=== PATIENT | male | born 1965 | race American Indian/Alaskan Native ===

== ENCOUNTER 2017-02-14 21:47 | Emergency (ER) | payer MEDICAID ==
[2017-02-14 22:22] VITALS: BMI 29.0
[2017-02-14 22:26] VITALS: TEMP 98.9
--- NOTE | 2017-02-14 23:02 | ED PDOC ---
Arrival/HPI - General Chief Complaint: Seizure Time Seen by Provider: 02/14/17 22:16 Historian: Patient - History of Present Illness Narrative History of Present Illness (Text): 02/14/17 22:58 A 51 year old male, whose past medical history includes seizures, brought in by ambulance after episode of seizure that occurred an hour ago complaining of pain to the right clavicle. Patient notes he hit his collar bone but does not remember seizure. Patient also notes seizures are worse in the summer heat. Reports last seizure was two months ago. Patient denies any neck pain, vomiting , diarrhea, cough, fever or any other complaints at this time. Time/Duration: 1 hour Symptom Onset: Sudden Activities at Onset: Rest Associated Symptoms (Text): none Past Medical History - Provider Review Nursing Documentation Reviewed: Yes - Cardiac Hx Cardiac Disorders: No - Pulmonary Hx Respiratory Disorders: No - Neurological Hx Seizures: Yes - HEENT Hx HEENT Disorder: No - Renal Hx Renal Disorder: No - Endocrine/Metabolic Hx Endocrine Disorders: No - Hematological/Oncological Hx Blood Disorders: No - Integumentary Hx Dermatological Disorder: No - Musculoskeletal/Rheumatological Hx Musculoskeletal Disorders: No - Gastrointestinal Hx Gastrointestinal Disorders: No - Genitourinary/Gynecological Hx Genitourinary Disorders: No - Psychiatric Hx Psychophysiologic Disorder: No Hx Substance Use: No - Anesthesia Hx Anesthesia: No Family/Social History - Physician Review Nursing Documentation Reviewed: Yes Family/Social History: No Known Family HX Smoking Status: Light Smoker < 10 Cigarettes Daily Hx Alcohol Use: Yes Frequency of alcohol use: Socially Hx Substance Use: No Allergies/Home Meds Allergies/Adverse Reactions: Allergies No Known Allergies Allergy (Verified 02/14/17 22:14) Home Medications: Home Meds Medication Instructions Recorded Confirmed Divalproex [Depakote ER] 500 mg PO TID 02/14/17 02/14/17 Lamotrigine [Lamictal] 150 mg PO TID 02/14/17 02/14/17 Review of Systems - Physician Review All systems were reviewed & negative as marked: Yes - Review of Systems Constitutional: absent: Fevers Respiratory: absent: Cough Gastrointestinal: absent: Diarrhea, Vomiting Musculoskeletal: Other (clavicle pain). absent: Neck Pain Neurological: Seizure Physical Exam Vital Signs Reviewed: Yes Vital Signs Temp Pulse Resp BP Pulse Ox 02/15/17 01:00 60 20 121/70 100 02/15/17 00:00 67 20 114/73 97 02/14/17 23:00 81 18 126/78 96 02/14/17 22:25 98.9 F 82 16 108/68 98 02/14/17 22:15 98.4 F 83 16 108/68 99 Temperature: Afebrile Blood Pressure: Normal Pulse: Regular Respiratory Rate: Normal Appearance: Positive for: Well-Appearing, Non-Toxic, Comfortable Pain Distress: None Mental Status: Positive for: Alert and Oriented X 3 - Systems Exam Head: Present: Atraumatic, Normocephalic Pupils: Present: PERRL Extroacular Muscles: Present: EOMI Conjunctiva: Present: Normal Mouth: Present: Moist Mucous Membranes Nose (Internal): No: Epistaxis Neck: Present: Normal Range of Motion Respiratory/Chest: Present: Clear to Auscultation, Good Air Exchange. No: Respiratory Distress, Accessory Muscle Use Cardiovascular: Present: Regular Rate and Rhythm, Normal S1, S2. No: Murmurs Abdomen: Present: Normal Bowel Sounds. No: Tenderness, Distention, Peritoneal Signs Back: Present: Normal Inspection Upper Extremity: Present: Tenderness (over mid clavicle). No: Cyanosis, Edema Lower Extremity: Present: Normal Inspection. No: Edema Neurological: Present: GCS=15, CN II-XII Intact, Speech Normal Skin: Present: Warm, Dry, Normal Color, Abrasion (superficial inferior lateral L eye). No: Rashes Psychiatric: Present: Alert, Oriented x 3, Normal Insight, Normal Concentration Medical Decision Making ED Course and Treatment: 02/15/17 00:57 Radiology right clavicle: No acute fracture, interpreted by me. - Lab Interpretations Lab Results: Lab Results 02/14/17 22:58: POC Glucose (mg/dL) 108 I have reviewed the lab results: Yes - RAD Interpretation Radiology Orders: 02/14/17 22:41 CLAVICLE RIGHT [RAD] Stat - EKG Interpretation Interpreted by ED Physician: Yes Type: 12 lead EKG - Medication Orders Current Medication Orders: Discontinued Medications Ibuprofen (Motrin Tab) 800 mg PO STAT STA Stop: 02/14/17 22:42 Last Admin: 02/14/17 23:07 Dose: 800 mg - Scribe Statement The provider has reviewed the documentation as recorded by the Shane Patterson Provider Scribe Attestation: All medical record entries made by the Fawnibe were at my direction and personally dictated by me. I have reviewed the chart and agree that the record accurately reflects my personal performance of the history, physical exam, medical decision making, and the department course for this patient. I have also personally directed, reviewed, and agree with the discharge instructions and disposition. Disposition/Present on Arrival - Present on Arrival History of DVT/PE: No History of Uncontrolled Diabetes: No Urinary Catheter: No History of Decub. Ulcer: No History Surgical Site Infection Following: None - Disposition Diagnosis: Clavicle pain Disposition: HOME/ ROUTINE Disposition Time: 01:04 Condition: STABLE Additional Instructions: Please follow up with your primary doctor. Return to the ER for any worsening symptoms or for any other concerns. Prescriptions: Naproxen [Naprosyn] 500 mg PO Q12H PRN #10 tablet PRN Reason: Pain, Moderate (4-7) Referrals: [facility] at [facility] [place] [Outside] - Follow up with primary
[2017-02-15 00:23] VITALS: RESP 20
[2017-02-15 01:16] VITALS: BP 121/70; PULSE 60; O2SAT 100
--- NOTE | 2017-02-15 08:51 | RAD ---
PROCEDURE: Radiographs of the right clavicle. HISTORY: fall pain COMPARISON: None available. FINDINGS: RIGHT CLAVICLE: No acute displaced fracture identified. Tiny well corticated ossific density adjacent to acromioclavicular joint space appears chronic. JOINTS: Glenohumeral joint space narrowing. Acromioclavicular arthropathy. SOFT TISSUES: Grossly unremarkable. OTHER FINDINGS: None. IMPRESSION: No acute displaced fracture identified. If symptoms persist or if there is continued clinical concern, x-ray follow-up in 7-10 days should be considered.
--- NOTE | 2017-02-15 15:52 | CARD ---
APPROVED REPORT EKG Measurement Heart [id number] <Conclusion> Normal sinus rhythm Normal ECG
== END 2017-02-15 01:23 | disposition home or self-care (01) ==
LOC: MERGE 21:47 → ED 21:47
DX: M25.511 Pain in right shoulder (principal)

== ENCOUNTER 2017-03-08 13:46 | Emergency (ER) | payer MEDICAID ==
[2017-03-08 13:57] VITALS: TEMP 98.3; BMI 27.7
--- NOTE | 2017-03-08 14:49 | ED PDOC ---
Arrival/HPI - General Chief Complaint: Chest Pain Time Seen by Provider: 03/08/17 13:50 Historian: Patient - History of Present Illness Narrative History of Present Illness (Text): 03/08/17 14:32 51 year old male whose past medical history includes seizures, on Lamictal and Depakote, presents to the emergency department complaining of chest pain and periumbilical pain that began 1 hour prior to arrival. Patient reports nausea and one episode of non-bloody vomiting before the pain began. He reports the chest pain has since resolved but is still complaining of periumbilical pain. Denies fever of chills. No diarrhea. No headache, urinary, stool changes, or other complaints. Time/Duration: 1 hour Symptom Onset: Sudden Modifying Factors (Text): None Context: Home Past Medical History - Provider Review Nursing Documentation Reviewed: Yes - Cardiac Hx Cardiac Disorders: No - Pulmonary Hx Respiratory Disorders: No - Neurological Hx Seizures: Yes - HEENT Hx HEENT Disorder: No - Renal Hx Renal Disorder: No - Endocrine/Metabolic Hx Endocrine Disorders: No - Hematological/Oncological Hx Blood Disorders: No - Integumentary Hx Dermatological Disorder: No - Musculoskeletal/Rheumatological Hx Musculoskeletal Disorders: No - Gastrointestinal Hx Gastrointestinal Disorders: No - Genitourinary/Gynecological Hx Genitourinary Disorders: No - Psychiatric Hx Psychophysiologic Disorder: No Hx Substance Use: No - Anesthesia Hx Anesthesia: No Family/Social History - Physician Review Nursing Documentation Reviewed: Yes Family/Social History: Unknown Family HX Smoking Status: Light Smoker < 10 Cigarettes Daily Hx Alcohol Use: Yes Hx Substance Use: No Allergies/Home Meds Allergies/Adverse Reactions: Allergies No Known Allergies Allergy (Verified 02/14/17 22:14) Home Medications: Home Meds Medication Instructions Recorded Confirmed Divalproex [Depakote ER] 500 mg PO TID 02/14/17 03/08/17 Lamotrigine [Lamictal] 150 mg PO TID 02/14/17 03/08/17 Review of Systems - Physician Review All systems were reviewed & negative as marked: Yes - Review of Systems Constitutional: Other (No chills). absent: Fevers Eyes: absent: Vision Changes ENT: absent: Hearing Changes Respiratory: absent: SOB Cardiovascular: Chest Pain (resolved) Gastrointestinal: Abdominal Pain (periumbilical), Nausea, Vomiting. absent: Stool Changes, Diarrhea Genitourinary Male: absent: Dysuria, Frequency, Hematuria Musculoskeletal: absent: Back Pain Skin: absent: Rash Neurological: absent: Headache, Dizziness Endocrine: absent: Diaphoresis Physical Exam Vital Signs Reviewed: Yes Vital Signs Temp Pulse Resp BP Pulse Ox 03/08/17 20:43 68 17 128/86 100 03/08/17 19:30 65 17 120/87 100 03/08/17 17:00 61 18 118/85 100 03/08/17 15:22 58 L 18 115/78 100 03/08/17 13:54 98.3 F 55 L 16 113/74 98 Temperature: Afebrile Blood Pressure: Normal Pulse: Bradycardic Respiratory Rate: Normal Appearance: Positive for: Well-Appearing, Non-Toxic Pain Distress: Mild Mental Status: Positive for: Alert and Oriented X 3 - Systems Exam Head: Present: Atraumatic, Normocephalic Pupils: Present: PERRL Conjunctiva: Present: Normal Mouth: Present: Moist Mucous Membranes Pharnyx: Present: Normal. No: ERYTHEMA, EXUDATE Neck: Present: Normal Range of Motion Respiratory/Chest: Present: Clear to Auscultation, Good Air Exchange. No: Respiratory Distress, Accessory Muscle Use Cardiovascular: Present: Regular Rate and Rhythm, Normal S1, S2. No: Murmurs Abdomen: Present: Tenderness (ttp in the epigastric and b/L LQ ), Normal Bowel Sounds. No: Distention, Peritoneal Signs Back: Present: Normal Inspection Upper Extremity: Present: Normal Inspection. No: Cyanosis, Edema Lower Extremity: Present: Normal Inspection. No: Edema Neurological: Present: GCS=15, CN II-XII Intact, Speech Normal Skin: Present: Warm, Dry, Normal Color. No: Rashes Psychiatric: Present: Alert, Oriented x 3, Normal Insight, Normal Concentration Medical Decision Making ED Course and Treatment: Impression: 51 year old male whose past medical history includes seizures, on Lamictal and Depakote, presents to the emergency department complaining of chest pain and periumbilical pain that began 1 hour prior to arrival. Differential Diagnosis include but are not limited to: Gastritis vs pancreatitis vs ACS vs appendicitis vs cholecystitis Plan: -- EKG, Chest X-ray -- Labs -- Reassess and disposition Prior Visits: Notes and results from previous visits were reviewed. Patient last seen in ED on 02/14/17 for seizure and discharged home. Progress Notes: - Lab Interpretations Lab Results: 03/08/17 14:35 03/08/17 14:35 Lab Results 03/08/17 14:35: Alcohol, Quantitative < 10 03/08/17 14:35: Valproic Acid 73 03/08/17 14:35: Urine Opiates Screen Negative, Urine Methadone Screen Negative, Ur Barbiturates Screen Negative, Ur Phencyclidine Scrn Negative, Ur Amphetamines Screen Negative, U Benzodiazepines Scrn Negative, U Oth Cocaine Metabols Negative, U Cannabinoids Screen Negative 03/08/17 14:35: Sodium 140, Potassium 4.0, Chloride 104, Carbon Dioxide 28, Anion Gap 12, BUN 17, Creatinine 0.9, Est GFR ( Amer) > 60, Est GFR (Non- Af Amer) > 60, Random Glucose 93, Calcium 9.1, Magnesium 1.7, Total Bilirubin 0.5, AST 27, ALT 15, Alkaline Phosphatase 25 L, Lactate Dehydrogenase 428, Total Creatine Kinase 167, Troponin I < 0.01, Total Protein 7.1, Albumin 3.7, Globulin 3.4, Albumin/Globulin Ratio 1.1, Lipase 40 03/08/17 14:35: Urine Color Yellow, Urine Appearance Clear, Urine pH 7.0, Ur Specific [place] 1.020, Urine Protein Trace H, Urine Glucose (UA) Negative, Urine Ketones Trace H, Urine Blood Negative, Urine Nitrate Negative, Urine Bilirubin Small H, Urine Urobilinogen 4.0 H, Ur Leukocyte Esterase Negative, Urine RBC 0 - 2, Urine WBC 0 - 2, Ur Epithelial Cells 0 - 2, Urine Bacteria Small 03/08/17 14:35: PT 12.3 H, INR 1.14 H, APTT 24.9 03/08/17 14:35: WBC 3.1 L, RBC 4.42, Hgb 13.9 L, Hct 40.8 L, MCV 92.3, MCH 31.4 , MCHC 34.1, RDW 13.6, Plt Count 158, MPV 10.1, Gran % 47.6 L, Lymph % (Auto) 39.0 H, [place] % (Auto) 11.1 H, Eos % (Auto) 1.6, Baso % (Auto) 0.7, Gran # 1.45, Lymph # 1.2, [place] # 0.3, Eos # 0.1, Baso # 0.02 - RAD Interpretation Narrative RAD Interpretations (Text): EXAM: CT Abdomen and Pelvis Without Intravenous Contrast FINDINGS: Lower thorax: Mild atelectatic changes are identified at the lung bases. ABDOMEN: Liver: Within the right lobe of the liver medially, there is a 1.0 x 0.7 cm hypodense lesion. This is incompletely characterized without intravenous contrast. Gallbladder and bile ducts: No calcified stones. No ductal dilation. Pancreas: Normal contour. No ductal dilation. Spleen: No splenomegaly. Adrenals: No mass. Kidneys and ureters: Contrast is identified within the renal collecting systems , ureters and bladder. This limits evaluation for renal calculi. No hydronephrosis. Stomach and bowel: There is gaseous and fecal distention of the rectum. Evaluation of bowel is limited by the absence of oral contrast. Appendix: A gas filled appendix identified measuring 7-8 mm in diameter. No surrounding acute inflammatory changes are visualized to suggest acute appendicitis. PELVIS: Bladder: See above. Reproductive: Unremarkable as visualized. ABDOMEN and PELVIS: Intraperitoneal space: No free air. Bones/joints: Hypertrophic degenerative changes are noted within the spine. Moderate narrowing of the thecal sac is visualized at L3-4, with mild narrowing of the thecal sac at L4-5. There is a posterior disc bulge/protrusion at L3-4. Soft tissues: No acute abnormality. Vasculature: Atherosclerotic changes are identified of the iliac arteries. No abdominal aortic aneurysm. Lymph nodes: No enlarged lymph nodes. IMPRESSION: 1. A gas filled appendix identified measuring 7-8 mm in diameter. No surrounding acute inflammatory changes are visualized to suggest acute appendicitis. Clinical correlation is recommended. 2. Within the right lobe of the liver medially, there is a 1.0 x 0.7 cm hypodense lesion. This is incompletely characterized without intravenous contrast. A nonemergent MRI of the abdomen with contrast is recommended. 3. There is gaseous and fecal distention of the rectum. 4. Additional CT findings described above. Thank you for allowing us to participate in the care of your patient. Dictated and Authenticated by: Jeronimo Yuan MD 03/08/2017 8:18 PM Eastern Time ([place] & [place]) Radiology Orders: 03/08/17 14:13 CHEST TWO VIEWS (PA/LAT) [RAD] Stat 03/08/17 16:26 ABD & PELVIS W/O PO OR IV CONT [CT] Stat - EKG Interpretation EKG Interpretation (Text): EKG shows sinus bradycardia at 57 BPM, normal intervals, normal axis, no ST changes. Interpreted by me. Interpreted by ED Physician: Yes Type: 12 lead EKG - Medication Orders Current Medication Orders: Discontinued Medications Famotidine (Pepcid) 20 mg IVP STAT STA Stop: 03/08/17 14:58 Last Admin: 03/08/17 15:18 Dose: 20 mg Sodium Chloride (Sodium Chloride 0.9%) 1,000 mls @ 999 mls/hr IV .Q1H1M STA Stop: 03/08/17 15:57 Last Admin: 03/08/17 15:19 Dose: 999 mls/hr Iohexol (Omnipaque 350 100 Ml) Confirm Administered Dose 350 mg .ROUTE .STK-MED ONE Stop: 03/08/17 17:33 Iohexol (Omnipaque 350 100 Ml) Confirm Administered Dose 350 mg .ROUTE .STK-MED ONE Stop: 03/08/17 18:14 Ondansetron HCl (Zofran Inj) 4 mg IVP STAT STA Stop: 03/08/17 14:58 Last Admin: 03/08/17 15:19 Dose: 4 mg ED OBSERVATION Discharge: Yes Date of observation admission: 03/08/17 Time of observation admission: 14:10 - Observation admission statement Patient is being placed in observation because:: abdominal pain - Goals of Observation Goals of observation are:: Workup and diagnosis and monitor patient's response to treatments in the ER - Progress Note Progress Note: 03/08/17 14:10 On initial exam, patient in mild pain as noted. 03/08/17 16:05 Patient resting and reports improvement in pain but persistence of it 03/08/17 16:[address] a/p to r/o appendicitis 03/08/17 20:21 CT scan showing no acute findings. Recommends follow up MRI. Given patient's chest pain, he will need further observation on tele, but he is refusing and insisting to be discharged, saying he will f/u pmd. He says he feels much better with full resolution of symptoms. Patient understanding his risk of ND and and choosing to sign ama. He signed the ama sheet. Patient also informed of CT scan result recommending outpatient MRI to be arranged by PCP, which he has. - Scribe Statement The provider has reviewed the documentation as recorded by the Shane Esqueda Provider Scribe Attestation: All medical record entries made by the Fawnibe were at my direction and personally dictated by me. I have reviewed the chart and agree that the record accurately reflects my personal performance of the history, physical exam, medical decision making, and the department course for this patient. I have also personally directed, reviewed, and agree with the discharge instructions and disposition. Disposition/Present on Arrival - Present on Arrival Any Indicators Present on Arrival: No History of DVT/PE: No History of Uncontrolled Diabetes: No Urinary Catheter: No History of Decub. Ulcer: No History Surgical Site Infection Following: None - Disposition Have Diagnosis and Disposition been Completed?: Yes Diagnosis: Chest pain, Abdominal pain Disposition: AGAINST MEDICAL ADVICE Disposition Time: 20:30 Patient Plan: Other (AMA) Condition: STABLE Discharge Instructions (ExitCare): Chest Pain (ED), Abdominal Pain (ED) Additional Instructions: Per CT scan results, you need a nonemergent MRI with contrast of the abdomen to assess a hypodense liver lesion, which your primary care doctor should arrange for. Otherwise, return to the emergency department if any new concerning symptoms. Referrals: PCP,NO [Primary Care Provider] - Follow up with primary
[2017-03-08] MEDS ORDERED: Sodium Chloride 0.9% 1,000 ML IV STA (14:57)
[2017-03-08 15:01] LABS: URINE BILIRUBIN SMALL (NEGATIVE); URINE BLOOD NEGATIVE (NEGATIVE); URINE GLUCOSE (UA) NEGATIVE (NEGATIVE); URINE LEUKOCYTE ESTERASE NEGATIVE Leu/uL (NEGATIVE); URINE NITRATE NEGATIVE (NEGATIVE); URINE PROTEIN TRACE mg/dL (<30 mg/dL)
[2017-03-08 15:03] LABS: BASO # 0.02 K/mm3 (0.0-2.0); BASO % 0.7 % (0.0-3.0); EOS # 0.1 (0.0-0.7); EOS % 1.6 % (1.5-5.0); GRAN # 1.45 (1.4-6.5); GRAN % 47.6 % (50.0-68.0); HEMOGLOBIN 13.9 gm/dL (14.0-18.0); LYMPH # 1.2 (1.2-3.4); MEAN CELL VOLUME 92.3 fL (80.0-105.0); MEAN CORPUSCULAR HEMOGLOBIN 31.4 pg (25.0-35.0); MEAN CORPUSCULAR HGB CONC 34.1 g/dl (31.0-37.0); MEAN PLATELET VOLUME 10.1 fl (7.0-11.0); MONO # 0.3 (0.1-0.6); MONO % 11.1 % (1.0-6.0); PLATELET COUNT 158 10^3/uL (120.0-450.0); RBC 4.42 10^6/uL (3.5-6.1); RED CELL DISTRIBUTION WIDTH 13.6 % (11.5-14.5); URINE APPEARANCE CLEAR (CLEAR); URINE COLOR YELLOW (YELLOW); WHITE BLOOD COUNT 3.1 10^3/ul (4.5-11.0)
[2017-03-08 15:12] LABS: INR 1.14 (0.93-1.08); PARTIAL THROMBOPLASTIN TIME 24.9 Seconds (23.7-30.8); PROTHROMBIN TIME 12.3 Seconds (9.9-11.8); URINE BACTERIA SMALL (NEG); URINE EPITHELIAL CELLS 0 - 2 /hpf (0-5); URINE RBC 0 - 2 /hpf (0-2); URINE WBC 0 - 2 /hpf (0-6)
[2017-03-08 15:13] LABS: ALB/GLOB RATIO 1.1 (1.1-1.8); ALBUMIN 3.7 g/dL (3.0-4.8); ALT/SGPT 15 U/L (7-56); AST/SGOT 27 U/L (15-59); BLOOD UREA NITROGEN 17 mg/dL (7-21); CALCIUM 9.1 mg/dL (8.4-10.5); GFR AFRICAN-AMERICAN > 60; GFR NON-AFRICAN AMERICAN > 60; LIPASE 40 U/L (23-300); MAGNESIUM 1.7 mg/dL (1.7-2.2)
[2017-03-08 15:23] VITALS: O2SAT 100
[2017-03-08 15:32] LABS: BARBITURATES, UR NEGATIVE (NEGATIVE); BENZODIAZEPINES, UR NEGATIVE (NEGATIVE); OPIATES, UR NEGATIVE (NEGATIVE); PHENCYCLIDINE, UR NEGATIVE (NEGATIVE); TROPONIN I < 0.01 ng/mL
--- NOTE | 2017-03-08 16:13 | RAD ---
HISTORY: cp, abd pain COMPARISON: No prior. TECHNIQUE: Chest PA and lateral FINDINGS: LUNGS: No active pulmonary disease. PLEURA: No significant pleural effusion identified. No pneumothorax apparent. CARDIOVASCULAR: Normal. OSSEOUS STRUCTURES: No significant abnormalities. VISUALIZED UPPER ABDOMEN: Normal. OTHER FINDINGS: None. IMPRESSION: No active disease.
[2017-03-08] MEDS ORDERED: Iohexol 350 MG/100 ML VIAL ONE ×2 (17:32→18:13)
--- NOTE | 2017-03-08 20:18 | CT ---
EXAM: CT Abdomen and Pelvis Without Intravenous Contrast CLINICAL HISTORY: The patient age is 51 years old and is male; Pain; Abdominal pain; Acute; Additional info: Rlq abd pain - R/O appendicitis Facility exam id and description: Ct abdpelscon abd pelvis w/o po or iv cont TECHNIQUE: Axial computed tomography images of the abdomen and pelvis without intravenous contrast. This CT exam was performed using one or more of the following dose reduction techniques: automated exposure control, adjustment of the mA and/or kV according to patient size, and/or use of iterative reconstruction technique. Coronal and sagittal reformatted images were created and reviewed. EXAM DATE/TIME: 03/08/2017 4:26 PM COMPARISON: No relevant prior studies available. FINDINGS: Lower thorax: Mild atelectatic changes are identified at the lung bases. ABDOMEN: Liver: Within the right lobe of the liver medially, there is a 1.0 x 0.7 cm hypodense lesion. This is incompletely characterized without intravenous contrast. Gallbladder and bile ducts: No calcified stones. No ductal dilation. Pancreas: Normal contour. No ductal dilation. Spleen: No splenomegaly. Adrenals: No mass. Kidneys and ureters: Contrast is identified within the renal collecting systems, ureters and bladder. This limits evaluation for renal calculi. No hydronephrosis. Stomach and bowel: There is gaseous and fecal distention of the rectum. Evaluation of bowel is limited by the absence of oral contrast. Appendix: A gas filled appendix identified measuring 7-8 mm in diameter. No surrounding acute inflammatory changes are visualized to suggest acute appendicitis. PELVIS: Bladder: See above. Reproductive: Unremarkable as visualized. ABDOMEN and PELVIS: Intraperitoneal space: No free air. Bones/joints: Hypertrophic degenerative changes are noted within the spine. Moderate narrowing of the thecal sac is visualized at L3-4, with mild narrowing of the thecal sac at L4-5. There is a posterior disc bulge/protrusion at L3-4. Soft tissues: No acute abnormality. Vasculature: Atherosclerotic changes are identified of the iliac arteries. No abdominal aortic aneurysm. Lymph nodes: No enlarged lymph nodes. IMPRESSION: 1. A gas filled appendix identified measuring 7-8 mm in diameter. No surrounding acute inflammatory changes are visualized to suggest acute appendicitis. Clinical correlation is recommended. 2. Within the right lobe of the liver medially, there is a 1.0 x 0.7 cm hypodense lesion. This is incompletely characterized without intravenous contrast. A nonemergent MRI of the abdomen with contrast is recommended. 3. There is gaseous and fecal distention of the rectum. 4. Additional CT findings described above.
[2017-03-08 20:44] VITALS: BP 128/86; PULSE 68; RESP 17
--- NOTE | 2017-03-09 09:10 | CARD ---
APPROVED REPORT EKG Measurement Heart [id number] <Conclusion> Sinus bradycardia with sinus arrhythmia LVH by voltage No change except slower rate
== END 2017-03-08 20:49 | disposition left against medical advice (07) ==
LOC: ED 13:46
DX: R07.9 Chest pain, unspecified (principal); R10.9 Unspecified abdominal pain
CPT/HCPCS: 71020; 74176; 80053; 80164; 80320; 80324; 80345; 80346; 80349; 80353; 80358; 80361; 81001; 82550; 83615; 83690; 83735; 83992; 84484; 85025; 85610; 85730; 93005; 96361; 96374; 96375; 99285; J2405; J7040; Q9967

== ENCOUNTER 2017-04-04 21:17 | Observation (INO) | payer MEDICAID ==
[2017-04-04 21:17] VITALS: BMI 27.7
[2017-04-04 21:36] VITALS: O2SAT 98
[2017-04-04 21:59] LABS: BASO # 0.01 K/mm3 (0.0-2.0); BASO % 0.2 % (0.0-3.0); EOS # 0.1 (0.0-0.7); EOS % 1.7 % (1.5-5.0); GRAN # 3.23 (1.4-6.5); GRAN % 53.7 % (50.0-68.0); HEMOGLOBIN 14.5 gm/dL (14.0-18.0); LYMPH # 2.2 (1.2-3.4); LYMPH % 35.9 % (22.0-35.0); MEAN CELL VOLUME 90.7 fL (80.0-105.0); MEAN CORPUSCULAR HEMOGLOBIN 31.3 pg (25.0-35.0); MEAN CORPUSCULAR HGB CONC 34.4 g/dl (31.0-37.0); MEAN PLATELET VOLUME 9.9 fl (7.0-11.0); MONO # 0.5 (0.1-0.6); MONO % 8.5 % (1.0-6.0); PLATELET COUNT 163 10^3/uL (120.0-450.0); RBC 4.64 10^6/uL (3.5-6.1); RED CELL DISTRIBUTION WIDTH 13.7 % (11.5-14.5)
--- NOTE | 2017-04-04 21:59 | ED PDOC ---
Arrival/HPI - General Chief Complaint: Seizure Time Seen by Provider: 04/04/17 21:21 Historian: Patient - History of Present Illness Narrative History of Present Illness (Text): 04/04/17 21:59 A 51 year old male presents to the emergency department complaining of seizure episode. Patient reports he had a seizure episode in the morning and one prior to arrival. Reports his friend was a witness, who noted episode lasted 5 minutes. Patient was outside and awake by the time EMS came. Notes he fell but denies any loss of consciousness. Patient notes some left clavicle pain but denies any headache, neck pain, fever, cough, vomiting, or any other complaints at this time. Denies any alcohol or drug use. Symptom Onset: Sudden Activities at Onset: Rest Modifying Factors (Text): none Context: Street Past Medical History - Provider Review Nursing Documentation Reviewed: Yes - Cardiac Hx Cardiac Disorders: No - Pulmonary Hx Respiratory Disorders: No - Neurological Hx Seizures: Yes - HEENT Hx HEENT Disorder: No - Renal Hx Renal Disorder: No - Endocrine/Metabolic Hx Endocrine Disorders: No - Hematological/Oncological Hx Blood Disorders: No - Integumentary Hx Dermatological Disorder: No - Musculoskeletal/Rheumatological Hx Musculoskeletal Disorders: No - Gastrointestinal Hx Gastrointestinal Disorders: No - Genitourinary/Gynecological Hx Genitourinary Disorders: No - Psychiatric Hx Psychophysiologic Disorder: No Hx Substance Use: No - Anesthesia Hx Anesthesia: No Family/Social History - Physician Review Nursing Documentation Reviewed: Yes Family/Social History: No Known Family HX Smoking Status: Light Smoker < 10 Cigarettes Daily Hx Alcohol Use: Yes Hx Substance Use: No Allergies/Home Meds Allergies/Adverse Reactions: Allergies No Known Allergies Allergy (Verified 04/04/17 21:33) Home Medications: Home Meds Medication Instructions Recorded Confirmed Divalproex [Depakote ER] 500 mg PO TID 02/14/17 04/04/17 Lamotrigine [Lamictal] 150 mg PO TID 02/14/17 04/04/17 Review of Systems - Physician Review All systems were reviewed & negative as marked: Yes - Review of Systems Constitutional: absent: Fevers Respiratory: absent: Cough Gastrointestinal: absent: Vomiting Musculoskeletal: absent: Neck Pain Neurological: Seizure. absent: Headache Physical Exam Vital Signs Reviewed: Yes Vital Signs Temp Pulse Resp BP Pulse Ox 04/05/17 03:17 60 18 132/77 98 04/05/17 01:17 70 18 133/78 98 04/04/17 21:35 98.8 F 83 16 134/88 98 Temperature: Afebrile Blood Pressure: Normal Pulse: Regular Respiratory Rate: Normal Appearance: Positive for: Well-Appearing, Non-Toxic, Comfortable Pain Distress: None Mental Status: Positive for: Alert and Oriented X 3 - Systems Exam Head: Present: Atraumatic, Normocephalic Pupils: Present: PERRL Extroacular Muscles: Present: EOMI Conjunctiva: Present: Normal Mouth: Present: Moist Mucous Membranes Neck: Present: Normal Range of Motion. No: MIDLINE TENDERNESS Respiratory/Chest: Present: Clear to Auscultation, Good Air Exchange. No: Respiratory Distress, Accessory Muscle Use Cardiovascular: Present: Regular Rate and Rhythm, Normal S1, S2. No: Murmurs Abdomen: Present: Normal Bowel Sounds. No: Tenderness, Distention, Peritoneal Signs Back: Present: Normal Inspection Upper Extremity: Present: Normal Inspection. No: Cyanosis, Edema Lower Extremity: Present: Normal Inspection. No: Edema Neurological: Present: GCS=15, CN II-XII Intact, Speech Normal, Normal Sensory Function, Normal Cerebellar Funct Skin: Present: Warm, Dry, Normal Color. No: Rashes Psychiatric: Present: Alert, Oriented x 3, Normal Insight, Normal Concentration Medical Decision Making ED Course and Treatment: 04/04/17 23:58 EKG: Ordered, reviewed, and independently interpreted the EKG. Rate : 60 BPM Rhythm : NSR Interpretation : Normal intervals, normal axis pt with seizure hx with seizures once a month or less, now with two today. will admit for obs, neuro consult. - Lab Interpretations Lab Results: 04/04/17 21:25 04/04/17 21:25 Lab Results 04/04/17 21:25: Alcohol, Quantitative < 10 04/04/17 21:25: Valproic Acid 20 L 04/04/17 21:25: Sodium 140, Potassium 3.8, Chloride 104, Carbon Dioxide 23, Anion Gap 17, BUN 19, Creatinine 1.0, Est GFR ( Amer) > 60, Est GFR (Non- Af Amer) > 60, Random Glucose 106, Calcium 9.5, Total Bilirubin 0.8, AST 22, ALT 17, Alkaline Phosphatase 25 L, Total Protein 7.5, Albumin 4.0, Globulin 3.5 , Albumin/Globulin Ratio 1.1 04/04/17 21:25: WBC 6.0 D, RBC 4.64, Hgb 14.5, Hct 42.1, MCV 90.7, MCH 31.3, MCHC 34.4, RDW 13.7, Plt Count 163, MPV 9.9, Gran % 53.7, Lymph % (Auto) 35.9 H , Mcclain % (Auto) 8.5 H, Eos % (Auto) 1.7, Baso % (Auto) 0.2, Gran # 3.23, Lymph # 2.2, Mcclain # 0.5, Eos # 0.1, Baso # 0.01 I have reviewed the lab results: Yes - EKG Interpretation Interpreted by ED Physician: Yes Type: 12 lead EKG - Medication Orders Current Medication Orders: Discontinued Medications Acetaminophen (Tylenol 325mg Tab) 650 mg PO Q6H PRN PRN Reason: Pain, moderate (4-7) Last Admin: 04/05/17 04:55 Dose: 650 mg Re-Assess: MAR Pain/Vitals Document 04/05/17 05:55 KTR (Rec: 04/05/17 06:55 KTR [facility] [id number] Pain Reassessment Is This A Pain ReAssessment? Yes Sleep Is patient sleeping during reassessment? Yes Divalproex Sodium (Depakote Dr(*Bid*)) 500 mg PO BID [facility] PRN Reason: Protocol Last Admin: 04/05/17 17:24 Dose: 500 mg Re-Assess: Reassess Psych Meds Document 04/05/17 18:24 (Rec: 04/05/17 19:26 [facility] [id number]) Reassess Psych Med Effective Famotidine (Pepcid) 20 mg PO 1000,2200 [facility] Last Admin: 04/05/17 10:47 Dose: 20 mg Lamotrigine (Lamictal) 150 mg PO TID [facility] Last Admin: 04/05/17 17:25 Dose: 150 mg Re-Assess: Reassess Psych Meds Document 04/05/17 18:25 (Rec: 04/05/17 19:26 [facility] [id number]) Reassess Psych Med Effective Lorazepam (Ativan) 1 mg IVP Q4H PRN; Protocol PRN Reason: Seizure activity - Scribe Statement The provider has reviewed the documentation as recorded by the Scribe Leta Patterson Provider Scribe Attestation: All medical record entries made by the Scribe were at my direction and personally dictated by me. I have reviewed the chart and agree that the record accurately reflects my personal performance of the history, physical exam, medical decision making, and the department course for this patient. I have also personally directed, reviewed, and agree with the discharge instructions and disposition. Disposition/Present on Arrival - Present on Arrival Any Indicators Present on Arrival: No History of DVT/PE: No History of Uncontrolled Diabetes: No Urinary Catheter: No History of Decub. Ulcer: No History Surgical Site Infection Following: None - Disposition Have Diagnosis and Disposition been Completed?: Yes Diagnosis: Seizures Disposition: HOSPITALIZED Disposition Time: 23:25 Condition: STABLE
[2017-04-04 22:07] LABS: ALB/GLOB RATIO 1.1 (1.1-1.8); ALT/SGPT 17 U/L (7-56); AST/SGOT 22 U/L (15-59); BLOOD UREA NITROGEN 19 mg/dL (7-21); CALCIUM 9.5 mg/dL (8.4-10.5); GFR AFRICAN-AMERICAN > 60; GFR NON-AFRICAN AMERICAN > 60
--- NOTE | 2017-04-05 01:04 | CP.PCM.HP ---
<Chani Rivera - Last Filed: 04/06/17 12:45> History of Present Illness - History of Present Illness History of Present Illness: CC: I have seizures HPI: 51 yo AA male PMHx of childhood seizures compliant on medications presents to ER for seizures. [place] [facility] [place] [facility] for similar presentation. Upon leaving [facility] patient had another seizure and thus decided to come to the ED at [facility]. He reported seizures were witnessed by his friend and he had a postictal state. On encounter he denied acute complaints of headache, dizziness, chest pain, palpitations, SOB, cough, abd pain, nausea, vomiting, bowel/bladder complaints, pain/swelling in his legs bilaterally. Patient denied any changes in appetite or weight. He did admit to excruciating R shoulder pain worse with movement and associated decreased ROM secondary to pain. Patient did not take anything to wilbur the pain. He denied any trauma PMD: Dr. 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 Patient has not travelled anywhere recently and denies any recent illnesses or sick contacts. admitted: R shoulder pain, seizures Present on Admission - Present on Admission Any Indicators Present on Admission: No Review of Systems - Constitutional Constitutional: As Per HPI. absent: Chills, Fever - EENT Eyes: As Per HPI. absent: Blurred Vision Ears: As Per HPI. absent: Dizziness Nose/Mouth/Throat: As Per HPI. absent: Sore Throat - Cardiovascular Cardiovascular: As Per HPI. absent: Chest Pain, Edema, Palpitations - Respiratory Respiratory: As Per HPI. absent: Cough, Dyspnea - Gastrointestinal Gastrointestinal: As Per HPI. absent: Abdominal Pain, Diarrhea, Nausea, Vomiting - Genitourinary Genitourinary: As Per HPI. absent: Dysuria - Musculoskeletal Musculoskeletal: As Per HPI, Limited Range of Motion (RUE) - Integumentary Integumentary: As Per HPI. absent: Rash - Neurological Neurological: As Per HPI. absent: Dizziness, Numbness, Tingling - Psychiatric Psychiatric: As Per HPI. absent: Anxiety Past Patient History - Past Social History Smoking Status: Light Smoker < 10 Cigarettes Daily - CARDIAC Hx Cardiac Disorders: No - PULMONARY Hx Respiratory Disorders: No - NEUROLOGICAL Hx Seizures: Yes - HEENT Hx HEENT Problems: No - RENAL Hx Chronic Kidney Disease: No - ENDOCRINE/METABOLIC Hx Endocrine Disorders: No - HEMATOLOGICAL/ONCOLOGICAL Hx Blood Disorders: No - INTEGUMENTARY Hx Dermatological Problems: No - MUSCULOSKELETAL/RHEUMATOLOGICAL Hx Musculoskeletal Disorders: No - GASTROINTESTINAL Hx Gastrointestinal Disorders: No - GENITOURINARY/GYNECOLOGICAL Hx Genitourinary Disorders: No - PSYCHIATRIC Hx Psychophysiologic Disorder: No Hx Substance Use: No - SURGICAL HISTORY Hx Surgeries: No - ANESTHESIA Hx Anesthesia: No Meds Allergies/Adverse Reactions: Allergies Allergy/AdvReac Type Severity Reaction Status Date / Time No Known Allergies Allergy Verified 04/04/17 21:33 Physical Exam - Constitutional Appears: Non-toxic, No Acute Distress - Head Exam Head Exam: ATRAUMATIC, NORMAL INSPECTION, NORMOCEPHALIC - Eye Exam Eye Exam: EOMI, Normal appearance. absent: Conjunctival injection, Scleral icterus Pupil Exam: NORMAL ACCOMODATION - ENT Exam ENT Exam: Mucous Membranes Moist - Neck Exam Neck exam: Positive for: Full Rom, Normal Inspection - Respiratory Exam Respiratory Exam: Clear to Auscultation Bilateral, NORMAL BREATHING PATTERN. absent: Accessory Muscle Use, Rales, Rhonchi, Wheezes - Cardiovascular Exam Cardiovascular Exam: REGULAR RHYTHM, RRR, +S1, +S2 - GI/Abdominal Exam GI & Abdominal Exam: Normal Bowel Sounds, Soft. absent: Firm, Guarding, Tenderness - Extremities Exam Extremities exam: Positive for: pedal pulses present. Negative for: pedal edema Additional comments: RUE decreased ROM secondary to pain - Back Exam Back exam: NORMAL INSPECTION. absent: rash noted - Neurological Exam Neurological exam: Alert, CN II-XII Intact, Oriented x3 - Psychiatric Exam Psychiatric exam: Normal Affect, Normal Mood - Skin Skin Exam: Dry, Intact, Normal Color, Warm Results - Vital Signs Recent Vital Signs: Last Vital Signs Temp 98.8 F 04/04/17 21:35 Pulse 83 04/04/17 21:35 Resp 16 04/04/17 21:35 BP 134/88 04/04/17 21:35 Pulse Ox 98 04/04/17 21:35 - Labs Result Diagrams: 04/05/17 07:18 04/05/17 07:18 Assessment & Plan - Assessment and Plan (Free Text) Assessment: 51 yo AA male PMHx of childhood seizures compliant on medications presents to ER for seizures Plan: Seizures -continue home medications: Lamictal and Depakote -f/u Depakote level -f/u head CT -Neurology Dr. Dee consulted- f/u reccs R shoulder pain -f/u R shoulder x-ray -f/u clavicle x-ray -Tylenol 650mg po q6 prn pain PPX -Pepcid 20mg po bid -SCDs -Regular diet Case discussed with Dr. Bernie Rivera PGY2 <Nj Gibbs - Last Filed: 04/06/17 19:59> Results - Vital Signs Recent Vital Signs: Last Vital Signs Temp 99.3 F 04/05/17 17:51 Pulse 66 04/05/17 18:00 Resp 20 04/05/17 17:51 BP 130/94 H 04/05/17 17:51 Pulse Ox 98 04/05/17 06:00 - Labs Result Diagrams: 04/05/17 07:18 04/05/17 07:18 Attending/Attestation - Attestation I have personally seen and examined this patient.: Yes I have fully participated in the care of the patient.: Yes I have reviewed all pertinent clinical information: Yes Notes (Text): 04/06/17 19:58 Agree with history , physical examination, assessment and plan.
[2017-04-05 04:48] VITALS: RESP 20
[2017-04-05 07:30] LABS: BASO # 0.01 K/mm3 (0.0-2.0); BASO % 0.2 % (0.0-3.0); EOS # 0.2 (0.0-0.7); EOS % 3.6 % (1.5-5.0); GRAN # 2.57 (1.4-6.5); GRAN % 48.3 % (50.0-68.0); HEMOGLOBIN 13.6 gm/dL (14.0-18.0); LYMPH # 1.9 (1.2-3.4); MEAN CELL VOLUME 91.1 fL (80.0-105.0); MEAN CORPUSCULAR HEMOGLOBIN 31.1 pg (25.0-35.0); MEAN CORPUSCULAR HGB CONC 34.1 g/dl (31.0-37.0); MEAN PLATELET VOLUME 9.7 fl (7.0-11.0); MONO # 0.6 (0.1-0.6); MONO % 11.9 % (1.0-6.0); PLATELET COUNT 148 10^3/uL (120.0-450.0); RBC 4.38 10^6/uL (3.5-6.1); RED CELL DISTRIBUTION WIDTH 13.7 % (11.5-14.5); WHITE BLOOD COUNT 5.3 10^3/ul (4.5-11.0)
[2017-04-05 07:54] LABS: ALB/GLOB RATIO 1.1 (1.1-1.8); ALBUMIN 3.4 g/dL (3.0-4.8); ALT/SGPT 13 U/L (7-56); AST/SGOT 20 U/L (15-59); BLOOD UREA NITROGEN 18 mg/dL (7-21); CALCIUM 9.2 mg/dL (8.4-10.5); GFR AFRICAN-AMERICAN > 60; GFR NON-AFRICAN AMERICAN > 60; MAGNESIUM 1.9 mg/dL (1.7-2.2)
--- NOTE | 2017-04-05 08:16 | CT ---
EXAM: CT Head Without Intravenous Contrast CLINICAL HISTORY: 51 years old, male; Signs and symptoms; Other: Seizure; Additional info: Seizures TECHNIQUE: Axial computed tomography images of the head/brain without intravenous contrast. This CT exam was performed using one or more of the following dose reduction techniques: automated exposure control, adjustment of the mA and/or kV according to patient size, and/or use of iterative reconstruction technique. COMPARISON: No relevant prior studies available. FINDINGS: Brain: Unremarkable. No hemorrhage. No significant white matter disease. No edema. Ventricles: Unremarkable. No ventriculomegaly. Bones/joints: There is right posterior parietal scalp swelling. There is no underlying fracture. Soft tissues: See above. Sinuses: Unremarkable as visualized. No acute sinusitis. Mastoid air cells: Unremarkable as visualized. No mastoid effusion. IMPRESSION: No acute findings.
--- NOTE | 2017-04-05 08:28 | RAD ---
HISTORY: seizures COMPARISON: No prior. FINDINGS: LUNGS: No active pulmonary disease. PLEURA: No significant pleural effusion identified, no pneumothorax apparent. CARDIOVASCULAR: Normal. OSSEOUS STRUCTURES: No significant abnormalities. VISUALIZED UPPER ABDOMEN: Normal. OTHER FINDINGS: None. IMPRESSION: No active disease.
--- NOTE | 2017-04-05 08:29 | RAD ---
PROCEDURE: Radiographs of the right clavicle. HISTORY: seizure, pain COMPARISON: None. FINDINGS: RIGHT CLAVICLE: No fracture or focal lesion. JOINTS: Right acromioclavicular and glenohumeral joints are grossly unremarkable. SOFT TISSUES: Grossly unremarkable. OTHER FINDINGS: None. IMPRESSION: Normal radiographs of the right clavicle.
[2017-04-05] MEDS: Divalproex 500 mg DR(BID formulation) PO SCH ×2 (10:47→17:24)
--- NOTE | 2017-04-05 11:08 | CARD ---
APPROVED REPORT EKG Measurement Heart [id number] <Conclusion> Normal sinus rhythm Normal ECG
--- NOTE | 2017-04-05 13:03 | RAD ---
PROCEDURE: Radiographs of the Right Shoulder HISTORY: R shoulder pain COMPARISON: No prior. FINDINGS: BONES: Normal. No fracture. JOINTS: Degenerative changes are seen in the acromioclavicular joint. There are hypertrophic changes in the acromion SOFT TISSUES: Normal. OTHER FINDINGS: None. IMPRESSION: No acute findings. Degenerative changes in the acromion
--- NOTE | 2017-04-05 14:21 | CON ---
DATE: 04/05/2017 CHIEF COMPLAINT: Seizure. HISTORY OF PRESENT ILLNESS: A 51-year-old man who has been having seizures since childhood on Depakote and Lamictal. On admission Depakote of 1 dose and came to the hospital questionable seizure, which was apparently noted by his friend, which lasted about 5 minutes. Apparently, he denies any decreased sensorium or any focal weakness in the extremities. His CAT scan showed no intracranial abnormalities. His Depakote level was low, but he is currently neurologically stable. PAST MEDICAL HISTORY: Seizure disorder since childhood and hypertension. SOCIAL HISTORY: Light smoker. Has not smoked in 2 years. He used to smoke 1 pack over 3 days. 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 Unemployed. MEDICATIONS: Reviewed by the nurse per reconciliation sheet. ALLERGIES: LACTOSE INTOLERANT. REVIEW OF SYSTEMS: A 14-point review of system is negative except as in the HPI. PHYSICAL EXAMINATION GENERAL: The patient is sitting up in bed, in no acute distress. HEENT: Head is atraumatic and normocephalic. PERRLA. Extraocular muscles intact. VITAL SIGNS: Temperature 98.4, pulse rate 64, blood pressure 124/84, respiratory rate 20, and oxygen saturation 98% by room air. NECK: Supple. No JVD. No adenopathy noted. HEART: S1 and S2, normal rate and rhythm. No murmurs, rubs, or gallops. LUNGS: Clear to auscultation. No adventitious sounds. ABDOMEN: Soft, nontender, nondistended. Bowel sounds present. EXTREMITIES: No clubbing, no cyanosis. Peripheral pulses 2+ felt bilaterally. NEUROLOGIC: The patient is alert and oriented to person and place, month, and year. Speech is fluent without any errors. Poor attention span, short though process. Recall after 5 minutes is 0 out of 3. Cranial nerves II through XII intact. Motor exam: Moves all extremities equally. No pronator drift seen. Sensory exam: Light touch, pinprick, proprioception and vibration are intact. DTRs are 1+ throughout. Coordination: [id number] intact. Gait is normal. LABORATORY DATA: Valproic acid is 20, which is low. Sodium 140, potassium 3.9, chloride 105, carbon dioxide 25, BUN 18, creatinine 0.9, random glucose of 107. ASSESSMENT AND PLAN: This is a 51-year-old male with a history of childhood seizures on Depakote and Lamictal, had breakthrough seizures. His laboratories are unremarkable. His neurologic examination is nonfocal. He missed 1 dose of valproic; therefore, his valproic level is low. At this time, he is clinically stable and to be discharged and followup with his neurologist and continue with Depakote ER 500 p.o. and Lamictal 150 mg p.o. t.i.d. Currently he is stable. Thank you for this consult. Bernabe Dee MD
--- NOTE | 2017-04-05 15:39 | CP.PCM.DIS ---
<Erica Fallon - Last Filed: 04/05/17 15:49> Provider - Provider Date of Admission: 04/04/17 23:25 Attending physician: Won Magana MD Consults: Dr. Bernabe Dee MD Time Spent in preparation of Discharge (in minutes): 37 Diagnosis - Discharge Diagnosis (1) Seizure disorder Status: Acute Hospital Course - Lab Results Lab Results: Most Recent Lab Values WBC 5.3 10^3/ul (4.5-11.0) 04/05/17 07:18 RBC 4.38 10^6/uL (3.5-6.1) 04/05/17 07:18 Hgb 13.6 gm/dL (14.0-18.0) L 04/05/17 07:18 Hct 39.9 % (42.0-52.0) L 04/05/17 07:18 MCV 91.1 fL (80.0-105.0) 04/05/17 07:18 MCH 31.1 pg (25.0-35.0) 04/05/17 07:18 MCHC 34.1 g/dl (31.0-37.0) 04/05/17 07:18 RDW 13.7 % (11.5-14.5) 04/05/17 07:18 Plt Count 148 10^3/uL (120.0-450.0) 04/05/17 07:18 MPV 9.7 fl (7.0-11.0) 04/05/17 07:18 Gran % 48.3 % (50.0-68.0) L 04/05/17 07:18 Lymph % (Auto) 36.0 % (22.0-35.0) H 04/05/17 07:18 [place] % (Auto) 11.9 % (1.0-6.0) H 04/05/17 07:18 Eos % (Auto) 3.6 % (1.5-5.0) 04/05/17 07:18 Baso % (Auto) 0.2 % (0.0-3.0) 04/05/17 07:18 Gran # 2.57 (1.4-6.5) 04/05/17 07:18 Lymph # 1.9 (1.2-3.4) 04/05/17 07:18 [place] # 0.6 (0.1-0.6) 04/05/17 07:18 Eos # 0.2 (0.0-0.7) 04/05/17 07:18 Baso # 0.01 K/mm3 (0.0-2.0) 04/05/17 07:18 Sodium 140 mmol/L (132-148) 04/05/17 07:18 Potassium 3.9 mmol/L (3.6-5.0) 04/05/17 07:18 Chloride 105 mmol/L (98-107) 04/05/17 07:18 Carbon Dioxide 25 mmol/L (21-33) 04/05/17 07:18 Anion Gap 14 (10-20) 04/05/17 07:18 BUN 18 mg/dL (7-21) 04/05/17 07:18 Creatinine 0.9 mg/dL (0.5-1.4) 04/05/17 07:18 Est GFR ( Amer) > 60 04/05/17 07:18 Est GFR (Non-Af Amer) > 60 04/05/17 07:18 Random Glucose 107 mg/dL (70-110) 04/05/17 07:18 Calcium 9.2 mg/dL (8.4-10.5) 04/05/17 07:18 Phosphorus 3.9 mg/dL (2.5-4.5) 04/05/17 07:18 Magnesium 1.9 mg/dL (1.7-2.2) 04/05/17 07:18 Total Bilirubin 0.6 mg/dL (0.2-1.3) 04/05/17 07:18 AST 20 U/L (15-59) 04/05/17 07:18 ALT 13 U/L (7-56) 04/05/17 07:18 Alkaline Phosphatase 25 U/L (38-133) L 04/05/17 07:18 Total Protein 6.6 g/dL (5.8-8.3) 04/05/17 07:18 Albumin 3.4 g/dL (3.0-4.8) 04/05/17 07:18 Globulin 3.2 gm/dL 04/05/17 07:18 Albumin/Globulin Ratio 1.1 (1.1-1.8) 04/05/17 07:18 Valproic Acid 20 ug/mL (50.0-100.0) L 04/04/17 21:25 Alcohol, Quantitative < 10 mg/dL (0-10) 04/04/17 21:25 - Hospital Course Hospital Course: Mr. Tracey is a 51 year old male with a history of seizures since childhood. He reports while walking outside he developed some convulsive episodes and fell and hit his head. He also reported having some right shoulder pain. He lives with his sister who is kind of like a tank tester for him. He states that he takes Depakote 500 mg twice a day and Lamictal 50 mg TID. He reports that he (may have) missed a dose of his Depakote yesterday. Normally, his sister is always around to ensure that he takes his medicine, but for some reason or another, he missed a dose of his Depakote yesterday. At any rate, at the time of his admission and during his stay there was no seizure activity noted. Diagnostic labs revealed a low Valproic acid level, consistent with him missing a dose of his Depakote, but CT of the head, X-ray of the right shoulder , and other test showed no acute concerns. He was advised to follow up with his primary care physician and Discharge Plan - Follow Up Plan Condition: GOOD Disposition: HOME/ ROUTINE Additional Instructions: 1) Patient to make sure he takes his medication as directed, and follow up with his primary care physician. 2) Patient recommended to follow up with neurologist as an outpatient. ANY SEIZURE ACTIVITY PLEASE CALL 911 PLEASE FOLLOW UP WITH PMD IN THE OFFICE <Won Magana - Last Filed: 04/05/17 21:28> Provider - Provider Date of Admission: 04/04/17 23:25 Attending physician: Jos Dhillon MD Hospital Course - Lab Results Lab Results: Most Recent Lab Values WBC 5.3 10^3/ul (4.5-11.0) 04/05/17 07:18 RBC 4.38 10^6/uL (3.5-6.1) 04/05/17 07:18 Hgb 13.6 gm/dL (14.0-18.0) L 04/05/17 07:18 Hct 39.9 % (42.0-52.0) L 04/05/17 07:18 MCV 91.1 fL (80.0-105.0) 04/05/17 07:18 MCH 31.1 pg (25.0-35.0) 04/05/17 07:18 MCHC 34.1 g/dl (31.0-37.0) 04/05/17 07:18 RDW 13.7 % (11.5-14.5) 04/05/17 07:18 Plt Count 148 10^3/uL (120.0-450.0) 04/05/17 07:18 MPV 9.7 fl (7.0-11.0) 04/05/17 07:18 Gran % 48.3 % (50.0-68.0) L 04/05/17 07:18 Lymph % (Auto) 36.0 % (22.0-35.0) H 04/05/17 07:18 [place] % (Auto) 11.9 % (1.0-6.0) H 04/05/17 07:18 Eos % (Auto) 3.6 % (1.5-5.0) 04/05/17 07:18 Baso % (Auto) 0.2 % (0.0-3.0) 04/05/17 07:18 Gran # 2.57 (1.4-6.5) 04/05/17 07:18 Lymph # 1.9 (1.2-3.4) 04/05/17 07:18 [place] # 0.6 (0.1-0.6) 04/05/17 07:18 Eos # 0.2 (0.0-0.7) 04/05/17 07:18 Baso # 0.01 K/mm3 (0.0-2.0) 04/05/17 07:18 Sodium 140 mmol/L (132-148) 04/05/17 07:18 Potassium 3.9 mmol/L (3.6-5.0) 04/05/17 07:18 Chloride 105 mmol/L (98-107) 04/05/17 07:18 Carbon Dioxide 25 mmol/L (21-33) 04/05/17 07:18 Anion Gap 14 (10-20) 04/05/17 07:18 BUN 18 mg/dL (7-21) 04/05/17 07:18 Creatinine 0.9 mg/dL (0.5-1.4) 04/05/17 07:18 Est GFR ( Amer) > 60 04/05/17 07:18 Est GFR (Non-Af Amer) > 60 04/05/17 07:18 Random Glucose 107 mg/dL (70-110) 04/05/17 07:18 Calcium 9.2 mg/dL (8.4-10.5) 04/05/17 07:18 Phosphorus 3.9 mg/dL (2.5-4.5) 04/05/17 07:18 Magnesium 1.9 mg/dL (1.7-2.2) 04/05/17 07:18 Total Bilirubin 0.6 mg/dL (0.2-1.3) 04/05/17 07:18 AST 20 U/L (15-59) 04/05/17 07:18 ALT 13 U/L (7-56) 04/05/17 07:18 Alkaline Phosphatase 25 U/L (38-133) L 04/05/17 07:18 Total Protein 6.6 g/dL (5.8-8.3) 04/05/17 07:18 Albumin 3.4 g/dL (3.0-4.8) 04/05/17 07:18 Globulin 3.2 gm/dL 04/05/17 07:18 Albumin/Globulin Ratio 1.1 (1.1-1.8) 04/05/17 07:18 Valproic Acid 20 ug/mL (50.0-100.0) L 04/04/17 21:25 Alcohol, Quantitative < 10 mg/dL (0-10) 04/04/17 21:25 Attending/Attestation - Attestation I have personally seen and examined this patient.: Yes I have fully participated in the care of the patient.: Yes I have reviewed all pertinent clinical information, including history, physical exam and plan: Yes Notes (Text): 04/05/17 21:24 Patient seen and examined at bedside. CTAB/L with normal S1S2 in intensity. AAOx3 with normal motor/sensory exam, - tremors. Vitals, labs, Imaging and orders reviewed. Compliance reinforced with the patient. Neurology consultation reviewed. Patient appears to be reluctant and unamenable to recommendations. Machine Setter Supervisor note reviewed and annotations made. Agree with the follow up plan as outlined.
[2017-04-05 17:51] VITALS: BP 130/94; PULSE 66; TEMP 99.3
== END 2017-04-05 20:11 | disposition home or self-care (01) ==
LOC: ED 21:17 → ERH 23:25 → 2RSO 04-05 04:24
PROVIDERS: ADMIT Internal Medicine; ATTEND Internal Medicine
DX: G40.909 Epilepsy, unspecified, not intractable, without status epilepticus (principal); Z79.899 Other long term (current) drug therapy; M25.511 Pain in right shoulder; Z91.81 History of falling; E73.9 Lactose intolerance, unspecified; Z87.891 Personal history of nicotine dependence
CPT/HCPCS: 36415; 70450; 71010; 73000; 73030; 80053; 80164; 80299; 80320; 83735; 84100; 85025; 93005; 99285; G0378

== ENCOUNTER 2017-05-14 10:51 | Emergency (ER) | payer MEDICAID ==
[2017-05-14 10:55] VITALS: BMI 27.4
--- NOTE | 2017-05-14 11:12 | ED PDOC ---
Arrival/HPI - General Historian: Patient - History of Present Illness Time/Duration: 1-3 hours Symptom Onset: Sudden Symptom Course: Unchanged <David Goldman - Last Filed: 05/14/17 12:58> <Dwight Mustafa Jr. - Last Filed: 05/14/17 14:45> - General Chief Complaint: Weakness/Neurological Deficit Time Seen by Provider: 05/14/17 10:57 - History of Present Illness Narrative History of Present Illness (Text): 05/14/17 11:05 Vasu Tracey is a 51 year old male, whose past medical history includes seizure disorder, who presents to the emergency department complaining of abdominal pain. Patient reports this morning when he was about to have breakfast, the pain began in his abdomen and radiated to his chest area. Patient reports having a seizure two days ago which was associated with blurry vision. States he 's compliant with his medication. Patient denies any headache, shortness of breath, vomiting, diarrhea, or other complaints. Contrary to triage he does not have blurry vision now. PMD: Dr. Shaikh (David Goldman) Associated Symptoms (Text): abdominal pain radiating to his chest area (David Goldman) Past Medical History - Provider Review Nursing Documentation Reviewed: Yes - Infectious Disease Hx of Infectious Diseases: None - Cardiac Hx Cardiac Disorders: No - Pulmonary Hx Respiratory Disorders: No - Neurological Hx Seizures: Yes - HEENT Hx HEENT Disorder: No - Renal Hx Renal Disorder: No - Endocrine/Metabolic Hx Endocrine Disorders: No - Hematological/Oncological Hx Blood Disorders: No - Integumentary Hx Dermatological Disorder: No - Musculoskeletal/Rheumatological Hx Musculoskeletal Disorders: No - Gastrointestinal Hx Gastrointestinal Disorders: No - Genitourinary/Gynecological Hx Genitourinary Disorders: No - Psychiatric Hx Psychophysiologic Disorder: No Hx Substance Use: No - Anesthesia Hx Anesthesia: No <David Goldman - Last Filed: 05/14/17 12:58> Family/Social History - Physician Review Nursing Documentation Reviewed: Yes Family/Social History: Unknown Family HX Smoking Status: Light Smoker < 10 Cigarettes Daily Hx Alcohol Use: Yes Hx Substance Use: No <David Goldman - Last Filed: 05/14/17 12:58> Allergies/Home Meds <David Goldman - Last Filed: 05/14/17 12:58> <Dwight Mustafa Jr. - Last Filed: 05/14/17 14:45> Allergies/Adverse Reactions: Allergies No Known Allergies Allergy (Verified 04/04/17 21:33) Home Medications: Home Meds Medication Instructions Recorded Confirmed Divalproex [Depakote ER] 500 mg PO TID 02/14/17 05/14/17 Lamotrigine [Lamictal] 150 mg PO BID 02/14/17 05/14/17 Review of Systems - Review of Systems Constitutional: absent: Fevers Respiratory: absent: SOB Cardiovascular: Chest Pain Gastrointestinal: Abdominal Pain. absent: Diarrhea, Vomiting Neurological: absent: Headache <David Goldman - Last Filed: 05/14/17 12:58> Physical Exam Vital Signs Reviewed: Yes Blood Pressure: Normal Pulse: Regular Respiratory Rate: Normal Appearance: Positive for: Well-Appearing, Non-Toxic, Comfortable Pain Distress: None Mental Status: Positive for: Alert and Oriented X 3 - Systems Exam Head: Present: Atraumatic, Normocephalic Pupils: Present: PERRL Extroacular Muscles: Present: EOMI Conjunctiva: Present: Normal Mouth: Present: Moist Mucous Membranes Neck: Present: Normal Range of Motion Respiratory/Chest: Present: Clear to Auscultation, Good Air Exchange. No: Respiratory Distress, Accessory Muscle Use Cardiovascular: Present: Regular Rate and Rhythm, Normal S1, S2. No: Murmurs Abdomen: Present: Tenderness (tenderness on the epigastric region ), Normal Bowel Sounds. No: Distention, Peritoneal Signs, Guarding Upper Extremity: Present: Normal Inspection. No: Cyanosis, Edema Lower Extremity: Present: Normal Inspection. No: Edema Neurological: Present: GCS=15, CN II-XII Intact, Speech Normal Skin: Present: Warm, Dry, Normal Color. No: Rashes Psychiatric: Present: Alert, Oriented x 3, Normal Insight, Normal Concentration <David Goldman - Last Filed: 05/14/17 12:58> Medical Decision Making - Lab Interpretations I have reviewed the lab results: Yes - EKG Interpretation Interpreted by ED Physician: Yes Type: 12 lead EKG <David Goldman - Last Filed: 05/14/17 12:58> <Dwight Mustafa Jr. - Last Filed: 05/14/17 14:45> ED Course and Treatment: 05/14/17 Impression: 51 year old male with tenderness on epigastric region. No guarding. Differential Diagnosis included but are not limited to: r/o gastritis vs. pancreatitis Plan: -- EKG -- Labs -- Pepcid and Zofran -- Reassess and disposition Progress Notes: EKG: Ordered, reviewed, and independently interpreted the EKG. Rate : 55 BPM Rhythm : sinus bradycardia Interpretation : No ST-segment elevations or depressions, no T-wave inversions, normal intervals. 05/14/17 12:45 Patient is feeling much better after medication. Will continue to monitor. 05/14/17 12:58 Patient is now saying his left chest wall hurts when he touches it. This has been constant since he fell on his chest several days ago. Abdominal pain resolved. (David Goldman) 05/14/17 14:31 Patient feels better. EKG unremarkable, CXR normal. Ice pack to chest helped his chest wall pain. Will d/c home. (Dwight Mustafa Jr.) - Lab Interpretations Lab Results: 05/14/17 11:28 05/14/17 11:28 Lab Results 05/14/17 13:20: Valproic Acid 91 05/14/17 11:28: Sodium 140, Potassium 3.7, Chloride 105, Carbon Dioxide 28, Anion Gap 11, BUN 15, Creatinine 0.9, Est GFR ( Amer) > 60, Est GFR (Non- Af Amer) > 60, Random Glucose 88, Calcium 9.0, Total Bilirubin 0.6, AST 19, ALT 22, Alkaline Phosphatase 24 L, Total Protein 6.6, Albumin 3.6, Globulin 3.0, Albumin/Globulin Ratio 1.2 05/14/17 11:28: WBC 2.9 L* D, RBC 4.38, Hgb 13.8 L, Hct 40.5 L, MCV 92.5, MCH 31.5, MCHC 34.1, RDW 13.7, Plt Count 141, MPV 9.7, Gran % 37.3 L, Lymph % (Auto ) 46.2 H, [place] % (Auto) 13.1 H, Eos % (Auto) 3.1, Baso % (Auto) 0.3, Gran # 1.08 L, Lymph # 1.3, Stewart # 0.4, Eos # 0.1, Baso # 0.01 - RAD Interpretation Radiology Orders: 05/14/17 12:58 CXR [CHEST PORTABLE] [RAD] Stat - Medication Orders Current Medication Orders: Discontinued Medications Famotidine (Pepcid 20mg/50ml Premix) 20 mg in 50 mls @ 100 mls/hr IVPB STAT STA Stop: 05/14/17 11:49 Last Admin: 05/14/17 11:34 Dose: 100 mls/hr Sodium Chloride (Sodium Chloride 0.9%) 1,000 mls @ 999 mls/hr IV .Q1H1M STA Stop: 05/14/17 13:23 Last Admin: 05/14/17 12:42 Dose: 999 mls/hr Ondansetron HCl (Zofran Inj) 4 mg IVP STAT STA Stop: 05/14/17 11:17 Last Admin: 05/14/17 11:34 Dose: 4 mg - Scribe Statement The provider has reviewed the documentation as recorded by the Scribe <David Goldman - Last Filed: 05/14/17 12:58> <Dwight Mustafa Jr. - Last Filed: 05/14/17 14:45> - Scribe Statement Antonia Miller Provider Scribe Attestation: All medical record entries made by the Scribe were at my direction and personally dictated by me. I have reviewed the chart and agree that the record accurately reflects my personal performance of the history, physical exam, medical decision making, and the department course for this patient. I have also personally directed, reviewed, and agree with the discharge instructions and disposition. (David Goldman) Disposition/Present on Arrival - Present on Arrival Any Indicators Present on Arrival: No History of DVT/PE: No History of Uncontrolled Diabetes: No Urinary Catheter: No History of Decub. Ulcer: No History Surgical Site Infection Following: None - Disposition Have Diagnosis and Disposition been Completed?: Yes <David Goldman - Last Filed: 05/14/17 12:58> - Present on Arrival Any Indicators Present on Arrival: No - Disposition Have Diagnosis and Disposition been Completed?: Yes Disposition Time: 14:35 Patient Plan: Discharge <Dwight Mustafa Jr. - Last Filed: 05/14/17 14:45> - Disposition Diagnosis: Abdominal pain, Chest wall pain Disposition: HOME/ ROUTINE Patient Problems: Current Active Problems Problem Status Onset Abdominal pain Acute Chest wall pain Acute Condition: IMPROVED Discharge Instructions (ExitCare): Chest Pain (ED) Print Language: MALDIVIAN Additional Instructions: Mr. Tracey, thank you for letting us take care of you today. Return to the ER if your symptoms worsen, or if any problems. Take the medication listed below as prescribed. Follow up with your doctor next week for a re-evaluation. Prescriptions: Ranitidine HCl [Zantac] 1 tab PO BID #60 tablet Referrals: FAMILY PROVIDER,NO [Primary Care Provider] - Follow up with primary Forms: [employer] ([place])
[2017-05-14] MEDS ORDERED: Famotidine 20mg/50ml 50 ML IVPB STA (11:16)
[2017-05-14] MEDS ORDERED: Famotidine 20mg/50ml 20 MG/50 ML BAG IVPB STA (11:20)
[2017-05-14 11:34] LABS: BASO # 0.01 K/mm3 (0.0-2.0); BASO % 0.3 % (0.0-3.0); EOS # 0.1 (0.0-0.7); EOS % 3.1 % (1.5-5.0); GRAN # 1.08 (1.4-6.5); GRAN % 37.3 % (50.0-68.0); HEMATOCRIT 40.5 % (42.0-52.0); LYMPH # 1.3 (1.2-3.4); LYMPH % 46.2 % (22.0-35.0); MEAN CELL VOLUME 92.5 fl (80.0-105.0); MEAN CORPUSCULAR HEMOGLOBIN 31.5 pg (25.0-35.0); MEAN CORPUSCULAR HGB CONC 34.1 g/dl (31.0-37.0); MEAN PLATELET VOLUME 9.7 fl (7.0-11.0); MONO # 0.4 (0.1-0.6); MONO % 13.1 % (1.0-6.0); RED CELL DISTRIBUTION WIDTH 13.7 % (11.5-14.5)
[2017-05-14 11:43] LABS: WHITE BLOOD COUNT 2.9 10^3/ul (4.5-11.0)
[2017-05-14 11:47] LABS: ALB/GLOB RATIO 1.2 (1.1-1.8); ALKALINE PHOSPHATASE 24 U/L (38-126); ALT/SGPT 22 U/L (7-56); AST/SGOT 19 U/L (17-59); BILIRUBIN,TOTAL 0.6 mg/dL (0.2-1.3); BLOOD UREA NITROGEN 15 mg/dL (7-21); CARBON DIOXIDE 28 mmol/L (21-33); CHLORIDE 105 mmol/L (98-107); GFR AFRICAN-AMERICAN > 60; GLUCOSE,RANDOM 88 mg/dL (70-110); POTASSIUM 3.7 mmol/L (3.6-5.0); SODIUM 140 mmol/L (132-148); TOTAL PROTEIN 6.6 g/dL (5.8-8.3)
[2017-05-14] MEDS ORDERED: Sodium Chloride 0.9% 1,000 ML IV STA (12:23)
--- NOTE | 2017-05-14 13:18 | RAD ---
HISTORY: left chest wall tenderness COMPARISON: 04/05/2017 FINDINGS: LUNGS: No active pulmonary disease. PLEURA: No significant pleural effusion identified, no pneumothorax apparent. CARDIOVASCULAR: Normal. OSSEOUS STRUCTURES: No significant abnormalities. Few tiny accessory ossification centers is tiny loose bodies border the superior glenoid rim. VISUALIZED UPPER ABDOMEN: Normal. OTHER FINDINGS: None. IMPRESSION: No active disease. No interval pathology noted
--- NOTE | 2017-05-14 13:21 | CARD ---
APPROVED REPORT EKG Measurement Heart [id number] <Conclusion> Sinus bradycardia Otherwise normal ECG
[2017-05-14 14:55] VITALS: BP 130/82; PULSE 58; RESP 17; TEMP 98.2; O2SAT 96
== END 2017-05-14 14:55 | disposition home or self-care (01) ==
LOC: ED 10:51
DX: R10.9 Unspecified abdominal pain (principal); R07.89 Other chest pain
CPT/HCPCS: 71010; 80053; 80164; 82948; 85025; 93005; 96361; 96365; 96375; 99285; J2405; J7040

== ENCOUNTER 2017-10-01 21:46 | Emergency (ER) | payer MEDICAID ==
[2017-10-01 21:46] VITALS: BMI 27.4
[2017-10-01 22:00] VITALS: BP 127/83; PULSE 92; RESP 18; TEMP 98.1; O2SAT 100
--- NOTE | 2017-10-01 22:09 | ED PDOC ---
Arrival/HPI - General Historian: Patient - General Chief Complaint: Seizure Time Seen by Provider: 10/01/17 21:52 - History of Present Illness Narrative History of Present Illness (Text): CC: seizure 10/01/17 21:55 52M Hx chronic seizures, ED visits for seizures, brought in for having a seizure after a meeting. He called his friend who called the ambulance and decided to go to [facility] for checkup. He denied LOC, denied hitting his head, denied incontinence of bowels and urination. Patient denied feeling drowsy after the seizure. Social history: former alcohol abuser (Ivonne Schmid) Past Medical History - Provider Review Nursing Documentation Reviewed: Yes - Infectious Disease Hx of Infectious Diseases: None - Cardiac Hx Cardiac Disorders: No - Pulmonary Hx Respiratory Disorders: No - Neurological Hx Seizures: Yes - HEENT Hx HEENT Disorder: No - Renal Hx Renal Disorder: No - Endocrine/Metabolic Hx Endocrine Disorders: No - Hematological/Oncological Hx Blood Disorders: No - Integumentary Hx Dermatological Disorder: No - Musculoskeletal/Rheumatological Hx Musculoskeletal Disorders: No - Gastrointestinal Hx Gastrointestinal Disorders: No - Genitourinary/Gynecological Hx Genitourinary Disorders: No - Psychiatric Hx Substance Use: No - Anesthesia Hx Anesthesia: No Hx Anesthesia Reactions: No Hx Malignant Hyperthermia: No Family/Social History - Physician Review Nursing Documentation Reviewed: Yes Family/Social History: Unknown Family HX Smoking Status: Light Smoker < 10 Cigarettes Daily Hx Alcohol Use: No Hx Substance Use: No Allergies/Home Meds Allergies/Adverse Reactions: Allergies seafood Allergy (Uncoded 10/01/17 22:03) unknown Home Medications: Home Meds Medication Instructions Recorded Confirmed Lamotrigine [Lamictal] 150 mg PO BID 02/14/17 07/11/17 levETIRAcetam [Keppra] 250 mg PO TID 07/09/17 07/11/17 Review of Systems - Physician Review All systems were reviewed & negative as marked: Yes Physical Exam Vital Signs Reviewed: Yes Temperature: Afebrile Blood Pressure: Normal Pulse: Regular Respiratory Rate: Normal Appearance: Positive for: Well-Appearing, Comfortable - Systems Exam Head: Present: Atraumatic, Normocephalic Pupils: Present: PERRL Extroacular Muscles: Present: EOMI Conjunctiva: Present: Normal Mouth: Present: Moist Mucous Membranes Nose (External): Present: Atraumatic. No: Abrasion, Contusion Neck: Present: Normal Range of Motion, Trachea Midline. No: MIDLINE TENDERNESS , JVD, Lymphadenopathy Respiratory/Chest: Present: Clear to Auscultation, Good Air Exchange. No: Respiratory Distress Cardiovascular: Present: Regular Rate and Rhythm, Normal S1, S2. No: Murmurs, Tachycardic, Bradycardic Abdomen: Present: Normal Bowel Sounds. No: Tenderness, Distention, Peritoneal Signs Upper Extremity: Present: Normal Inspection, Normal ROM, NORMAL PULSES, Capillary Refill < 2s. No: Edema Lower Extremity: Present: Normal Inspection, NORMAL PULSES, Normal ROM, Capillary Refill < 2 s. No: Edema Neurological: Present: GCS=15, CN II-XII Intact, Speech Normal, Motor Func Grossly Intact (patient has slight tremors of hands when arms are extended), Normal Sensory Function, Normal Cerebellar Funct Skin: Present: Warm, Dry, Normal Color. No: Rashes Psychiatric: Present: Alert, Oriented x 3, Normal Insight, Normal Concentration Vital Signs Temp Pulse Resp BP Pulse Ox 10/01/17 21:59 98.1 F 92 H 18 127/83 100 10/01/17 21:52 91 H 18 127/83 97 Medical Decision Making Re-evaluation Time: 22:15 Reassessment Condition: Re-examined, Unchanged ED Course and Treatment: 10/01/17 22:12 spoke with patient to reassure patient. patient reached out to sister to let her know of his whereabouts (Ivonne Schmid) Seen and examined with resident. 52 y/o M c PMHx seizure disorder p/w seizure. Denies pain, fever, dyspnea, vomiting, dysuria. States is compliant with medication and states will see neurologist tomorrow morning. Will discharge, instructed to return to ED immediately for any vomiting, dyspnea, fever, pain, or any other problem. (Feliz Rush) Disposition/Present on Arrival - Present on Arrival Any Indicators Present on Arrival: No History of DVT/PE: No History of Uncontrolled Diabetes: No Urinary Catheter: No History Surgical Site Infection Following: None - Disposition Have Diagnosis and Disposition been Completed?: Yes Disposition Time: 22:16 Patient Plan: Discharge - Disposition Diagnosis: Seizure disorder Disposition: HOME/ ROUTINE Patient Problems: Current Active Problems Problem Status Onset Seizure disorder Acute Condition: STABLE Additional Instructions: follow up with neurologist if seizures continue to occur for study follow up with primary care doctor return to Emergency room if seizures with loss of consciousness, incontinence Referrals: Wilmer ABDULLAHI,Juan Carlos [Primary Care Provider] - Follow up with primary Forms: [employer] ([place])
== END 2017-10-01 22:30 | disposition home or self-care (01) ==
LOC: ED 21:46
DX: G40.909 Epilepsy, unspecified, not intractable, without status epilepticus (principal)

== ENCOUNTER 2017-11-05 14:39 | Observation (INO) | payer MEDICAID ==
--- NOTE | 2017-11-05 15:10 | ED PDOC ---
Arrival/HPI - General Time Seen by Provider: 11/05/17 14:40 Historian: Patient - History of Present Illness Narrative History of Present Illness (Text): 11/05/17 15:00 A 52 year old male, whose past medical history includes seizure disorder on Depakote and Lamictal TID, brought into the emergency department by EMS for witnessed seizure. Patient reports he had a seizure while walking with his friend outside prior to arrival. Patient is unsure what time or how long the seizure lasted. Patient notes mild back pain but denies any injuries, head trauma, headache, dizziness, neck pain, fever, chills, tongue bitting, nausea, vomiting, diarrhea, abdominal pain, urinary or bowel incontinence, chest pain, shortness of breath or any other complaints. Patient reports he is compliant with his medications daily. He states he has seizures once a month but lately he has been experiencing frequent seizures. He notes he had 4 seizures last week ; One on Friday, Friday, Friday and Friday. Time/Duration: Prior to Arrival Context: Walking Past Medical History - Provider Review Nursing Documentation Reviewed: Yes - Infectious Disease Hx of Infectious Diseases: None - Cardiac Hx Cardiac Disorders: No - Pulmonary Hx Respiratory Disorders: No - Neurological Hx Seizures: Yes - HEENT Hx HEENT Disorder: No - Renal Hx Renal Disorder: No - Endocrine/Metabolic Hx Endocrine Disorders: No - Hematological/Oncological Hx Blood Disorders: No - Integumentary Hx Dermatological Disorder: No - Musculoskeletal/Rheumatological Hx Musculoskeletal Disorders: No - Gastrointestinal Hx Gastrointestinal Disorders: No - Genitourinary/Gynecological Hx Genitourinary Disorders: No - Psychiatric Hx Substance Use: No - Anesthesia Hx Anesthesia: No Hx Anesthesia Reactions: No Hx Malignant Hyperthermia: No Family/Social History - Physician Review Nursing Documentation Reviewed: Yes Family/Social History: No Known Family HX Smoking Status: Light Smoker < 10 Cigarettes Daily Hx Alcohol Use: No Hx Substance Use: No Allergies/Home Meds Allergies/Adverse Reactions: Allergies seafood Allergy (Uncoded 10/01/17 22:03) unknown Home Medications: Home Meds Medication Instructions Recorded Confirmed Lamotrigine [Lamictal] 150 mg PO BID 02/14/17 11/05/17 levETIRAcetam [Keppra] 250 mg PO TID 07/09/17 11/05/17 Review of Systems - Physician Review All systems were reviewed & negative as marked: Yes - Review of Systems Constitutional: absent: Fevers, Night Sweats ENT: absent: Other (Tongue biting) Respiratory: absent: SOB Cardiovascular: absent: Chest Pain Gastrointestinal: absent: Abdominal Pain, Diarrhea, Nausea, Vomiting Genitourinary Male: absent: Other (Urinary/Bowel incontinence) Musculoskeletal: Back Pain. absent: Neck Pain Neurological: Seizure. absent: Headache, Dizziness Physical Exam Vital Signs Reviewed: Yes Vital Signs Temp Pulse Resp BP Pulse Ox 11/05/17 16:07 62 18 128/80 98 11/05/17 14:56 98.3 F 78 17 120/74 97 Temperature: Afebrile Blood Pressure: Normal Pulse: Regular Respiratory Rate: Normal Appearance: Positive for: Well-Appearing, Non-Toxic, Comfortable Pain Distress: None Mental Status: Positive for: Alert and Oriented X 3 - Systems Exam Head: Present: Atraumatic, Normocephalic Pupils: Present: PERRL Extroacular Muscles: Present: EOMI Conjunctiva: Present: Normal Mouth: Present: Moist Mucous Membranes Neck: Present: Normal Range of Motion Respiratory/Chest: Present: Clear to Auscultation, Good Air Exchange. No: Respiratory Distress, Accessory Muscle Use Cardiovascular: Present: Regular Rate and Rhythm, Normal S1, S2. No: Murmurs Abdomen: Present: Normal Bowel Sounds. No: Tenderness, Distention, Peritoneal Signs Back: Present: Normal Inspection Upper Extremity: Present: Normal Inspection. No: Cyanosis, Edema Lower Extremity: Present: Normal Inspection. No: Edema Neurological: Present: GCS=15, CN II-XII Intact, Speech Normal Skin: Present: Warm, Dry, Normal Color. No: Rashes Psychiatric: Present: Alert, Oriented x 3, Normal Insight, Normal Concentration Medical Decision Making ED Course and Treatment: 11/05/17 15:00 Impression: A 52 year old male brought in for witnessed seizure. Patient notes mild back pain but denies any other complaints. Differential Diagnosis included but are not limited to: Seizure Plan: -- Head CT -- Thoracic spine xray -- Lumbar spine xray -- EKG -- Labs -- Reassess and disposition Progress Notes: EKG shows NSR at [address]-segment elevations, normal intervals, normal axis. Interpreted by me. Report Date : 11/05/2017 16:51:34 PROCEDURE: CT HEAD WITHOUT CONTRAST. Dictator : Dwight Scott MD IMPRESSION: Normal CT of the Head. No intracranial mass, hemorrhage or evidence of acute infarct. No interval change. Report Date : 11/05/2017 17:47:03 Procedure: Radiographs of the Thoracic Spine. Dictator : Amberly Meza MD IMPRESSION: No acute fracture. Mild multilevel degenerative disc disease. Report Date : 11/05/2017 17:47:59 PROCEDURE: Radiographs of the Lumbar Spine. Dictator : Amberly Meza MD IMPRESSION: No acute fracture. 11/05/17 18:13 Patient had no seizures while in the ED. He reported an increased frequency of seizures lately despite being complaint with his medications. He is only taking Depakote TID and Lamictal BID. He is not taking Keppra. Discussed case with Dr. Michelle who agrees to admitting patient for treatment of seizures due to increased frequency. She recommended loading him with Depakote 1000mg dose now and the BID. She also recommended Lamictal 150 BID but she will tweak him off of that. 11/05/17 18:[address] Downs who will accept the patient on to the hospitalist service. - Lab Interpretations Lab Results: 11/05/17 16:10 11/05/17 16:10 Lab Results 11/05/17 16:10: Valproic Acid 46 L 11/05/17 16:10: Alcohol, Quantitative < 10 11/05/17 16:10: Sodium 141, Potassium 4.1, Chloride 106, Carbon Dioxide 28, Anion Gap 12, BUN 18, Creatinine 0.8, Est GFR ( Amer) > 60, Est GFR (Non- Af Amer) > 60, Random Glucose 86, Calcium 9.4, Total Bilirubin 0.4, AST 37, ALT 33, Alkaline Phosphatase 28 L, Total Protein 7.0, Albumin 3.7, Globulin 3.3, Albumin/Globulin Ratio 1.1 11/05/17 16:10: WBC 3.8 L D, RBC 4.57, Hgb 14.1, Hct 42.2, MCV 92.3, MCH 30.9, MCHC 33.4, RDW 14.1, Plt Count 157, MPV 10.1, Gran % 62.4, Lymph % (Auto) 13.1 L , [place] % (Auto) 22.4 H, Eos % (Auto) 1.6, Baso % (Auto) 0.5, Gran # 2.34, Lymph # (Auto) 0.5 L, [place] # (Auto) 0.8 H, Eos # (Auto) 0.1, Baso # (Auto) 0.02, Neutrophils % (Manual) 71 H, Lymphocytes % (Manual) 11 L, Monocytes % (Manual) 17 H, Eosinophils % (Manual) 1, Platelet Evaluation Normal - RAD Interpretation Radiology Orders: 11/05/17 15:10 HEAD W/O CONTRAST [CT] Stat 11/05/17 15:14 DORSAL (THORACIC) SPINE [RAD] Stat LS SPINE WITH OBL > 18 YRS OLD [RAD] Stat - Medication Orders Current Medication Orders: Divalproex Sodium (Depakote Dr(*Bid*)) 1,000 mg PO STAT STA Stop: 11/05/17 18:09 Lamotrigine (Lamictal) 150 mg PO STAT STA PRN Reason: Protocol Stop: 11/05/17 18:12 - Scribe Statement The provider has reviewed the documentation as recorded by the Shane Lainez Provider Scribe Attestation: All medical record entries made by the Scribe were at my direction and personally dictated by me. I have reviewed the chart and agree that the record accurately reflects my personal performance of the history, physical exam, medical decision making, and the department course for this patient. I have also personally directed, reviewed, and agree with the discharge instructions and disposition. Disposition/Present on Arrival - Present on Arrival Any Indicators Present on Arrival: No History of DVT/PE: No History of Uncontrolled Diabetes: No Urinary Catheter: No History Surgical Site Infection Following: None - Disposition Have Diagnosis and Disposition been Completed?: Yes Diagnosis: Seizure Disposition: HOSPITALIZED Disposition Time: 18:16 Patient Plan: Observation Condition: FAIR
[2017-11-05 16:25] LABS: BASO # 0.02 K/mm3 (0.0-2.0); BASO % 0.5 % (0.0-3.0); EOS # 0.1 (0.0-0.7); EOS % 1.6 % (1.5-5.0); GRAN # 2.34 (1.4-6.5); GRAN % 62.4 % (50.0-68.0); HEMOGLOBIN 14.1 g/dL (14.0-18.0); LYMPH # 0.5 (1.2-3.4); LYMPH % 13.1 % (22.0-35.0); MEAN CELL VOLUME 92.3 fl (80.0-105.0); MEAN CORPUSCULAR HEMOGLOBIN 30.9 pg (25.0-35.0); MEAN CORPUSCULAR HGB CONC 33.4 g/dl (31.0-37.0); MEAN PLATELET VOLUME 10.1 fl (7.0-11.0); MONO # 0.8 (0.1-0.6); MONO % 22.4 % (1.0-6.0); PLATELET COUNT 157 10^3/uL (120.0-450.0); RBC 4.57 10^6/uL (3.5-6.1); RED CELL DISTRIBUTION WIDTH 14.1 % (11.5-14.5); WHITE BLOOD COUNT 3.8 10^3/ul (4.5-11.0)
[2017-11-05 16:36] LABS: ALB/GLOB RATIO 1.1 (1.1-1.8); ALBUMIN 3.7 g/dL (3.0-4.8); ALT/SGPT 33 U/L (7-56); AST/SGOT 37 U/L (17-59); BLOOD UREA NITROGEN 18 mg/dL (7-21); CALCIUM 9.4 mg/dL (8.4-10.5); GFR AFRICAN-AMERICAN > 60; GFR NON-AFRICAN AMERICAN > 60
--- NOTE | 2017-11-05 16:53 | CT ---
PROCEDURE: CT HEAD WITHOUT CONTRAST. HISTORY: seizure COMPARISON: 04/05/2017 TECHNIQUE: Axial computed tomography images were obtained through the head/brain without intravenous contrast. Radiation dose: Total exam DLP = 892.95 mGy-cm. This CT exam was performed using one or more of the following dose reduction techniques: Automated exposure control, adjustment of the mA and/or kV according to patient size, and/or use of iterative reconstruction technique. FINDINGS: HEMORRHAGE: No intracranial hemorrhage. BRAIN: No mass effect or edema. No atrophy or chronic microvascular ischemic changes. VENTRICLES: Unremarkable. No hydrocephalus. CALVARIUM: Unremarkable. PARANASAL SINUSES: Unremarkable as visualized. No significant inflammatory changes. MASTOID AIR CELLS: Unremarkable as visualized. No inflammatory changes. OTHER FINDINGS: None. IMPRESSION: Normal CT of the Head. No intracranial mass, hemorrhage or evidence of acute infarct. No interval change.
[2017-11-05 17:09] LABS: EOSINOPHIL 1 % (0.0-3.0); LYMPHOCYTE 11 % (22.0-35.0); MONOCYTE 17 % (1.0-6.0); NEUTROPHIL 71 % (50.0-70.0); PLATELET ESTIMATE NORMAL (NORMAL)
--- NOTE | 2017-11-05 17:48 | RAD ---
HISTORY: Fall r/o fx COMPARISON: No prior. FINDINGS: BONES: There is normal alignment of the thoracic vertebral bodies. There is normal thoracic kyphosis. There is mild bone demineralization. No acute fracture or bone destruction. DISC SPACES: There is mild multilevel degenerative disc disease with anterior spurring and mild reduced disc heights. SOFT TISSUES: Normal. OTHER FINDINGS: None. IMPRESSION: No acute fracture. Mild multilevel degenerative disc disease.
--- NOTE | 2017-11-05 17:49 | RAD ---
PROCEDURE: Radiographs of the Lumbar Spine. HISTORY: fall r/o fx COMPARISON: No prior. FINDINGS: BONES: There is normal alignment of the lumbar vertebral bodies. There is normal lumbar lordosis. There is no acute fracture, spondylolysis or spondylolisthesis. There is diffuse bone demineralization. DISC SPACES: There is multilevel degenerative disc disease with anterior osteophytes, reduced disc heights and multilevel facet arthropathy, worse at L5-S1. OTHER FINDINGS: None. IMPRESSION: No acute fracture.
[2017-11-05] MEDS ORDERED: Divalproex 250 mg DR (BID formulation) PO STA (17:59)
[2017-11-05] MEDS ORDERED: Divalproex 500 mg DR(BID formulation) PO STA (18:08)
[2017-11-05 18:14] LABS: BARBITURATES, UR NEGATIVE (NEGATIVE)
[2017-11-05 18:16] LABS: BENZODIAZEPINES, UR NEGATIVE (NEGATIVE); OPIATES, UR NEGATIVE (NEGATIVE); PHENCYCLIDINE, UR NEGATIVE (NEGATIVE)
--- NOTE | 2017-11-05 19:03 | CP.PCM.HP ---
<Eddi Garcia - Last Filed: 11/05/17 18:53> History of Present Illness - History of Present Illness History of Present Illness: 52 year old male with past medical history of seizure disorder since childhood presents to the hospital after an unwitnessed seizure while on his way to a meeting. Patient states he was walking alone when he had a seizure suddenly. He denies any tongue biting, urinary/bladder incontinence, or post-ictal period, however he does not know how long the seizure lasted. He does report that he is complaint with his medications. Patient has had 4 seizures within the past week. He does not follow with a neurologist outpatient, just his PMD, Dr. Lauren. He has been to the hospital several times in the past for similar seizure episodes. Patient does appear to have increased level of stress with his sister. Denies chest pain, shortness of breath, nausea, vomiting, diarrhea, fever, chills, changes in vision. PMD: Dr. Lauren Medical history: Seizure disorder Surgical History: None Family History: Noncontributory Social History: Former alcohol and illicit drug use Medications: Reviewed, as per MAR Allergies: NKDA Present on Admission - Present on Admission Any Indicators Present on Admission: No Review of Systems - Review of Systems Review of Systems: 12 point ROS as per HPI, otherwise negative. Past Patient History - Infectious Disease Hx of Infectious Diseases: None - Past Social History Smoking Status: Light Smoker < 10 Cigarettes Daily - CARDIAC Hx Cardiac Disorders: No - PULMONARY Hx Respiratory Disorders: No - NEUROLOGICAL Hx Seizures: Yes - HEENT Hx HEENT Problems: No - RENAL Hx Chronic Kidney Disease: No - ENDOCRINE/METABOLIC Hx Endocrine Disorders: No - HEMATOLOGICAL/ONCOLOGICAL Hx Blood Disorders: No - INTEGUMENTARY Hx Dermatological Problems: No - MUSCULOSKELETAL/RHEUMATOLOGICAL Hx Musculoskeletal Disorders: No - GASTROINTESTINAL Hx Gastrointestinal Disorders: No - GENITOURINARY/GYNECOLOGICAL Hx Genitourinary Disorders: No - PSYCHIATRIC Hx Substance Use: No - SURGICAL HISTORY Hx Surgeries: No - ANESTHESIA Hx Anesthesia: No Hx Anesthesia Reactions: No Hx Malignant Hyperthermia: No Meds Allergies/Adverse Reactions: Allergies Allergy/AdvReac Type Severity Reaction Status Date / Time seafood Allergy unknown Uncoded 11/05/17 23:12 Physical Exam - Constitutional Appears: Non-toxic, No Acute Distress - Head Exam Head Exam: ATRAUMATIC, NORMAL INSPECTION, NORMOCEPHALIC - Eye Exam Eye Exam: EOMI, Normal appearance - ENT Exam ENT Exam: Mucous Membranes Moist, Normal Exam - Neck Exam Neck exam: Positive for: Normal Inspection. Negative for: Lymphadenopathy - Respiratory Exam Respiratory Exam: Clear to Auscultation Bilateral, NORMAL BREATHING PATTERN. absent: Rales, Rhonchi, Wheezes - Cardiovascular Exam Cardiovascular Exam: RRR, +S1, +S2 - GI/Abdominal Exam GI & Abdominal Exam: Normal Bowel Sounds, Soft. absent: Tenderness - Extremities Exam Extremities exam: Positive for: normal inspection. Negative for: calf tenderness, pedal edema - Neurological Exam Neurological exam: Alert, CN II-XII Intact, Oriented x3 Additional comments: No motor or sensory deficits - Psychiatric Exam Psychiatric exam: Agitated - Skin Skin Exam: Dry, Intact, Normal Color Results - Vital Signs Recent Vital Signs: Last Vital Signs Temp 98 F 11/05/17 18:23 Pulse 76 11/05/17 18:23 Resp 19 11/05/17 18:23 BP 116/75 11/05/17 18:23 Pulse Ox 100 11/05/17 18:23 - Labs Result Diagrams: 11/05/17 16:10 11/05/17 16:10 Labs: Laboratory Results - last 24 hr 11/05/17 11/05/17 11/05/17 16:10 16:10 16:10 WBC 3.8 L D RBC 4.57 Hgb 14.1 Hct 42.2 MCV 92.3 MCH 30.9 MCHC 33.4 RDW 14.1 Plt Count 157 MPV 10.1 Gran % 62.4 Lymph % (Auto) 13.1 L [place] % (Auto) 22.4 H Eos % (Auto) 1.6 Baso % (Auto) 0.5 Gran # 2.34 Lymph # (Auto) 0.5 L [place] # (Auto) 0.8 H Eos # (Auto) 0.1 Baso # (Auto) 0.02 Neutrophils % (Manual) 71 H Lymphocytes % (Manual) 11 L Monocytes % (Manual) 17 H Eosinophils % (Manual) 1 Platelet Evaluation Normal Sodium 141 Potassium 4.1 Chloride 106 Carbon Dioxide 28 Anion Gap 12 BUN 18 Creatinine 0.8 Est GFR ( Amer) > 60 Est GFR (Non-Af Amer) > 60 POC Glucose (mg/dL) Random Glucose 86 Calcium 9.4 Total Bilirubin 0.4 AST 37 ALT 33 Alkaline Phosphatase 28 L Total Protein 7.0 Albumin 3.7 Globulin 3.3 Albumin/Globulin Ratio 1.1 Urine Opiates Screen Urine Methadone Screen Ur Barbiturates Screen Valproic Acid Ur Phencyclidine Scrn Ur Amphetamines Screen U Benzodiazepines Scrn U Oth Cocaine Metabols U Cannabinoids Screen Alcohol, Quantitative < 10 11/05/17 11/05/17 11/05/17 16:10 17:25 18:27 WBC RBC Hgb Hct MCV MCH MCHC RDW Plt Count MPV Gran % Lymph % (Auto) [place] % (Auto) Eos % (Auto) Baso % (Auto) Gran # Lymph # (Auto) [place] # (Auto) Eos # (Auto) Baso # (Auto) Neutrophils % (Manual) Lymphocytes % (Manual) Monocytes % (Manual) Eosinophils % (Manual) Platelet Evaluation Sodium Potassium Chloride Carbon Dioxide Anion Gap BUN Creatinine Est GFR ( Amer) Est GFR (Non-Af Amer) POC Glucose (mg/dL) 107 Random Glucose Calcium Total Bilirubin AST ALT Alkaline Phosphatase Total Protein Albumin Globulin Albumin/Globulin Ratio Urine Opiates Screen Negative Urine Methadone Screen Negative Ur Barbiturates Screen Negative Valproic Acid 46 L Ur Phencyclidine Scrn Negative Ur Amphetamines Screen Negative U Benzodiazepines Scrn Negative U Oth Cocaine Metabols Negative U Cannabinoids Screen Negative Alcohol, Quantitative Assessment & Plan - Assessment and Plan (Free Text) Plan: 52 year old male with past medical history of seizure disorder presents with breakthrough seizures. Patient states he is compliant with medications, will obtain serum medication levels. We will also obtain a Psychiatry and Neurology consult. Patient also appears to have component of anxiety. Patient will be restarted on home medications at this time. Will continue to monitor for signs of seizure. 1. Seizure disorder Serum medication levels ordered Ativan prn for seizures Restart home meds Neurology consult, Dr. Michelle 2. Anxiety Psychiatry consult 3. Prophylaxis Zofran Protonix Heparin Radha, PGY-2 <Scot Downs - Last Filed: 11/06/17 07:44> Results - Vital Signs Recent Vital Signs: Last Vital Signs Temp 98.7 F 11/06/17 06:00 Pulse 54 L 11/06/17 06:00 Resp 20 11/06/17 06:00 BP 121/78 11/06/17 06:00 Pulse Ox 97 11/06/17 06:00 - Labs Result Diagrams: 11/05/17 16:10 11/05/17 16:10 Labs: Laboratory Results - last 24 hr 11/05/17 18:27 POC Glucose (mg/dL) 107 Attending/Attestation - Attestation I have personally seen and examined this patient.: Yes I have fully participated in the care of the patient.: Yes I have reviewed all pertinent clinical information: Yes Notes (Text): 11/06/17 07:38 Attending note; Patient seen and examined with resident in ER. Patient is a 52-year-old male with a history of seizure disorder was admitted for and witnessed her current seizures. Patient is a poor historian. Complaints of the medication is in question. Case discussed with patient's sister in detail. Patient usually takes this morning medication. But she is not sure about medication compliance. Patient's sisters also raises the concern about possible diagnosis of anxiety. Patient is currently not under any psychiatric care. CT head is negative. X-rays negative. No focal neurological deficit. Neurology/psychiatric evaluation requested. Patient states that he usually follows up with neurologist . Medication compliance insisted in great detail. On discharge the patient will follow-up with neurologist DR. Shaikh.
[2017-11-06 00:04] VITALS: BMI 27.0
[2017-11-06] MEDS ORDERED: Pneumococcal 23-Valent Vaccine IM ONE (00:04)
[2017-11-06] MEDS ORDERED: Influenza Vaccine 60 mcg/0.5 mL SYR (4YR UP) IM ONE (00:04)
[2017-11-06] MEDS: Pantoprazole 40 mg EC Tab PO SCH (05:13)
[2017-11-06 08:10] LABS: HEMOGLOBIN 14.5 g/dL (14.0-18.0); MEAN CELL VOLUME 92.3 fl (80.0-105.0); MEAN CORPUSCULAR HEMOGLOBIN 30.9 pg (25.0-35.0); MEAN CORPUSCULAR HGB CONC 33.4 g/dl (31.0-37.0); MEAN PLATELET VOLUME 10.1 fl (7.0-11.0); RBC 4.7 10^6/uL (3.5-6.1); WHITE BLOOD COUNT 4.2 10^3/ul (4.5-11.0)
[2017-11-06 08:30] LABS: ALB/GLOB RATIO 1.1 (1.1-1.8); ALBUMIN 3.6 g/dL (3.0-4.8); ALT/SGPT 31 U/L (7-56); AST/SGOT 29 U/L (17-59); BLOOD UREA NITROGEN 18 mg/dL (7-21); CALCIUM 9.5 mg/dL (8.4-10.5); GFR AFRICAN-AMERICAN > 60; GFR NON-AFRICAN AMERICAN > 60
[2017-11-06] MEDS ORDERED: Divalproex 500 mg DR(BID formulation) PO SCH (10:00)
--- NOTE | 2017-11-06 11:37 | CP.PCM.PN ---
<Guevara Gross - Last Filed: 11/06/17 11:32> Subjective - Date & Time of Evaluation Date of Evaluation: 11/06/17 Time of Evaluation: 11:32 - Subjective Subjective: Medicine Progress Note: Patient seen and assessed at bedside. No acute events noted overnight by patient or nursing staff. Patient denies any complaints at this time. He denies any fever, chills, headache, seizures, chest pain, SOB, abdominal pain, N/V/D/C , urinary symptoms, gait changes, skin changes, numbness/tingling/weakness of any extremity or any homicidal/suicidal ideation. Objective - Vital Signs/Intake and Output Vital Signs (last 24 hours): Temp Pulse Resp BP Pulse Ox 98.7 F 54 L 20 121/78 97 11/06/17 06:00 11/06/17 06:00 11/06/17 06:00 11/06/17 06:00 11/06/17 06:00 Intake and Output: 11/06/17 11/06/17 06:59 18:59 Intake Total 240 Balance 240 - Medications Medications: Current Medications Acetaminophen (Tylenol 325mg Tab) 650 mg PO Q4H PRN PRN Reason: Pain, Mild (1-3) Last Admin: 11/06/17 09:30 Dose: 650 mg Divalproex Sodium (Depakote Dr(*Bid*)) 500 mg PO BID [facility] Last Admin: 11/06/17 09:32 Dose: 500 mg Heparin Sodium (Porcine) (Heparin) 5,000 units SC Q12 [facility] PRN Reason: Protocol Last Admin: 11/06/17 09:32 Dose: 5,000 units Levetiracetam (Keppra) 250 mg PO TID [facility] Last Admin: 11/06/17 09:31 Dose: 250 mg Lorazepam (Ativan) 2 mg IVP Q4H PRN; Protocol PRN Reason: Seizures Ondansetron HCl (Zofran Inj) 4 mg IVP Q4H PRN PRN Reason: Nausea/Vomiting Pantoprazole Sodium (Protonix Ec Tab) 40 mg PO 0600 [facility] Last Admin: 11/06/17 05:13 Dose: 40 mg - Labs Labs: 11/06/17 08:00 11/06/17 08:00 - Constitutional Appears: Non-toxic, No Acute Distress - Head Exam Head Exam: ATRAUMATIC, NORMOCEPHALIC - Eye Exam Eye Exam: EOMI, Normal appearance, PERRL Pupil Exam: NORMAL ACCOMODATION, PERRL - ENT Exam ENT Exam: Mucous Membranes Moist, Normal Exam, Normal Oropharynx - Neck Exam Neck Exam: Full ROM, Normal Inspection. absent: Lymphadenopathy, Meningismus, Tenderness - Respiratory Exam Respiratory Exam: Clear to Ausculation Bilateral, NORMAL BREATHING PATTERN. absent: Accessory Muscle Use, Chest Wall Tenderness, Decreased Breath Sounds, Prolonged Expiratory Phase, Rales, Rhonchi, Wheezes, Respiratory Distress, Stridor - Cardiovascular Exam Cardiovascular Exam: REGULAR RHYTHM, RRR, +S1, +S2. absent: Bradycardia, Tachycardia, Clicks, Diastolic murmur, Gallop, Irregular Rhythm, JVD, Rubs, +S4 , Murmur - GI/Abdominal Exam GI & Abdominal Exam: Soft, Normal Bowel Sounds. absent: Bruit, Distended, Firm , Guarding, Rigid, Tenderness, Diminished Bowel Sounds, Hernia, Hyperactive Bowel Sounds, Hypoactive Bowel Sounds, Organomegaly, Pulsatile Mass, Rebound, Mass - Extremities Exam Extremities Exam: Full ROM, Normal Capillary Refill, Normal Inspection. absent : Calf Tenderness, Joint Swelling, Pedal Edema, Tenderness - Back Exam Back Exam: NORMAL INSPECTION - Neurological Exam Neurological Exam: Alert, Awake, CN II-XII Intact, Normal Gait, Oriented x3 - Psychiatric Exam Psychiatric exam: Normal Affect, Normal Mood - Skin Skin Exam: Dry, Intact, Normal Color, Warm Assessment and Plan - Assessment and Plan (Free Text) Assessment: 52 year old male with a past medical history of unspecified seizure disorder who presented after a witnessed seizure. Patient was found to have a low level of Valproic Acid. Neurology was consulted and ordered EEG and MRI Brain. Psychiatry was consulted for anxiety and has no recommendations for any acute interventions at this time and patient has no complaints of anxiety at this time. Plan: 1. Seizure -CT Head negative for any acute intracranial abnormalities -Thoracic and Lumbar Spine X-Rays negative for acute fractures -MRI Fran and EEG pending -All electrolytes within normal limits -UDS and Serum Alcohol negative -Valprioc Acid low at 46 -Continue Depakote, Keppra, and PRN Ativan -Discontinued Lamictal -Neurology consulted, all recommendations appreciated 2. Anxiety -Patient currently denies complaints of anxiety -Psychiatry consulted, all recommendations appreciated GI Prophylaxis: Protonix DVT Prophylaxis: Heparin Patient seen and case discussed with attending, Dr. Benson. <Candida Benson - Last Filed: 11/07/17 14:51> Objective - Vital Signs/Intake and Output Vital Signs (last 24 hours): Temp Pulse Resp BP Pulse Ox 98 F 96 H 18 112/71 100 11/07/17 06:00 11/07/17 10:00 11/07/17 06:00 11/07/17 06:00 11/07/17 06:00 Intake and Output: 11/07/17 11/07/17 06:59 18:59 Intake Total 820 Balance 820 - Labs Labs: 11/07/17 08:30 11/07/17 08:30 Attending/Attestation - Attestation I have personally seen and examined this patient.: Yes I have fully participated in the care of the patient.: Yes I have reviewed all pertinent clinical information, including history, physical exam and plan: Yes Notes (Text): 11/07/17 14:51 Medical record note made by the resident after discussion with my direction and input after the patient was personally seen and examined by me. I have reviewed the chart and agree that the record accurately reflects by personal performance of the history, physical exam, data review, and medical decision-making, in the course for the patient. I have also personally directed the plan of care.
[2017-11-06 12:11] VITALS: RESP 18
--- NOTE | 2017-11-06 13:52 | CP.PCM.CON ---
History of Present Illness - History of Present Illness History of Present Illness: asked to consult on who has a history of epilepsy, syndrome as of yet undefined, who had a breakthrought seizure although he is on depakote and lamictal. Patient has a history of compliance with medications, and has no history of status epilepticus. There is no history of intracranial lesions. He has been on phenobarbital, dilantin and most recently depakote and lamictal. Primary neurologist is . No history of status epilepticus, or intubation. PMH/PSH: epilepsy since young age. FH/SH: Brother and another family member with epilepsy All: nkda on exam : Normal, neurological exam. Past Patient History - Infectious Disease Hx of Infectious Diseases: None - Past Social History Smoking Status: Light Smoker < 10 Cigarettes Daily - CARDIAC Hx Cardiac Disorders: No - PULMONARY Hx Respiratory Disorders: No - NEUROLOGICAL Hx Seizures: Yes - HEENT Hx HEENT Problems: No - RENAL Hx Chronic Kidney Disease: No - ENDOCRINE/METABOLIC Hx Endocrine Disorders: No - HEMATOLOGICAL/ONCOLOGICAL Hx Blood Disorders: No - INTEGUMENTARY Hx Dermatological Problems: No - MUSCULOSKELETAL/RHEUMATOLOGICAL Hx Musculoskeletal Disorders: No - GASTROINTESTINAL Hx Gastrointestinal Disorders: No - GENITOURINARY/GYNECOLOGICAL Hx Genitourinary Disorders: No - PSYCHIATRIC Hx Substance Use: No - SURGICAL HISTORY Hx Surgeries: No - ANESTHESIA Hx Anesthesia: No Hx Anesthesia Reactions: No Hx Malignant Hyperthermia: No Meds Allergies/Adverse Reactions: Allergies Allergy/AdvReac Type Severity Reaction Status Date / Time seafood Allergy unknown Uncoded 11/05/17 23:12 - Medications Medications: Current Medications Acetaminophen (Tylenol 325mg Tab) 650 mg PO Q4H PRN PRN Reason: Pain, Mild (1-3) Divalproex Sodium (Depakote Dr(*Bid*)) 500 mg PO BID REGINA Heparin Sodium (Porcine) (Heparin) 5,000 units SC Q12 REGINA PRN Reason: Protocol Lamotrigine (Lamictal) 150 mg PO BID REGINA Levetiracetam (Keppra) 250 mg PO TID REGINA Lorazepam (Ativan) 2 mg IVP Q4H PRN; Protocol PRN Reason: Seizures Ondansetron HCl (Zofran Inj) 4 mg IVP Q4H PRN PRN Reason: Nausea/Vomiting Pantoprazole Sodium (Protonix Ec Tab) 40 mg PO 0600 [facility] Results - Vital Signs Recent Vital Signs: Last Vital Signs Temp 98 F 11/05/17 18:23 Pulse 76 11/05/17 18:23 Resp 19 11/05/17 18:23 BP 116/75 11/05/17 18:23 Pulse Ox 100 11/05/17 18:23 - Labs Result Diagrams: 11/06/17 08:00 11/06/17 08:00 Labs: Laboratory Results - last 24 hr 11/05/17 18:27 POC Glucose (mg/dL) 107 - Imaging and Cardiology CT scan - head Status: Image reviewed by me, Report reviewed by me (norml. 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 plaN: 1. Load with keppra 1 gram now andcontinue on 500 mg keppra bid. 2. Increase depakote to 750 mg bid 3 EEGi n am.
--- NOTE | 2017-11-06 17:59 | CARD ---
APPROVED REPORT EKG Measurement Heart [id number] <Conclusion> Normal sinus rhythm Normal ECG
[2017-11-06] MEDS: Divalproex 250 mg DR (BID formulation) PO SCH (18:16)
--- NOTE | 2017-11-06 22:05 | CON ---
DATE: HISTORY OF PRESENT ILLNESS: Patient is a 52-year-old male with reported history of seizure disorder. Patient was admitted on the medical side for evaluation of unwitnessed seizures. Psych consult was called for evaluation of angry outburst and anxiety. Patient was seen and examined today. Patient presented to be alert, pleasant, cooperative. This technical report writer asked if patient was agitated or restless earlier, patient said that earlier he was waken up in order to draw blood work and the patient said that he was deeply sleeping and that is why he was upset and was feeling very angry. Other than that, patient denied being depressed, denied thoughts of killing himself or others. Patient denied hearing voices or denied seeing things. Patient reported that he had one previous admission in the s. Patient reported that he back then he was using drugs and it was the main problem for him to be into the Psychiatric Inpatient Unit. 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 Patient attends meetings. Patient reported that he is not feeling depressed and denied any thoughts of harming himself or others PHYSICAL EXAMINATION: VITAL SIGNS: Seems to be stable. Temperature 98.7, pulse is 54, blood pressure 121/78, respiration 26 and saturation is 97. MEDICATIONS: Reviewed. Tylenol, Depakote 500 mg twice a day. Patient reported that he was compliant with the medications. Patient also is on Lamictal 150 mg twice a day. Patient is on Keppra 250 mg three times a day, heparin, Ativan, Zofran, pantoprazole and Protonix. MENTAL STATUS EXAMINATION: Patient appears to be alert, pleasant, cooperative. There is some cognitive deficit obviously. Patient has either a borderline intellectual functioning or some neurocognitive problems, but besides that, patient was very pleasant, cooperative. Patient knows the date. Patient knows the name of the hospital and circumstances of his admission to the Psychiatric Inpatient Unit, but patient reported that he does not remember actual seizures what he had. Fair eye contact. Sometimes patient was stuttery, child-like demeanor and young and "I'm not feeling depressed and why would I want to kill myself?" Affect was reactive, mood congruent. Thought process seems to be concrete. Thought content, patient denied visual, auditory, tactile hallucinations. Denied paranoid ideation. Patient denied thoughts of harming himself or others. Denied intent or plan. Insight and judgment seems to be fair. Impulses are well predictable. IMPRESSION: Patient has seizure disorder in regards of angry outbursts and anxiety. Angry outburst could be related to the seizures and postictal agitation, but patient obviously was not agitated during the interview, also Keppra could give irritability, hostility and mood swings. Please consider to increase the Depakote if needed, rule out mood disorder due to general medical condition, rule out neurocognitive disorder. PLAN: Continue current management. Continue current medications. Depakote level was low at 46, but this technical report writer is not sure if patient was taking Depakote or not. Patient was advised to take medication as it was prescribed. Patient verbalized understanding. Patient denied being depressed. Denied thoughts of harming himself or others. Patient deemed not to be in any imminent danger to self or others. Patient needs to continue Depakote as well as Lamictal. Monitor blood bloods level of Depakote. Patient reported being compliant with the medications. This technical report writer emphasized the need of continue doing so. Patient seems to be not in any distress. This technical report writer will sign off. Should you have any questions, give me a call back. Kristin Lomeli MD
[2017-11-07 00:13] VITALS: O2SAT 100
[2017-11-07 06:51] VITALS: BP 112/71; TEMP 98
[2017-11-07] MEDS: Pantoprazole 40 mg EC Tab PO SCH (07:14)
[2017-11-07 08:53] LABS: HEMOGLOBIN 16.2 g/dL (14.0-18.0); MEAN CELL VOLUME 92.4 fl (80.0-105.0); MEAN CORPUSCULAR HEMOGLOBIN 30.8 pg (25.0-35.0); MEAN CORPUSCULAR HGB CONC 33.3 g/dl (31.0-37.0); MEAN PLATELET VOLUME 10.3 fl (7.0-11.0); RBC 5.26 10^6/uL (3.5-6.1); WHITE BLOOD COUNT 4.9 10^3/ul (4.5-11.0)
[2017-11-07 08:59] LABS: ALB/GLOB RATIO 1.1 (1.1-1.8); ALT/SGPT 35 U/L (7-56); AST/SGOT 31 U/L (17-59); BLOOD UREA NITROGEN 19 mg/dL (7-21); CALCIUM 9.7 mg/dL (8.4-10.5); GFR AFRICAN-AMERICAN > 60; GFR NON-AFRICAN AMERICAN > 60
--- NOTE | 2017-11-07 09:13 | MRI ---
PROCEDURE: MRI BRAIN WITHOUT CONTRAST HISTORY: seizures COMPARISON: None. TECHNIQUE: Multiplanar, multisequence MR images of the brain were obtained without intravenous contrast enhancement. FINDINGS: HEMORRHAGE: None DWI: No evidence of an acute or early subacute infarction. BRAIN PARENCHYMA: 7 millimeter meningioma along the left anterior falx. No atrophy or chronic microvascular ischemic changes. VENTRICLES: Unremarkable. No hydrocephalus. CRANIUM: Unremarkable. ORBITS: Grossly unremarkable. PARANASAL SINUSES/MASTOIDS: Clear VASCULAR SYSTEM: Skull base flow voids intact. OTHER FINDINGS: None. IMPRESSION: 7 millimeter meningioma along the left anterior falx.
[2017-11-07] MEDS: Divalproex 250 mg DR (BID formulation) PO SCH (12:45)
[2017-11-07 13:11] VITALS: PULSE 96
--- NOTE | 2017-11-07 18:51 | CP.PCM.DIS ---
<Guevara Gross - Last Filed: 11/07/17 18:46> Provider - Provider Date of Admission: 11/05/17 18:11 Attending physician: Candida Benson MD Consults: Neuro: Michelle Time Spent in preparation of Discharge (in minutes): 41 Hospital Course - Lab Results Lab Results: Most Recent Lab Values WBC 4.9 10^3/ul (4.5-11.0) 11/07/17 08:30 RBC 5.26 10^6/uL (3.5-6.1) 11/07/17 08:30 Hgb 16.2 g/dL (14.0-18.0) 11/07/17 08:30 Hct 48.6 % (42.0-52.0) 11/07/17 08:30 MCV 92.4 fl (80.0-105.0) 11/07/17 08:30 MCH 30.8 pg (25.0-35.0) 11/07/17 08:30 MCHC 33.3 g/dl (31.0-37.0) 11/07/17 08:30 RDW 14.0 % (11.5-14.5) 11/07/17 08:30 Plt Count 147 10^3/uL (120.0-450.0) 11/07/17 08:30 MPV 10.3 fl (7.0-11.0) 11/07/17 08:30 Gran % 62.4 % (50.0-68.0) 11/05/17 16:10 Lymph % (Auto) 13.1 % (22.0-35.0) L 11/05/17 16:10 Morton % (Auto) 22.4 % (1.0-6.0) H 11/05/17 16:10 Eos % (Auto) 1.6 % (1.5-5.0) 11/05/17 16:10 Baso % (Auto) 0.5 % (0.0-3.0) 11/05/17 16:10 Gran # 2.34 (1.4-6.5) 11/05/17 16:10 Lymph # (Auto) 0.5 (1.2-3.4) L 11/05/17 16:10 Morton # (Auto) 0.8 (0.1-0.6) H 11/05/17 16:10 Eos # (Auto) 0.1 (0.0-0.7) 11/05/17 16:10 Baso # (Auto) 0.02 K/mm3 (0.0-2.0) 11/05/17 16:10 Neutrophils % (Manual) 71 % (50.0-70.0) H 11/05/17 16:10 Lymphocytes % (Manual) 11 % (22.0-35.0) L 11/05/17 16:10 Monocytes % (Manual) 17 % (1.0-6.0) H 11/05/17 16:10 Eosinophils % (Manual) 1 % (0.0-3.0) 11/05/17 16:10 Platelet Evaluation Normal (NORMAL) 11/05/17 16:10 Sodium 141 mmol/L (132-148) 11/07/17 08:30 Potassium 4.1 mmol/L (3.6-5.0) 11/07/17 08:30 Chloride 104 mmol/L (98-107) 11/07/17 08:30 Carbon Dioxide 27 mmol/L (21-33) 11/07/17 08:30 Anion Gap 14 (10-20) 11/07/17 08:30 BUN 19 mg/dL (7-21) 11/07/17 08:30 Creatinine 0.9 mg/dl (0.8-1.5) 11/07/17 08:30 Est GFR ( Amer) > 60 11/07/17 08:30 Est GFR (Non-Af Amer) > 60 11/07/17 08:30 POC Glucose (mg/dL) 107 mg/dL (65-110) 11/05/17 18:27 Random Glucose 84 mg/dL (70-110) 11/07/17 08:30 Calcium 9.7 mg/dL (8.4-10.5) 11/07/17 08:30 Phosphorus 4.3 mg/dL (2.5-4.5) 11/06/17 08:00 Magnesium 2.0 mg/dL (1.7-2.2) 11/06/17 08:00 Total Bilirubin 0.6 mg/dL (0.2-1.3) 11/07/17 08:30 AST 31 U/L (17-59) 11/07/17 08:30 ALT 35 U/L (7-56) 11/07/17 08:30 Alkaline Phosphatase 28 U/L (38-126) L 11/07/17 08:30 Total Protein 7.6 g/dL (5.8-8.3) 11/07/17 08:30 Albumin 4.0 g/dL (3.0-4.8) 11/07/17 08:30 Globulin 3.6 gm/dL 11/07/17 08:30 Albumin/Globulin Ratio 1.1 (1.1-1.8) 11/07/17 08:30 Urine Opiates Screen Negative (NEGATIVE) 11/05/17 17:25 Urine Methadone Screen Negative (NEGATIVE) 11/05/17 17:25 Ur Barbiturates Screen Negative (NEGATIVE) 11/05/17 17:25 Valproic Acid 46 ug/mL (50.0-100.0) L 11/05/17 16:10 Ur Phencyclidine Scrn Negative (NEGATIVE) 11/05/17 17:25 Ur Amphetamines Screen Negative (NEGATIVE) 11/05/17 17:25 U Benzodiazepines Scrn Negative (NEGATIVE) 11/05/17 17:25 U Oth Cocaine Metabols Negative (NEGATIVE) 11/05/17 17:25 U Cannabinoids Screen Negative (NEGATIVE) 11/05/17 17:25 Alcohol, Quantitative < 10 mg/dL (0-10) 11/05/17 16:10 - Hospital Course Hospital Course: 52 year old male with a past medical history of unspecified seizure disorder who presented after a witnessed seizure. Patient was found to have a low level of Valproic Acid. Neurology was consulted and ordered EEG and MRI Brain which showed a 7mm incidental meningioma. Psychiatry was consulted for anxiety and had no recommendations for any acute interventions. He was started on Depakote, Keppra, Lamictal and PRN Ativan. Patient had no seizures after admission. He was taken off of Lamictal as this decreases absorption of Depakote. His Depakote dose was increased from 500 to 750 and he was started on Keppra 500mg BID. He was discharged on 11/07/2017 with instructions to follow up with his PMD and Neurology within one month. - Date & Time of H&P Date of H&P: 03/07/18 Time of H&P: 18:53 Discharge Exam - Head Exam Head Exam: ATRAUMATIC, NORMOCEPHALIC - Eye Exam Eye Exam: EOMI, PERRL Pupil Exam: NORMAL ACCOMODATION, PERRL - ENT Exam ENT Exam: Mucous Membranes Moist, Normal Exam - Neck Exam Neck exam: Normal Inspection - Respiratory Exam Respiratory Exam: Clear to PA & Lateral, NORMAL BREATHING PATTERN, UNREMARKABLE - Cardiovascular Exam Cardiovascular Exam: REGULAR RHYTHM - GI/Abdominal Exam GI & Abdominal Exam: Normal Bowel Sounds, Soft, Unremarkable - Extremities Exam Extremities exam: full ROM, normal capillary refill, normal inspection, pedal pulses present - Back Exam Back exam: NORMAL INSPECTION - Neurological Exam Neurological exam: Alert, CN II-XII Intact, Normal Gait, Oriented x3, Reflexes Normal - Psychiatric Exam Psychiatric exam: Normal Affect, Normal Mood - Skin Skin Exam: Dry, Intact, Normal Color, Warm Discharge Plan - Discharge Medications Prescriptions: Divalproex [Depakote DR (*BID*)] 750 mg PO BID #28 tcp levETIRAcetam [Keppra] 500 mg PO BID #28 tab - Follow Up Plan Condition: FAIR Disposition: HOME/ ROUTINE Instructions: Seizures, Adult (DC), Levetiracetam Additional Instructions: Please follow up with your primary care physician within one week for post hospitalization follow up. Please follow up with Dr. Michelle in one month. Her contact information has been provided in this paperwork. Please take all medications as prescribed. Lamictal has been discontinued ( Please stop taking this medication). You have been started on Keppra. Please see attached information on this medication. If your symptoms should worsen or persist, please seek emergency medical attention. Referrals: Gissel Michelle MD [Staff Provider] - <Candida Benson - Last Filed: 11/08/17 13:58> Provider - Provider Date of Admission: 11/05/17 18:11 Attending physician: Candida Benson MD Hospital Course - Lab Results Lab Results: Most Recent Lab Values WBC 4.9 10^3/ul (4.5-11.0) 11/07/17 08:30 RBC 5.26 10^6/uL (3.5-6.1) 11/07/17 08:30 Hgb 16.2 g/dL (14.0-18.0) 11/07/17 08:30 Hct 48.6 % (42.0-52.0) 11/07/17 08:30 MCV 92.4 fl (80.0-105.0) 11/07/17 08:30 MCH 30.8 pg (25.0-35.0) 11/07/17 08:30 MCHC 33.3 g/dl (31.0-37.0) 11/07/17 08:30 RDW 14.0 % (11.5-14.5) 11/07/17 08:30 Plt Count 147 10^3/uL (120.0-450.0) 11/07/17 08:30 MPV 10.3 fl (7.0-11.0) 11/07/17 08:30 Gran % 62.4 % (50.0-68.0) 11/05/17 16:10 Lymph % (Auto) 13.1 % (22.0-35.0) L 11/05/17 16:10 Morton % (Auto) 22.4 % (1.0-6.0) H 11/05/17 16:10 Eos % (Auto) 1.6 % (1.5-5.0) 11/05/17 16:10 Baso % (Auto) 0.5 % (0.0-3.0) 11/05/17 16:10 Gran # 2.34 (1.4-6.5) 11/05/17 16:10 Lymph # (Auto) 0.5 (1.2-3.4) L 11/05/17 16:10 Morton # (Auto) 0.8 (0.1-0.6) H 11/05/17 16:10 Eos # (Auto) 0.1 (0.0-0.7) 11/05/17 16:10 Baso # (Auto) 0.02 K/mm3 (0.0-2.0) 11/05/17 16:10 Neutrophils % (Manual) 71 % (50.0-70.0) H 11/05/17 16:10 Lymphocytes % (Manual) 11 % (22.0-35.0) L 11/05/17 16:10 Monocytes % (Manual) 17 % (1.0-6.0) H 11/05/17 16:10 Eosinophils % (Manual) 1 % (0.0-3.0) 11/05/17 16:10 Platelet Evaluation Normal (NORMAL) 11/05/17 16:10 Sodium 141 mmol/L (132-148) 11/07/17 08:30 Potassium 4.1 mmol/L (3.6-5.0) 11/07/17 08:30 Chloride 104 mmol/L (98-107) 11/07/17 08:30 Carbon Dioxide 27 mmol/L (21-33) 11/07/17 08:30 Anion Gap 14 (10-20) 11/07/17 08:30 BUN 19 mg/dL (7-21) 11/07/17 08:30 Creatinine 0.9 mg/dl (0.8-1.5) 11/07/17 08:30 Est GFR ( Amer) > 60 11/07/17 08:30 Est GFR (Non-Af Amer) > 60 11/07/17 08:30 POC Glucose (mg/dL) 107 mg/dL (65-110) 11/05/17 18:27 Random Glucose 84 mg/dL (70-110) 11/07/17 08:30 Calcium 9.7 mg/dL (8.4-10.5) 11/07/17 08:30 Phosphorus 4.3 mg/dL (2.5-4.5) 11/06/17 08:00 Magnesium 2.0 mg/dL (1.7-2.2) 11/06/17 08:00 Total Bilirubin 0.6 mg/dL (0.2-1.3) 11/07/17 08:30 AST 31 U/L (17-59) 11/07/17 08:30 ALT 35 U/L (7-56) 11/07/17 08:30 Alkaline Phosphatase 28 U/L (38-126) L 11/07/17 08:30 Total Protein 7.6 g/dL (5.8-8.3) 11/07/17 08:30 Albumin 4.0 g/dL (3.0-4.8) 11/07/17 08:30 Globulin 3.6 gm/dL 11/07/17 08:30 Albumin/Globulin Ratio 1.1 (1.1-1.8) 11/07/17 08:30 Urine Opiates Screen Negative (NEGATIVE) 11/05/17 17:25 Urine Methadone Screen Negative (NEGATIVE) 11/05/17 17:25 Ur Barbiturates Screen Negative (NEGATIVE) 11/05/17 17:25 Valproic Acid 46 ug/mL (50.0-100.0) L 11/05/17 16:10 Ur Phencyclidine Scrn Negative (NEGATIVE) 11/05/17 17:25 Ur Amphetamines Screen Negative (NEGATIVE) 11/05/17 17:25 U Benzodiazepines Scrn Negative (NEGATIVE) 11/05/17 17:25 U Oth Cocaine Metabols Negative (NEGATIVE) 11/05/17 17:25 U Cannabinoids Screen Negative (NEGATIVE) 11/05/17 17:25 Alcohol, Quantitative < 10 mg/dL (0-10) 11/05/17 16:10 Attending/Attestation - Attestation I have personally seen and examined this patient.: Yes I have fully participated in the care of the patient.: Yes I have reviewed all pertinent clinical information, including history, physical exam and plan: Yes Notes (Text): 11/08/17 13:55 Medical record note made by the resident after discussion with my direction and input after the patient was personally seen and examined by me. I have reviewed the chart and agree that the record accurately reflects by personal performance of the history, physical exam, data review, and medical decision-making, in the course for the patient. I have also personally directed the plan of care. 52 year old male with a past medical history of unspecified seizure disorder who presented after a witnessed seizure. Patient was found to have a low level of Valproic Acid. Neurology consult was obtained.Patient medications has been changed to Keppra and depakote. MRI Brain which showed a 7mm incidental meningioma, .patient remain seizure free in the hospital.He will be discharged home and will follow up with PCP and Neurology. Management plan was discussed in detail with patient. Education was provided.
== END 2017-11-07 14:15 | disposition home or self-care (01) ==
LOC: ED 14:39 → ERH 18:11 → 2RNO 22:20
PROVIDERS: ADMIT Internal Medicine; ATTEND Internal Medicine
DX: G40.209 Localization-related (focal) (partial) symptomatic epilepsy and epileptic syndromes with complex partial seizures, not intractable, without status epilepticus (principal); F41.9 Anxiety disorder, unspecified
CPT/HCPCS: 36415; 70450; 70551; 72070; 72110; 80053; 80164; 80299; 80320; 80324; 80345; 80346; 80349; 80353; 80358; 80361; 82948; 83735; 83992; 84100; 85025; 85027; 93005; 95812; 99285; G0378; J1644; J1885

== ENCOUNTER 2017-11-23 13:42 | Emergency (ER) | payer MEDICAID ==
[2017-11-23 13:42] VITALS: BMI 27.0
[2017-11-23 13:57] VITALS: RESP 18; TEMP 98.7
--- NOTE | 2017-11-23 14:00 | ED PDOC ---
Arrival/HPI - General Chief Complaint: Seizure Time Seen by Provider: 11/23/17 13:47 Historian: Patient - History of Present Illness Narrative History of Present Illness (Text): 11/23/17 13:46 52 year old male presents to the Emergency department following a seizure between 13:00-13:30 today. Patient states his medications were recently changed and he has not missed any doses. Duration of the seizure is unknown. Patient was not incontinent and did not bite his tongue. Patient refused transport to [facility] and instead had a friend drive him here because in [facility] he states they usually do a small workup and discharge him home. While in the Emergency department, patient reports he feels fine. Patient denies any fever, chills, chest pain, shortness of breath, nausea, vomiting, diarrhea, urinary symptoms, back pain, neck pain, headache, trauma/injury, or any other complaints. Time/Duration: Prior to Arrival Symptom Onset: Sudden Symptom Course: Resolved Activities at Onset: Rest Context: Home Past Medical History - Provider Review Nursing Documentation Reviewed: Yes - Infectious Disease Hx of Infectious Diseases: None - Cardiac Hx Cardiac Disorders: No - Pulmonary Hx Respiratory Disorders: No - Neurological Hx Seizures: Yes - HEENT Hx HEENT Disorder: No - Renal Hx Renal Disorder: No - Endocrine/Metabolic Hx Endocrine Disorders: No - Hematological/Oncological Hx Blood Disorders: No - Integumentary Hx Dermatological Disorder: No - Musculoskeletal/Rheumatological Hx Musculoskeletal Disorders: No - Gastrointestinal Hx Gastrointestinal Disorders: No - Genitourinary/Gynecological Hx Genitourinary Disorders: No - Psychiatric Hx Psychophysiologic Disorder: Yes Hx Substance Use: No Other/Comment: Substance abuse-HEROINE COCAINE AND MARIJUANA USE - Anesthesia Hx Anesthesia: No Hx Anesthesia Reactions: No Hx Malignant Hyperthermia: No Family/Social History - Physician Review Nursing Documentation Reviewed: Yes Family/Social History: Unknown Family HX Smoking Status: Light Smoker < 10 Cigarettes Daily Hx Alcohol Use: Yes (ETOH ABUSE ATTENDS AA [employer]IRINO MEETINGS) Hx Substance Use: No Allergies/Home Meds Allergies/Adverse Reactions: Allergies seafood Allergy (Uncoded 11/05/17 23:12) unknown Home Medications: Home Meds Medication Instructions Recorded Confirmed Divalproex [Depakote DR (*BID*)] 500 mg PO BID 11/23/17 11/23/17 Review of Systems - Physician Review All systems were reviewed & negative as marked: Yes - Review of Systems Constitutional: absent: Fevers, Night Sweats Respiratory: absent: SOB Cardiovascular: absent: Chest Pain Gastrointestinal: absent: Diarrhea, Nausea, Vomiting Genitourinary Male: absent: Dysuria Musculoskeletal: absent: Back Pain, Neck Pain Neurological: Seizure. absent: Headache Physical Exam Vital Signs Reviewed: Yes Vital Signs Temp Pulse Resp BP Pulse Ox 11/23/17 15:42 52 L 18 118/74 98 11/23/17 13:54 98.7 F 67 18 117/74 97 Temperature: Afebrile Blood Pressure: Normal Pulse: Regular Respiratory Rate: Normal Appearance: Positive for: Well-Appearing, Non-Toxic, Comfortable Pain Distress: None Mental Status: Positive for: Alert and Oriented X 3 - Systems Exam Head: Present: Atraumatic, Normocephalic Pupils: Present: PERRL Extroacular Muscles: Present: EOMI Conjunctiva: Present: Normal Mouth: Present: Moist Mucous Membranes Neck: Present: Normal Range of Motion Respiratory/Chest: Present: Clear to Auscultation, Good Air Exchange. No: Respiratory Distress, Accessory Muscle Use Cardiovascular: Present: Regular Rate and Rhythm, Normal S1, S2. No: Murmurs Abdomen: Present: Normal Bowel Sounds. No: Tenderness, Distention, Peritoneal Signs Back: Present: Normal Inspection Upper Extremity: Present: Normal Inspection. No: Cyanosis, Edema Lower Extremity: Present: Normal Inspection. No: Edema Neurological: Present: GCS=15, CN II-XII Intact, Speech Normal Skin: Present: Warm, Dry, Normal Color. No: Rashes Psychiatric: Present: Alert, Oriented x 3, Normal Insight, Normal Concentration Medical Decision Making ED Course and Treatment: 11/23/17 14:03 Impression: 52 year old male presents to the Emergency department following a seizure just prior to arrival. Plan: -- Urinalysis, urine drug screen -- Reassess and disposition Prior Visits: Notes and results from previous visits were reviewed. Patient was last seen in the emergency department on 11/05/17 for seizure and was hospitalized. Progress Notes: - Lab Interpretations Lab Results: 11/23/17 14:00 11/23/17 14:00 Lab Results 11/23/17 16:42: Urine Opiates Screen Negative, Urine Methadone Screen Negative, Ur Barbiturates Screen Negative, Ur Phencyclidine Scrn Negative, Ur Amphetamines Screen Negative, U Benzodiazepines Scrn Negative, U Oth Cocaine Metabols Negative, U Cannabinoids Screen Negative 11/23/17 16:42: Urine Color Yellow, Urine Appearance Clear, Urine pH 7.0, Ur Specific [place] 1.020, Urine Protein Negative, Urine Glucose (UA) Negative, Urine Ketones Negative, Urine Blood Negative, Urine Nitrate Negative, Urine Bilirubin Negative, Urine Urobilinogen 1.0 H, Ur Leukocyte Esterase Negative 11/23/17 14:02: POC Glucose (mg/dL) 88 11/23/17 14:00: Alcohol, Quantitative < 10 11/23/17 14:00: Sodium 143, Potassium 3.9, Chloride 109 H, Carbon Dioxide 28, Anion Gap 10, BUN 18, Creatinine 0.8, Est GFR ( Amer) > 60, Est GFR (Non- Af Amer) > 60, Random Glucose 88, Calcium 9.3, Total Bilirubin 0.4, AST 26, ALT 18, Alkaline Phosphatase 21 L D, Total Protein 7.0, Albumin 3.6, Globulin 3.4, Albumin/Globulin Ratio 1.1 11/23/17 14:00: WBC 4.3 L, RBC 4.50, Hgb 13.7 L D, Hct 40.3 L, MCV 89.6, MCH 30.4, MCHC 34.0, RDW 13.8, Plt Count 184, MPV 9.7, Gran % 40.8 L, Lymph % (Auto ) 43.8 H, [place] % (Auto) 12.2 H, Eos % (Auto) 3.0, Baso % (Auto) 0.2, Gran # 1.74 , Lymph # (Auto) 1.9, [place] # (Auto) 0.5, Eos # (Auto) 0.1, Baso # (Auto) 0.01 11/23/17 14:00: Valproic Acid 66 - PA / TEST CONDUCTOR / Resident Statement MD/DO has reviewed & agrees with the documentation as recorded. - Scribe Statement The provider has reviewed the documentation as recorded by the Scribcandelario Lyons All medical record entries made by the Scribe were at my direction and personally dictated by me. I have reviewed the chart and agree that the record accurately reflects my personal performance of the history, physical exam, medical decision making, and the department course for this patient. I have also personally directed, reviewed, and agree with the discharge instructions and disposition. Disposition/Present on Arrival - Present on Arrival Any Indicators Present on Arrival: No History of DVT/PE: No History of Uncontrolled Diabetes: No Urinary Catheter: No History of Decub. Ulcer: No History Surgical Site Infection Following: None - Disposition Have Diagnosis and Disposition been Completed?: Yes Diagnosis: Breakthrough seizure Disposition: HOME/ ROUTINE Disposition Time: 17:55 Patient Plan: Discharge Condition: GOOD Discharge Instructions (ExitCare): Seizures, Adult (DC) Additional Instructions: [place] this happened to you. Please follow up with your doctors. Return to us if worse or any new symptoms. Continue your medications as prescribed. Nate- Dr. Jose Gaytan Forms: [employer] (Finnish)
[2017-11-23 14:14] LABS: BASO # 0.01 K/mm3 (0.0-2.0); BASO % 0.2 % (0.0-3.0); EOS # 0.1 (0.0-0.7); GRAN # 1.74 (1.4-6.5); GRAN % 40.8 % (50.0-68.0); HEMOGLOBIN 13.7 g/dL (14.0-18.0); LYMPH # 1.9 (1.2-3.4); LYMPH % 43.8 % (22.0-35.0); MEAN CELL VOLUME 89.6 fl (80.0-105.0); MEAN CORPUSCULAR HEMOGLOBIN 30.4 pg (25.0-35.0); MEAN PLATELET VOLUME 9.7 fl (7.0-11.0); MONO # 0.5 (0.1-0.6); MONO % 12.2 % (1.0-6.0); RBC 4.5 10^6/uL (3.5-6.1); RED CELL DISTRIBUTION WIDTH 13.8 % (11.5-14.5); WHITE BLOOD COUNT 4.3 10^3/ul (4.5-11.0)
[2017-11-23 14:29] LABS: ALB/GLOB RATIO 1.1 (1.1-1.8); ALBUMIN 3.6 g/dL (3.0-4.8); ALT/SGPT 18 U/L (7-56); AST/SGOT 26 U/L (17-59); BLOOD UREA NITROGEN 18 mg/dL (7-21); CALCIUM 9.3 mg/dL (8.4-10.5); GFR AFRICAN-AMERICAN > 60; GFR NON-AFRICAN AMERICAN > 60
[2017-11-23 17:25] LABS: URINE BILIRUBIN NEGATIVE (NEGATIVE); URINE BLOOD NEGATIVE (NEGATIVE); URINE GLUCOSE (UA) NEGATIVE (NEGATIVE); URINE LEUKOCYTE ESTERASE NEGATIVE Leu/uL (NEGATIVE); URINE PROTEIN NEGATIVE mg/dL (<30 mg/dL)
[2017-11-23 17:27] LABS: BARBITURATES, UR NEGATIVE (NEGATIVE)
[2017-11-23 17:33] LABS: URINE APPEARANCE CLEAR (CLEAR); URINE COLOR YELLOW (YELLOW)
[2017-11-23 17:36] LABS: BENZODIAZEPINES, UR NEGATIVE (NEGATIVE); OPIATES, UR NEGATIVE (NEGATIVE); PHENCYCLIDINE, UR NEGATIVE (NEGATIVE)
[2017-11-23 18:56] VITALS: O2SAT 100
[2017-11-23 20:20] VITALS: BP 121/73; PULSE 56
== END 2017-11-23 20:00 | disposition home or self-care (01) ==
LOC: ED 13:42
DX: G40.909 Epilepsy, unspecified, not intractable, without status epilepticus (principal)

== ENCOUNTER 2017-12-11 18:29 | Observation (INO) | payer MEDICAID ==
[2017-12-11 18:29] VITALS: BMI 27.0
--- NOTE | 2017-12-11 19:56 | ED PDOC ---
Arrival/HPI - General Chief Complaint: Seizure Time Seen by Provider: 12/11/17 19:22 Historian: Patient - History of Present Illness Narrative History of Present Illness (Text): 12/11/17 19:40 A 52 year old male, whose past medical history includes seizure disorder, presents to the emergency department complaining of seizure. Patient reports he was on his way to the meeting when having sudden seizure. Patient's medication has recently been changed to Keppra, takes twice daily, 500 mg per dose and Depakote twice daily dose unknown.Pt. states he takes his medication routinely. Notes seizure was brief for several minutes. Denies any tongue bite, self- urination, or any other complaints at this time. PMD: Dr. Juan Carlos Guillen Past Medical History - Provider Review Nursing Documentation Reviewed: Yes - Infectious Disease Hx of Infectious Diseases: None - Cardiac Hx Cardiac Disorders: No - Pulmonary Hx Respiratory Disorders: No - Neurological Hx Seizures: Yes - HEENT Hx HEENT Disorder: No - Renal Hx Renal Disorder: No - Endocrine/Metabolic Hx Endocrine Disorders: No - Hematological/Oncological Hx Blood Disorders: No - Integumentary Hx Dermatological Disorder: No - Musculoskeletal/Rheumatological Hx Musculoskeletal Disorders: No - Gastrointestinal Hx Gastrointestinal Disorders: No - Genitourinary/Gynecological Hx Genitourinary Disorders: No - Psychiatric Hx Psychophysiologic Disorder: Yes Hx Substance Use: No Other/Comment: Substance abuse-HEROINE COCAINE AND MARIJUANA USE - Anesthesia Hx Anesthesia: No Hx Anesthesia Reactions: No Hx Malignant Hyperthermia: No Family/Social History - Physician Review Nursing Documentation Reviewed: Yes Family/Social History: No Known Family HX Smoking Status: Light Smoker < 10 Cigarettes Daily Hx Alcohol Use: Yes (ETOH ABUSE ATTENDS AA [employer]IRINO MEETINGS) Hx Substance Use: No Allergies/Home Meds Allergies/Adverse Reactions: Allergies seafood Allergy (Uncoded 11/05/17 23:12) unknown Home Medications: Home Meds Medication Instructions Recorded Confirmed Divalproex [Nohemi MCDUFFIE (*BID*)] 500 mg PO BID 11/23/17 12/11/17 Review of Systems - Physician Review All systems were reviewed & negative as marked: Yes - Review of Systems Constitutional: absent: Other (no tongue bite) Genitourinary Male: absent: Other (no self-urination) Neurological: Seizure Physical Exam Vital Signs Reviewed: Yes Vital Signs Temp Pulse Resp BP Pulse Ox 12/11/17 21:51 65 18 121/85 100 12/11/17 18:29 98.8 F 62 18 119/75 100 Temperature: Afebrile Blood Pressure: Normal Pulse: Regular Respiratory Rate: Normal Appearance: Positive for: Well-Appearing, Non-Toxic, Comfortable Pain Distress: None Mental Status: Positive for: Alert and Oriented X 3 - Systems Exam Head: Present: Atraumatic, Normocephalic Pupils: Present: PERRL Extroacular Muscles: Present: EOMI Conjunctiva: Present: Normal Mouth: Present: Moist Mucous Membranes Respiratory/Chest: Present: Clear to Auscultation, Good Air Exchange. No: Respiratory Distress, Accessory Muscle Use Cardiovascular: Present: Regular Rate and Rhythm, Normal S1, S2. No: Murmurs Abdomen: No: Tenderness, Distention, Peritoneal Signs Upper Extremity: Present: Normal Inspection. No: Cyanosis, Edema Lower Extremity: Present: Normal Inspection. No: Edema Neurological: Present: GCS=15, CN II-XII Intact, Speech Normal, Motor Func Grossly Intact, Normal Sensory Function, Normal Cerebellar Funct, Norm Deep Tendon Reflexes, Gait Normal, Memory Normal, Normal 2Pt Descrimination, Other ( No focal deficits) Skin: Present: Warm, Dry, Normal Color. No: Rashes Psychiatric: Present: Alert, Oriented x 3, Normal Insight, Normal Concentration Medical Decision Making ED Course and Treatment: 12/11/17 19:49 Impression: 52 year old male with seizure. No acute findings on physical examination. Plan: -- EKG -- Labs -- Reassess and disposition Prior visits: Patient last seen here on 11/23/2017 for seizure. Patient was d/c home. Progress Notes: EKG: Ordered, reviewed, and independently interpreted the EKG. Rate : 54 BPM Rhythm : Sinus Bradycardia Interpretation : No ST-segment elevations or depressions, no T-wave inversions, normal intervals. Comparison : No previous EKG for comparison. 12/11/17 22:16: Case discussed with biomedical engineering technologist. Chest X-ray read and interpreted by me shows no acute disease. 12/11/17 22:54: Case discussed in detail with Dr. Gibbs. Will admit patient for observation to his service. - Lab Interpretations Lab Results: 12/11/17 20:00 12/11/17 20:00 Lab Results 12/11/17 20:00: WBC 3.8 L, RBC 4.09, Hgb 12.5 L, Hct 37.1 L, MCV 90.7, MCH 30.6 , MCHC 33.7, RDW 13.5, Plt Count 150, MPV 9.7 12/11/17 20:00: Sodium 141, Potassium 3.4 L, Chloride 114 H, Carbon Dioxide 22, Anion Gap 8 L, BUN 16, Creatinine 0.6 L, Est GFR ( Amer) > 60, Est GFR ( Non-Af Amer) > 60, Random Glucose 66 L, Calcium 7.1 L, Total Bilirubin 0.3, AST 22, ALT 24, Alkaline Phosphatase < 20 L, Lactate Dehydrogenase 392, Total Creatine Kinase 254 H, CK-MB (CK-2) 1.0, CK-MB (CK-2) % Cancelled, Troponin I < 0.01, Total Protein 5.4 L, Albumin 2.6 L, Globulin 2.8, Albumin/Globulin Ratio 0.9 L - RAD Interpretation Radiology Orders: 12/11/17 19:59 HEAD W/O CONTRAST [CT] Stat CHEST PORTABLE [RAD] Stat - Medication Orders Current Medication Orders: Divalproex Sodium (Depakote Dr(*Bid*)) 500 mg PO BID REGINA PRN Reason: Protocol Levetiracetam (Keppra) 500 mg PO BID REGINA Lorazepam (Ativan) 3 mg IVP Q6H PRN; Protocol PRN Reason: Seizure activity Ondansetron HCl (Zofran Inj) 4 mg IVP Q6H PRN PRN Reason: Nausea/Vomiting Pantoprazole Sodium (Protonix Ec Tab) 20 mg PO 0600,1600 [facility] - Scribe Statement The provider has reviewed the documentation as recorded by the Shane Jules Provider Scribe Attestation: All medical record entries made by the Shane were at my direction and personally dictated by me. I have reviewed the chart and agree that the record accurately reflects my personal performance of the history, physical exam, medical decision making, and the department course for this patient. I have also personally directed, reviewed, and agree with the discharge instructions and disposition. Disposition/Present on Arrival - Present on Arrival Any Indicators Present on Arrival: No History of DVT/PE: No History of Uncontrolled Diabetes: No Urinary Catheter: No History of Decub. Ulcer: No History Surgical Site Infection Following: None - Disposition Have Diagnosis and Disposition been Completed?: Yes Diagnosis: Seizure disorder, Seizure Disposition: HOSPITALIZED Disposition Time: 23:03 Patient Plan: Observation Patient Problems: Current Active Problems Problem Status Onset Seizure Acute Seizure disorder Acute Condition: STABLE
[2017-12-11 20:35] LABS: HEMOGLOBIN 12.5 g/dL (14.0-18.0); MEAN CELL VOLUME 90.7 fl (80.0-105.0); MEAN CORPUSCULAR HEMOGLOBIN 30.6 pg (25.0-35.0); MEAN CORPUSCULAR HGB CONC 33.7 g/dl (31.0-37.0); MEAN PLATELET VOLUME 9.7 fl (7.0-11.0); RBC 4.09 10^6/uL (3.5-6.1); RED CELL DISTRIBUTION WIDTH 13.5 % (11.5-14.5); WHITE BLOOD COUNT 3.8 10^3/ul (4.5-11.0)
[2017-12-11 20:57] LABS: TROPONIN I < 0.01 ng/mL
[2017-12-11 20:59] LABS: ALB/GLOB RATIO 0.9 (1.1-1.8); ALBUMIN 2.6 g/dL (3.0-4.8); ALT/SGPT 24 U/L (7-56); AST/SGOT 22 U/L (17-59); BLOOD UREA NITROGEN 16 mg/dL (7-21); CALCIUM 7.1 mg/dL (8.4-10.5); GFR AFRICAN-AMERICAN > 60; GFR NON-AFRICAN AMERICAN > 60
--- NOTE | 2017-12-11 22:55 | CP.PCM.HP ---
<Adelaida Renteria - Last Filed: 12/12/17 04:53> History of Present Illness - History of Present Illness History of Present Illness: Adelaida Renteria, PGY1, H&P for Dr Gibbs: CC: witnessed seizure 52 year old male, whose past medical history includes seizure disorder, presents for a seizure episode this evening. Pt was at [employer]. At 5 PM, pt went down to the floor, had tonic clonic seizure (shaking of upper and lower extremities), for 3-4 minutes, witnessed by a friend as per the pt. No urinary/ bowel incontinence, tongue biting. Pt states that he was confused for few minutes after the seizure, but then knew what was happening. Pt is compliant with his seizure meds. His previous seizure episode was a month ago, was admitted to [facility], changed his anti-seizure meds. Pt was doing fine, until this seizure episode. Denies cp, sob, fever, chills, congestion, abdominal pain, nausea, vomiting, urinary symptoms, leg swelling. In ED: hgb 12.5 (prev 13.7), K 3.4, Cl 114, trop negx1. Head CT neg for acute changes. 12 point ROS obtained and neg, except as per HPI. PMD: Dr. Juan Carlos Guillen Neuro: benjamin whittington Medical history: Seizure disorder Surgical History: None Family History: Noncontributory Social History: Former alcohol and illicit drug use Medications: Reviewed, as per MAR Allergies: NKDA Prev visits: 11/23/17 for seizure Present on Admission - Present on Admission Any Indicators Present on Admission: No History of DVT/PE: No History of Uncontrolled Diabetes: No Urinary Catheter: No Decubitus Ulcer Present: No Review of Systems - Review of Systems All systems: reviewed and no additional remarkable complaints except Review of Systems: as per HPI Past Patient History - Infectious Disease Hx of Infectious Diseases: None - Past Social History Smoking Status: Light Smoker < 10 Cigarettes Daily - CARDIAC Hx Cardiac Disorders: No - PULMONARY Hx Respiratory Disorders: No - NEUROLOGICAL Hx Seizures: Yes - HEENT Hx HEENT Problems: No - RENAL Hx Chronic Kidney Disease: No - ENDOCRINE/METABOLIC Hx Endocrine Disorders: No - HEMATOLOGICAL/ONCOLOGICAL Hx Blood Disorders: No - INTEGUMENTARY Hx Dermatological Problems: No - MUSCULOSKELETAL/RHEUMATOLOGICAL Hx Musculoskeletal Disorders: No - GASTROINTESTINAL Hx Gastrointestinal Disorders: No - GENITOURINARY/GYNECOLOGICAL Hx Genitourinary Disorders: No - PSYCHIATRIC Hx Psychophysiologic Disorder: Yes Hx Substance Use: No Other/Comment: Substance abuse-HEROINE COCAINE AND MARIJUANA USE - SURGICAL HISTORY Hx Surgeries: No - ANESTHESIA Hx Anesthesia: No Hx Anesthesia Reactions: No Hx Malignant Hyperthermia: No Meds Allergies/Adverse Reactions: Allergies Allergy/AdvReac Type Severity Reaction Status Date / Time seafood Allergy unknown Uncoded 11/05/17 23:12 Physical Exam - Constitutional Appears: Non-toxic, No Acute Distress - Head Exam Head Exam: ATRAUMATIC, NORMOCEPHALIC - Eye Exam Eye Exam: EOMI, PERRL. absent: Conjunctival injection, Nystagmus, Scleral icterus Pupil Exam: NORMAL ACCOMODATION, PERRL. absent: Irregular, Miosis, Mydriatic, Unequal - ENT Exam ENT Exam: Mucous Membranes Moist Additional comments: no tongue biting noted - Neck Exam Neck exam: Positive for: Full Rom - Respiratory Exam Respiratory Exam: Clear to Auscultation Bilateral, NORMAL BREATHING PATTERN. absent: Accessory Muscle Use, Decreased Breath Sounds, Rales, Rhonchi, Wheezes, Stridor - Cardiovascular Exam Cardiovascular Exam: RRR, +S1, +S2. absent: Systolic Murmur - GI/Abdominal Exam GI & Abdominal Exam: Normal Bowel Sounds, Soft. absent: Distended, Firm, Guarding, Mass, Rigid, Tenderness - Extremities Exam Extremities exam: Positive for: normal inspection. Negative for: calf tenderness, pedal edema - Back Exam Back exam: NORMAL INSPECTION - Neurological Exam Neurological exam: Alert, CN II-XII Intact, Normal Gait, Oriented x3, Reflexes Normal - Expanded Neurological Exam Expanded Patient oriented to: person, place, time Cranial nerves: EOM's Intact: Normal, Facial Palsey w/Forehead Movement: Normal , Facial Palsey w/o Forehead Movement: Normal, Facial Sensation: Normal, Gag Reflex: Normal, Nystagmus: Normal, Tongue Deviation: Normal Ataxia: No Cerebellar Function: Finger to Nose: Normal, Heel to Olivo: Normal, Romberg: Normal Upper motor neuron: Babinski Sign: Normal, Pronator Drift: Normal Sensory exam: Lower Extremity Light Touch: Normal, Upper Extremity Light Touch: Normal Neuro motor strength exam: Left Upper Extremity: 5, Right Upper Extremity: 5, Left Lower Extremity: 5, Right Lower Extremity: 5 DTR: Achilles Tendon Left: 2+, Achilles Tendon Right: 2+, Bicep Left: 2+, Bicep Right: 2+, Patellar Left: 2+, Patellar Right: 2+, Tricep Left: 2+, Tricep Right : 2+ Coma Scale Eye Opening: SPONTANEOUS Coma Scale Motor Response: OBEYS COMMANDS Coma Scale Verbal: Oriented Coma Scale Total: 15 - Psychiatric Exam Psychiatric exam: Normal Affect, Normal Mood - Skin Skin Exam: Dry, Normal Color, Warm Results - Vital Signs Recent Vital Signs: Last Vital Signs Temp 98.8 F 12/11/17 18:29 Pulse 65 12/11/17 21:51 Resp 18 12/11/17 21:51 BP 121/85 12/11/17 21:51 Pulse Ox 100 12/11/17 21:51 - Labs Result Diagrams: 12/11/17 20:00 12/11/17 20:00 Labs: Laboratory Results - last 24 hr 12/11/17 12/11/17 20:00 20:00 WBC 3.8 L RBC 4.09 Hgb 12.5 L Hct 37.1 L MCV 90.7 MCH 30.6 MCHC 33.7 RDW 13.5 Plt Count 150 MPV 9.7 Sodium 141 Potassium 3.4 L Chloride 114 H Carbon Dioxide 22 Anion Gap 8 L BUN 16 Creatinine 0.6 L Est GFR ( Amer) > 60 Est GFR (Non-Af Amer) > 60 Random Glucose 66 L Calcium 7.1 L Total Bilirubin 0.3 AST 22 ALT 24 Alkaline Phosphatase < 20 L Lactate Dehydrogenase 392 Total Creatine Kinase 254 H CK-MB (CK-2) 1.0 CK-MB (CK-2) % Cancelled Troponin I < 0.01 Total Protein 5.4 L Albumin 2.6 L Globulin 2.8 Albumin/Globulin Ratio 0.9 L Assessment & Plan - Assessment and Plan (Free Text) Assessment: 52 year old male with past medical history of seizure disorder, presents with breakthrough seizure: Seizure disorder: head CT neg for acute changes. EKG HR 54. No ST-segment elevations or depressions, no T-wave inversions, normal intervals. Chest X-ray shows no acute disease. Prolactin Serum Depakote level ordered c/w home meds keppra and depakote Ativan prn for seizures zofran prn nausea/vomiting Neurology consult, Dr. Jensen Prophylaxis: Protonix, SCDs Discussed with Dr Gibbs. - Date & Time Date: 12/12/17 Time: 05:01 <Nj Gibbs - Last Filed: 12/12/17 06:57> Results - Vital Signs Recent Vital Signs: Last Vital Signs Temp 97.4 F L 12/12/17 06:00 Pulse 91 H 12/12/17 06:00 Resp 16 12/12/17 06:00 BP 116/77 12/12/17 06:00 Pulse Ox 95 12/12/17 06:00 - Labs Result Diagrams: 12/11/17 20:00 12/11/17 20:00 Attending/Attestation - Attestation I have personally seen and examined this patient.: Yes I have fully participated in the care of the patient.: Yes I have reviewed all pertinent clinical information: Yes Notes (Text): 12/12/17 06:54 Patient was seen when he was in bed # 18 in the ER. Agree with history, physical examination, assessment and plan.
--- NOTE | 2017-12-11 23:39 | CT ---
EXAM: CT Head Without Intravenous Contrast CLINICAL HISTORY: 52 years old, male; Signs and symptoms; Other: Seizure TECHNIQUE: Axial computed tomography images of the head/brain without intravenous contrast. All CT scans at this facility use one or more dose reduction techniques, viz.: automated exposure control; ma/kV adjustment per patient size (including targeted exams where dose is matched to indication; i.e. head); or iterative reconstruction technique. Coronal and sagittal reformatted images were created and reviewed. COMPARISON: CT - HEAD W/O CONTRAST 2017-11-05 16:38 FINDINGS: Brain: There is mild diffuse cerebral atrophy present, consistent with this patient's age. Prominent left inferior basal ganglia perivascular space versus chronic lacunar infarct. No hemorrhage. No significant white matter disease. Ventricles: Unremarkable. No ventriculomegaly. Bones/joints: Unremarkable. No acute fracture. Soft tissues: Unremarkable. Sinuses: Unremarkable as visualized. No acute sinusitis. Mastoid air cells: Unremarkable as visualized. No mastoid effusion. IMPRESSION: No evidence of an acute intracranial abnormality.
[2017-12-12] MEDS ORDERED: Divalproex 500 mg DR(BID formulation) PO STA (00:21)
[2017-12-12] MEDS: Pantoprazole 20 mg EC Tab PO SCH ×2 (05:49→16:09)
[2017-12-12 06:31] VITALS: O2SAT 95
[2017-12-12 06:59] LABS: BASO # 0.02 K/mm3 (0.0-2.0); BASO % 0.4 % (0.0-3.0); EOS # 0.2 (0.0-0.7); EOS % 4.7 % (1.5-5.0); GRAN # 1.24 (1.4-6.5); GRAN % 27.8 % (50.0-68.0); HEMOGLOBIN 13.8 g/dL (14.0-18.0); LYMPH # 2.5 (1.2-3.4); LYMPH % 55.5 % (22.0-35.0); MEAN CELL VOLUME 89.8 fl (80.0-105.0); MEAN CORPUSCULAR HEMOGLOBIN 29.9 pg (25.0-35.0); MEAN CORPUSCULAR HGB CONC 33.3 g/dl (31.0-37.0); MEAN PLATELET VOLUME 9.7 fl (7.0-11.0); MONO # 0.5 (0.1-0.6); MONO % 11.6 % (1.0-6.0); RBC 4.62 10^6/uL (3.5-6.1); RED CELL DISTRIBUTION WIDTH 13.7 % (11.5-14.5); WHITE BLOOD COUNT 4.5 10^3/ul (4.5-11.0)
[2017-12-12 07:01] LABS: ALB/GLOB RATIO 1.1 (1.1-1.8); ALBUMIN 3.2 g/dL (3.0-4.8); ALT/SGPT 28 U/L (7-56); AST/SGOT 24 U/L (17-59); BLOOD UREA NITROGEN 17 mg/dL (7-21); CALCIUM 9.2 mg/dL (8.4-10.5); GFR AFRICAN-AMERICAN > 60; GFR NON-AFRICAN AMERICAN > 60
--- NOTE | 2017-12-12 09:06 | RAD ---
HISTORY: seizure COMPARISON: 05/14/2017 FINDINGS: LUNGS: No active pulmonary disease. PLEURA: No significant pleural effusion identified, no pneumothorax apparent. CARDIOVASCULAR: Normal. OSSEOUS STRUCTURES: No significant abnormalities. VISUALIZED UPPER ABDOMEN: Normal. OTHER FINDINGS: None. IMPRESSION: No active disease.
--- NOTE | 2017-12-12 09:34 | CARD ---
APPROVED REPORT EKG Measurement Heart [id number] <Conclusion> Sinus bradycardia LVH by voltage No change
[2017-12-12] MEDS ORDERED: Divalproex 500 mg DR(BID formulation) PO SCH ×2 (10:00)
[2017-12-12] MEDS ORDERED: Divalproex 250 mg DR (BID formulation) PO SCH (10:36)
[2017-12-12 12:17] VITALS: BP 110/75; RESP 18; TEMP 97.8
[2017-12-12 13:15] LABS: BARBITURATES, UR NEGATIVE (NEGATIVE); BENZODIAZEPINES, UR NEGATIVE (NEGATIVE); OPIATES, UR NEGATIVE (NEGATIVE); PHENCYCLIDINE, UR NEGATIVE (NEGATIVE)
--- NOTE | 2017-12-12 13:21 | CP.PCM.DIS ---
<Chad John - Last Filed: 12/12/17 14:31> Provider - Provider Date of Admission: 12/11/17 22:54 Attending physician: Jos Dhillon MD Primary care physician: Juan Carlos Guillen MD Time Spent in preparation of Discharge (in minutes): 45 Diagnosis - Discharge Diagnosis (1) Seizure disorder Status: Acute Priority: Medium Hospital Course - Lab Results Lab Results: Most Recent Lab Values WBC 4.5 10^3/ul (4.5-11.0) 12/12/17 06:00 RBC 4.62 10^6/uL (3.5-6.1) 12/12/17 06:00 Hgb 13.8 g/dL (14.0-18.0) L 12/12/17 06:00 Hct 41.5 % (42.0-52.0) L 12/12/17 06:00 MCV 89.8 fl (80.0-105.0) 12/12/17 06:00 MCH 29.9 pg (25.0-35.0) 12/12/17 06:00 MCHC 33.3 g/dl (31.0-37.0) 12/12/17 06:00 RDW 13.7 % (11.5-14.5) 12/12/17 06:00 Plt Count 169 10^3/uL (120.0-450.0) 12/12/17 06:00 MPV 9.7 fl (7.0-11.0) 12/12/17 06:00 Gran % 27.8 % (50.0-68.0) L 12/12/17 06:00 Lymph % (Auto) 55.5 % (22.0-35.0) H 12/12/17 06:00 [place] % (Auto) 11.6 % (1.0-6.0) H 12/12/17 06:00 Eos % (Auto) 4.7 % (1.5-5.0) 12/12/17 06:00 Baso % (Auto) 0.4 % (0.0-3.0) 12/12/17 06:00 Gran # 1.24 (1.4-6.5) L 12/12/17 06:00 Lymph # (Auto) 2.5 (1.2-3.4) 12/12/17 06:00 [place] # (Auto) 0.5 (0.1-0.6) 12/12/17 06:00 Eos # (Auto) 0.2 (0.0-0.7) 12/12/17 06:00 Baso # (Auto) 0.02 K/mm3 (0.0-2.0) 12/12/17 06:00 Sodium 141 mmol/L (132-148) 12/12/17 06:00 Potassium 3.9 mmol/L (3.6-5.0) 12/12/17 06:00 Chloride 107 mmol/L (98-107) 12/12/17 06:00 Carbon Dioxide 27 mmol/L (21-33) 12/12/17 06:00 Anion Gap 11 (10-20) 12/12/17 06:00 BUN 17 mg/dL (7-21) 12/12/17 06:00 Creatinine 0.9 mg/dl (0.8-1.5) 12/12/17 06:00 Est GFR ( Amer) > 60 12/12/17 06:00 Est GFR (Non-Af Amer) > 60 12/12/17 06:00 POC Glucose (mg/dL) 76 mg/dL (65-110) 12/11/17 20:22 Random Glucose 95 mg/dL (70-110) 12/12/17 06:00 Calcium 9.2 mg/dL (8.4-10.5) 12/12/17 06:00 Phosphorus 4.5 mg/dL (2.5-4.5) 12/12/17 06:00 Magnesium 2.1 mg/dL (1.7-2.2) 12/12/17 06:00 Total Bilirubin 0.5 mg/dL (0.2-1.3) 12/12/17 06:00 AST 24 U/L (17-59) 12/12/17 06:00 ALT 28 U/L (7-56) 12/12/17 06:00 Alkaline Phosphatase 21 U/L (38-126) L 12/12/17 06:00 Lactate Dehydrogenase 392 U/L (333-699) 12/11/17 20:00 Total Creatine Kinase 254 U/L (35-230) H 12/11/17 20:00 CK-MB (CK-2) 1.0 ng/mL (0.0-3.6) 12/11/17 20:00 CK-MB (CK-2) % Cancelled 12/11/17 20:00 Troponin I < 0.01 ng/mL 12/11/17 20:00 Total Protein 6.3 g/dL (5.8-8.3) 12/12/17 06:00 Albumin 3.2 g/dL (3.0-4.8) 12/12/17 06:00 Globulin 3.1 gm/dL 12/12/17 06:00 Albumin/Globulin Ratio 1.1 (1.1-1.8) 12/12/17 06:00 Prolactin 5.3 ng/mL (3.7-17.9) 12/11/17 20:00 Valproic Acid 34 ug/mL (50.0-100.0) L 12/11/17 20:00 - Hospital Course Hospital Course: Patient is a 52 year old male with past medical history of seizure disorder who was admitted for evaluation and treatment of shaking of upper and lower extremities and loss and confusion. With the use of physical examinations, lab work, and imaging the patient was diagnosed with and treated for seizure like activity. During their hospital stay the patient was seen by neurology and their recommendations were both appreciated and utilized in the care for this patient. Neuro recommended increasing depakote to 750mg TID and follow up outpatient to go over keppra adjustments. During their hospital stay the patient underwent a CT of the head and chest xray which was reviewed, appreciated, and utilized in the management of the patients clinical course. The CT of the head showed no evidence of an acute intracranial abnormality. The chest xray showed no evidence of an acute intracranial abnormality. Patient was treated with antiepileptic medications amongst other empiric/therapeutic medications. At this time the patient is medically stable for discharge. Patient understands and appreciates discharge plan. Patient instructed to follow up with primary care physicians and referrals within three to five days from discharge. Furthermore, the patient is instructed to take medications as prescribed and to return to emergency room for evaluation of intractable headache, fever, chills, dizziness, chest pain, shortness of breath, abdominal pain, nausea, vomiting, diarrhea, constipation, and urinary symptoms. This is a brief summary of the patients hospital course. Please see patient chart for full details. Discharge Exam - Head Exam Head Exam: ATRAUMATIC, NORMOCEPHALIC - Additional Findings Additional findings: - Constitutional Appears: Non-toxic, No Acute Distress - Head Exam Head Exam: ATRAUMATIC, NORMOCEPHALIC - Eye Exam Eye Exam: EOMI, PERRL. - ENT Exam ENT Exam: Mucous Membranes Moist Additional comments: no tongue biting noted - Neck Exam Neck exam: Positive for: Full Rom - Respiratory Exam Respiratory Exam: Clear to Auscultation Bilateral, NORMAL BREATHING PATTERN. absent: Accessory Muscle Use, Decreased Breath Sounds, Rales, Rhonchi, Wheezes, Stridor - Cardiovascular Exam Cardiovascular Exam: RRR, +S1, +S2. absent: Systolic Murmur - GI/Abdominal Exam GI & Abdominal Exam: Normal Bowel Sounds, Soft. absent: Distended, Firm, Guarding, Mass, Rigid, Tenderness - Extremities Exam Extremities exam: Positive for: normal inspection. Negative for: calf tenderness, pedal edema - Back Exam Back exam: NORMAL INSPECTION - Neurological Exam Neurological exam: Patient is awake, alert, responds to verbal stimuli, answers questions appropriately, follows commands, and moves extremities past midline, CN II-XII intact bilaterally - Psychiatric Exam Psychiatric exam: Normal Affect, Normal Mood - Skin Skin Exam: Dry, Normal Color, Warm Discharge Plan - Discharge Medications Prescriptions: Divalproex [Depakote DR (*BID*)] 750 mg PO TID #7 tcp - Follow Up Plan Condition: STABLE Disposition: HOME/ ROUTINE Patient education suggested?: Yes Instructions: Quitting Smoking for Older Adults, Seizures, Adult (DC) Additional Instructions: Patient Instructions: Take medications as prescribed. Follow up with PMD and referrals within three to five days from discharge. Return to the emergency room for evaluation of intractable headache, fever, chills, dizziness, chest pain, shortness of breath, abdominal pain, nausea, vomiting, diarrhea, constipation, and urinary symptoms. Referrals: Wilmer ABDULLAHI,Juan Carlos [Primary Care Provider] - Allan Jensen MD [Staff Provider] - <Jaimee Hernandez - Last Filed: 12/12/17 17:11> Provider - Provider Date of Admission: 12/11/17 22:54 Attending physician: Jos Dhillon MD Primary care physician: Juan Carlos Guillen MD Hospital Course - Lab Results Lab Results: Most Recent Lab Values WBC 4.5 10^3/ul (4.5-11.0) 12/12/17 06:00 RBC 4.62 10^6/uL (3.5-6.1) 12/12/17 06:00 Hgb 13.8 g/dL (14.0-18.0) L 12/12/17 06:00 Hct 41.5 % (42.0-52.0) L 12/12/17 06:00 MCV 89.8 fl (80.0-105.0) 12/12/17 06:00 MCH 29.9 pg (25.0-35.0) 12/12/17 06:00 MCHC 33.3 g/dl (31.0-37.0) 12/12/17 06:00 RDW 13.7 % (11.5-14.5) 12/12/17 06:00 Plt Count 169 10^3/uL (120.0-450.0) 12/12/17 06:00 MPV 9.7 fl (7.0-11.0) 12/12/17 06:00 Gran % 27.8 % (50.0-68.0) L 12/12/17 06:00 Lymph % (Auto) 55.5 % (22.0-35.0) H 12/12/17 06:00 [place] % (Auto) 11.6 % (1.0-6.0) H 12/12/17 06:00 Eos % (Auto) 4.7 % (1.5-5.0) 12/12/17 06:00 Baso % (Auto) 0.4 % (0.0-3.0) 12/12/17 06:00 Gran # 1.24 (1.4-6.5) L 12/12/17 06:00 Lymph # (Auto) 2.5 (1.2-3.4) 12/12/17 06:00 [place] # (Auto) 0.5 (0.1-0.6) 12/12/17 06:00 Eos # (Auto) 0.2 (0.0-0.7) 12/12/17 06:00 Baso # (Auto) 0.02 K/mm3 (0.0-2.0) 12/12/17 06:00 Sodium 141 mmol/L (132-148) 12/12/17 06:00 Potassium 3.9 mmol/L (3.6-5.0) 12/12/17 06:00 Chloride 107 mmol/L (98-107) 12/12/17 06:00 Carbon Dioxide 27 mmol/L (21-33) 12/12/17 06:00 Anion Gap 11 (10-20) 12/12/17 06:00 BUN 17 mg/dL (7-21) 12/12/17 06:00 Creatinine 0.9 mg/dl (0.8-1.5) 12/12/17 06:00 Est GFR ( Amer) > 60 12/12/17 06:00 Est GFR (Non-Af Amer) > 60 12/12/17 06:00 POC Glucose (mg/dL) 76 mg/dL (65-110) 12/11/17 20:22 Random Glucose 95 mg/dL (70-110) 12/12/17 06:00 Calcium 9.2 mg/dL (8.4-10.5) 12/12/17 06:00 Phosphorus 4.5 mg/dL (2.5-4.5) 12/12/17 06:00 Magnesium 2.1 mg/dL (1.7-2.2) 12/12/17 06:00 Total Bilirubin 0.5 mg/dL (0.2-1.3) 12/12/17 06:00 AST 24 U/L (17-59) 12/12/17 06:00 ALT 28 U/L (7-56) 12/12/17 06:00 Alkaline Phosphatase 21 U/L (38-126) L 12/12/17 06:00 Lactate Dehydrogenase 392 U/L (333-699) 12/11/17 20:00 Total Creatine Kinase 254 U/L (35-230) H 12/11/17 20:00 CK-MB (CK-2) 1.0 ng/mL (0.0-3.6) 12/11/17 20:00 CK-MB (CK-2) % Cancelled 12/11/17 20:00 Troponin I < 0.01 ng/mL 12/11/17 20:00 Total Protein 6.3 g/dL (5.8-8.3) 12/12/17 06:00 Albumin 3.2 g/dL (3.0-4.8) 12/12/17 06:00 Globulin 3.1 gm/dL 12/12/17 06:00 Albumin/Globulin Ratio 1.1 (1.1-1.8) 12/12/17 06:00 Prolactin 5.3 ng/mL (3.7-17.9) 12/11/17 20:00 Urine Opiates Screen Negative (NEGATIVE) 12/12/17 12:40 Urine Methadone Screen Negative (NEGATIVE) 12/12/17 12:40 Ur Barbiturates Screen Negative (NEGATIVE) 12/12/17 12:40 Valproic Acid 34 ug/mL (50.0-100.0) L 12/11/17 20:00 Ur Phencyclidine Scrn Negative (NEGATIVE) 12/12/17 12:40 Ur Amphetamines Screen Negative (NEGATIVE) 12/12/17 12:40 U Benzodiazepines Scrn Negative (NEGATIVE) 12/12/17 12:40 U Oth Cocaine Metabols Negative (NEGATIVE) 12/12/17 12:40 U Cannabinoids Screen Negative (NEGATIVE) 12/12/17 12:40 Attending/Attestation - Attestation I have personally seen and examined this patient.: Yes I have fully participated in the care of the patient.: Yes I have reviewed all pertinent clinical information, including history, physical exam and plan: Yes Notes (Text): I have seen and examined the patient at bedside. Agree with the above note outlined by the resident. Vitals, labs and imaging personally reviewed by me. Discussed with neurologist in detail. Plan to increase depakote dosage to 750 TID. Upon discharge patient will follow up with Dr Rangel. Dr Jaimee hernandez
--- NOTE | 2017-12-12 14:13 | CP.PCM.CON ---
<RickieQamardodie - Last Filed: 12/12/17 14:05> History of Present Illness - History of Present Illness History of Present Illness: Neurology Consult - Dr. Jensen 52 AA M with a PMHx of seizure disorder and polysubstance abuse presented to the [facility] [place] [facility] ED s/p witnessed seizure. Pt states that he was helping set up for an AA meeting with his friend when suddenly experience a tonic-clonic seizure lasting for approximately 3-4 mins, without loss of bladder control or tongue biting. Pt said he has been complaint with his anti-seizure meds and had visited his PMD where keppra was added recently after experiencing an increased frequency of seizures. Pt was last hospitalized last month for his last seizure. Pt was seen and examined at bedside. He has no complaints at this time and denied any further episodes of seizures. Pt is otherwise at his baseline. Pt denied fever, chills, sob, chest pains, abdominal pains, nausea, vomiting, diarrhea, constipation. PMHx: Epilepsy SHx: Denied FamHx: Noncontributory SHx: Former alcohol, cocaine, and heroin abuser. Pt denied tobacco Meds: Keppra, depakote Allergies: NKDA Review of Systems - Review of Systems Review of Systems: as per HPI otherwise Past Patient History - Infectious Disease Hx of Infectious Diseases: None - Past Social History Smoking Status: Light Smoker < 10 Cigarettes Daily - CARDIAC Hx Cardiac Disorders: No - PULMONARY Hx Respiratory Disorders: No - NEUROLOGICAL Hx Seizures: Yes - HEENT Hx HEENT Problems: No - RENAL Hx Chronic Kidney Disease: No - ENDOCRINE/METABOLIC Hx Endocrine Disorders: No - HEMATOLOGICAL/ONCOLOGICAL Hx Blood Disorders: No - INTEGUMENTARY Hx Dermatological Problems: No - MUSCULOSKELETAL/RHEUMATOLOGICAL Hx Musculoskeletal Disorders: No - GASTROINTESTINAL Hx Gastrointestinal Disorders: No - GENITOURINARY/GYNECOLOGICAL Hx Genitourinary Disorders: No - PSYCHIATRIC Hx Psychophysiologic Disorder: Yes Hx Substance Use: No Other/Comment: Substance abuse-HEROINE COCAINE AND MARIJUANA USE - SURGICAL HISTORY Hx Surgeries: No - ANESTHESIA Hx Anesthesia: No Hx Anesthesia Reactions: No Hx Malignant Hyperthermia: No Meds Home Medications: Home Medication List Medication Instructions Recorded Confirmed Type Divalproex [Depakowallace MCDUFFIE (*BID*)] 750 mg PO TID #7 tcp 12/12/17 Rx Allergies/Adverse Reactions: Allergies Allergy/AdvReac Type Severity Reaction Status Date / Time seafood Allergy unknown Uncoded 11/05/17 23:12 - Medications Medications: Current Medications Divalproex Sodium (Depakote Dr (*Bid*)) 750 mg PO TID [facility] PRN Reason: Protocol Last Admin: 12/12/17 13:32 Dose: 750 mg Levetiracetam (Keppra) 500 mg PO BID [facility] Last Admin: 12/12/17 09:12 Dose: 500 mg Lorazepam (Ativan) 3 mg IVP Q6H PRN; Protocol PRN Reason: Seizure activity Ondansetron HCl (Zofran Inj) 4 mg IVP Q6H PRN PRN Reason: Nausea/Vomiting Pantoprazole Sodium (Protonix Ec Tab) 20 mg PO 0600,1600 [facility] Last Admin: 12/12/17 05:49 Dose: 20 mg Physical Exam - Constitutional Appears: No Acute Distress - Head Exam Head Exam: ATRAUMATIC, NORMAL INSPECTION, NORMOCEPHALIC - Eye Exam Eye Exam: EOMI, Normal appearance, PERRL Pupil Exam: NORMAL ACCOMODATION, PERRL - ENT Exam ENT Exam: Mucous Membranes Moist, Normal Exam - Respiratory Exam Respiratory Exam: Clear to Auscultation Bilateral, NORMAL BREATHING PATTERN - Cardiovascular Exam Cardiovascular Exam: REGULAR RHYTHM, +S1, +S2 - GI/Abdominal Exam GI & Abdominal Exam: Normal Bowel Sounds, Soft. absent: Tenderness - Neurological Exam Neurological exam: Alert, CN II-XII Intact, Normal Gait, Oriented x3, Reflexes Normal - Psychiatric Exam Psychiatric exam: Normal Affect, Normal Mood - Skin Skin Exam: Dry, Intact, Normal Color, Warm Results - Vital Signs Recent Vital Signs: Last Vital Signs Temp 97.8 F 12/12/17 12:00 Pulse 52 L 12/12/17 12:00 Resp 18 12/12/17 12:00 BP 110/75 12/12/17 12:00 Pulse Ox 95 12/12/17 06:00 - Labs Result Diagrams: 12/12/17 06:00 12/12/17 06:00 Labs: Laboratory Results - last 24 hr 12/12/17 12/12/17 12/12/17 06:00 06:00 12:40 WBC 4.5 RBC 4.62 Hgb 13.8 L Hct 41.5 L MCV 89.8 MCH 29.9 MCHC 33.3 RDW 13.7 Plt Count 169 MPV 9.7 Gran % 27.8 L Lymph % (Auto) 55.5 H [place] % (Auto) 11.6 H Eos % (Auto) 4.7 Baso % (Auto) 0.4 Gran # 1.24 L Lymph # (Auto) 2.5 [place] # (Auto) 0.5 Eos # (Auto) 0.2 Baso # (Auto) 0.02 Sodium 141 Potassium 3.9 Chloride 107 Carbon Dioxide 27 Anion Gap 11 BUN 17 Creatinine 0.9 Est GFR ( Amer) > 60 Est GFR (Non-Af Amer) > 60 Random Glucose 95 Calcium 9.2 Phosphorus 4.5 Magnesium 2.1 Total Bilirubin 0.5 AST 24 ALT 28 Alkaline Phosphatase 21 L Total Protein 6.3 Albumin 3.2 Globulin 3.1 Albumin/Globulin Ratio 1.1 Urine Opiates Screen Negative Urine Methadone Screen Negative Ur Barbiturates Screen Negative Ur Phencyclidine Scrn Negative Ur Amphetamines Screen Negative U Benzodiazepines Scrn Negative U Oth Cocaine Metabols Negative U Cannabinoids Screen Negative Assessment & Plan - Assessment and Plan (Free Text) Assessment: 52 year old male with past medical history of epilepsy presenting to the [facility] ED with a breakthrough seizure. UDS was negative. Valproic acid levels were low, consider increasing depakote from 500mg TID, to 750mg TID pending confirmation of dosage. Leviracetam levels pending, will follow up. Head CT was negative for any acute intracranial pathology. EKG HR 54. No ST-segment elevations or depressions, no T-wave inversions, normal intervals. Chest X-ray shows no acute cardiopulmonary disease. Pt will need to follow up with neurology outpatient on a regular basis. <Allan Jensen - Last Filed: 12/12/17 15:27> Meds - Medications Medications: Current Medications Divalproex Sodium (Depakote Dr (*Bid*)) 750 mg PO TID [facility] PRN Reason: Protocol Last Admin: 12/12/17 13:32 Dose: 750 mg Levetiracetam (Keppra) 500 mg PO BID [facility] Last Admin: 12/12/17 09:12 Dose: 500 mg Lorazepam (Ativan) 3 mg IVP Q6H PRN; Protocol PRN Reason: Seizure activity Ondansetron HCl (Zofran Inj) 4 mg IVP Q6H PRN PRN Reason: Nausea/Vomiting Pantoprazole Sodium (Protonix Ec Tab) 20 mg PO 0600,1600 [facility] Last Admin: 12/12/17 05:49 Dose: 20 mg Results - Vital Signs Recent Vital Signs: Last Vital Signs Temp 97.8 F 12/12/17 12:00 Pulse 52 L 12/12/17 12:00 Resp 18 12/12/17 12:00 BP 110/75 12/12/17 12:00 Pulse Ox 95 12/12/17 06:00 - Labs Result Diagrams: 12/12/17 06:00 12/12/17 06:00 Labs: Laboratory Results - last 24 hr 12/12/17 12/12/17 12/12/17 06:00 06:00 12:40 WBC 4.5 RBC 4.62 Hgb 13.8 L Hct 41.5 L MCV 89.8 MCH 29.9 MCHC 33.3 RDW 13.7 Plt Count 169 MPV 9.7 Gran % 27.8 L Lymph % (Auto) 55.5 H [place] % (Auto) 11.6 H Eos % (Auto) 4.7 Baso % (Auto) 0.4 Gran # 1.24 L Lymph # (Auto) 2.5 [place] # (Auto) 0.5 Eos # (Auto) 0.2 Baso # (Auto) 0.02 Sodium 141 Potassium 3.9 Chloride 107 Carbon Dioxide 27 Anion Gap 11 BUN 17 Creatinine 0.9 Est GFR ( Amer) > 60 Est GFR (Non-Af Amer) > 60 Random Glucose 95 Calcium 9.2 Phosphorus 4.5 Magnesium 2.1 Total Bilirubin 0.5 AST 24 ALT 28 Alkaline Phosphatase 21 L Total Protein 6.3 Albumin 3.2 Globulin 3.1 Albumin/Globulin Ratio 1.1 Urine Opiates Screen Negative Urine Methadone Screen Negative Ur Barbiturates Screen Negative Ur Phencyclidine Scrn Negative Ur Amphetamines Screen Negative U Benzodiazepines Scrn Negative U Oth Cocaine Metabols Negative U Cannabinoids Screen Negative Attending/Attestation - Attestation I have personally seen and examined this patient.: Yes I have fully participated in the care of the patient.: Yes I have reviewed all pertinent clinical information: Yes
[2017-12-12 16:26] VITALS: PULSE 67
== END 2017-12-12 16:55 | disposition home or self-care (01) ==
LOC: ED 18:29 → ERH 22:54 → 3RSO 12-12 00:15
PROVIDERS: ADMIT Internal Medicine; ATTEND Internal Medicine
DX: G40.909 Epilepsy, unspecified, not intractable, without status epilepticus (principal); F11.10 Opioid abuse, uncomplicated; F14.10 Cocaine abuse, uncomplicated; F12.10 Cannabis abuse, uncomplicated; Z87.891 Personal history of nicotine dependence
CPT/HCPCS: 36415; 70450; 71045; 80053; 80164; 80324; 80345; 80346; 80349; 80353; 80358; 80361; 82550; 82553; 82948; 83615; 83735; 83992; 84100; 84146; 84484; 85025; 85027; 93005; 99285; G0378

== ENCOUNTER 2017-12-17 12:53 | Emergency (ER) | payer MEDICAID ==
[2017-12-17 13:07] VITALS: BMI 27.7
[2017-12-17 13:08] VITALS: RESP 18
--- NOTE | 2017-12-17 13:20 | ED PDOC ---
Arrival/HPI - General Chief Complaint: Seizure Time Seen by Provider: 12/17/17 13:09 Historian: Patient - History of Present Illness Narrative History of Present Illness (Text): 12/17/17 13:14 A 52 year old male, whose past medical history includes seizure disorder, presents to the emergency department complaining of seizure episode. Patient states has not experienced any seizures since last week. Patient reports feeling seizure episode coming and attempted to fight seizure. Eventually experienced episode and is uncertain of any head trauma. Patient denies any tongue bite, self-urination, fever, cough, or any other complaints at this time. Also, patient mentions taking Depakote 750 mg 3 times daily, previously had 500 mg, prescribed by PMD. Last dose was this morning. PMD: Dr. Carranza Past Medical History - Provider Review Nursing Documentation Reviewed: Yes - Infectious Disease Hx of Infectious Diseases: None - Cardiac Hx Cardiac Disorders: No - Pulmonary Hx Respiratory Disorders: No - Neurological Hx Seizures: Yes - HEENT Hx HEENT Disorder: No - Renal Hx Renal Disorder: No - Endocrine/Metabolic Hx Endocrine Disorders: No - Hematological/Oncological Hx Blood Disorders: No - Integumentary Hx Dermatological Disorder: No - Musculoskeletal/Rheumatological Hx Musculoskeletal Disorders: No - Gastrointestinal Hx Gastrointestinal Disorders: No - Genitourinary/Gynecological Hx Genitourinary Disorders: No - Psychiatric Hx Psychophysiologic Disorder: Yes Hx Substance Use: No Other/Comment: Substance abuse-HEROINE COCAINE AND MARIJUANA USE - Anesthesia Hx Anesthesia: No Hx Anesthesia Reactions: No Hx Malignant Hyperthermia: No Family/Social History - Physician Review Nursing Documentation Reviewed: Yes Family/Social History: No Known Family HX Smoking Status: Light Smoker < 10 Cigarettes Daily Hx Alcohol Use: No Hx Substance Use: No Allergies/Home Meds Allergies/Adverse Reactions: Allergies seafood Allergy (Uncoded 12/17/17 13:01) unknown Home Medications: Home Meds Medication Instructions Recorded Confirmed levETIRAcetam [Keppra] 500 mg PO BID 12/17/17 12/17/17 Review of Systems - Physician Review All systems were reviewed & negative as marked: Yes - Review of Systems Constitutional: Other (questionable head trauma, as patient is uncertain of any definite head trauma.). absent: Fevers Respiratory: absent: Cough Genitourinary Male: absent: Other (no self-urination) Musculoskeletal: absent: Other (no tongue bite) Neurological: Seizure Physical Exam Vital Signs Reviewed: Yes Vital Signs Temp Pulse Resp BP Pulse Ox 12/17/17 16:38 98.5 F 79 18 125/84 96 12/17/17 12:54 98.6 F 80 18 132/78 95 Temperature: Afebrile Blood Pressure: Normal Pulse: Regular Respiratory Rate: Normal Appearance: Positive for: Well-Appearing Pain Distress: None Mental Status: Positive for: Alert and Oriented X 3 - Systems Exam Head: Present: Atraumatic, Normocephalic Pupils: Present: PERRL Extroacular Muscles: Present: EOMI Conjunctiva: Present: Normal Mouth: Present: Moist Mucous Membranes, Normal Tounge (no tongue bite) Pharnyx: Present: Normal Neck: Present: Normal Range of Motion Respiratory/Chest: Present: Clear to Auscultation, Good Air Exchange. No: Respiratory Distress, Accessory Muscle Use Cardiovascular: Present: Regular Rate and Rhythm, Normal S1, S2. No: Murmurs Abdomen: No: Tenderness, Distention, Peritoneal Signs Back: Present: Normal Inspection Upper Extremity: Present: Normal Inspection. No: Cyanosis, Edema Lower Extremity: Present: Normal Inspection. No: Edema Neurological: Present: GCS=15, CN II-XII Intact, Speech Normal, Motor Func Grossly Intact, Normal Sensory Function, Normal Cerebellar Funct, Norm Deep Tendon Reflexes, Gait Normal, Memory Normal, Normal 2Pt Descrimination Skin: Present: Warm, Dry, Normal Color. No: Rashes Psychiatric: Present: Alert, Oriented x 3, Normal Insight, Normal Concentration Medical Decision Making ED Course and Treatment: 12/17/17 13:18 Impression: 52 year old male with seizure episode. Physical exam shows no tongue bite, normal neuro examination. Differential Diagnosis included but are not limited to: Seizure. Plan: -- EKG -- Head CT -- Labs -- Sodium Chloride IV Fluids -- Urinalysis -- Reassess and disposition Prior Visits: Notes and results from previous visits were reviewed. Patient was last seen in the emergency department on 12/11/2017 for sudden seizure. Patient was discharged home. Progress Notes: EKG: Ordered, reviewed, and independently interpreted the EKG. Rate : 63 BPM Rhythm : NSR Interpretation : No ST-segment elevations or depressions, no T-wave inversions, normal intervals. Comparison : No previous EKG for comparison.' 12/17/2017 14:[address] IMPRESSION: No acute intracranial hemorrhage. Suspect mild chronic periventricular white matter ischemic changes. Mild volume loss. Dictator: Tom Estrada 12/17/17 16:02 Patient comfortable. No seizures in the ED. 12/17/17 16:28 No active seizures observed in the emergency room. On re-evaluation, patient feels better and is in no acute distress. Patient denies any headache, weakness or numbness. Case discussed with neurologist Dr. Michelle, who recommends to increase Depakote dosage to 1000 mg BID and have patient follow up outpatient in her office in 2 weeks. I have discussed the results and plan with the patient , who expresses understanding. Patient in agreement with plan to be discharged home. Patient is stable for discharge. Patient was instructed to follow up with neurologist or return if symptoms worsen or new concerning symptoms arise. - Lab Interpretations Lab Results: 12/17/17 13:30 12/17/17 13:30 Lab Results 12/17/17 16:24: Urine Opiates Screen Negative, Urine Methadone Screen Negative, Ur Barbiturates Screen Negative, Ur Phencyclidine Scrn Negative, Ur Amphetamines Screen Negative, U Benzodiazepines Scrn Negative, U Oth Cocaine Metabols Negative, U Cannabinoids Screen Negative 12/17/17 16:24: Urine Color Dark yellow, Urine Appearance Clear, Urine pH 7.0, Ur Specific [place] 1.020, Urine Protein Negative, Urine Glucose (UA) Negative, Urine Ketones 15 H, Urine Blood Negative, Urine Nitrate Negative, Urine Bilirubin Negative, Urine Urobilinogen 1.0 H, Ur Leukocyte Esterase Negative 12/17/17 13:33: POC Glucose (mg/dL) 78 12/17/17 13:30: Valproic Acid 34 L 12/17/17 13:30: Alcohol, Quantitative < 10 12/17/17 13:30: Sodium 143, Potassium 3.8, Chloride 106, Carbon Dioxide 27, Anion Gap 14, BUN 17, Creatinine 1.0, Est GFR ( Amer) > 60, Est GFR (Non- Af Amer) > 60, Random Glucose 78, Calcium 9.3, Total Bilirubin 0.5, AST 30, ALT 28, Alkaline Phosphatase 26 L D, Total Protein 7.1, Albumin 4.0, Globulin 3.1, Albumin/Globulin Ratio 1.3 12/17/17 13:30: WBC 3.8 L, RBC 4.56, Hgb 14.0, Hct 41.2 L, MCV 90.4, MCH 30.7, MCHC 34.0, RDW 13.7, Plt Count 174, MPV 9.7, Gran % 51.0, Lymph % (Auto) 38.7 H , [place] % (Auto) 8.4 H, Eos % (Auto) 1.6, Baso % (Auto) 0.3, Gran # 1.95, Lymph # (Auto) 1.5, [place] # (Auto) 0.3, Eos # (Auto) 0.1, Baso # (Auto) 0.01 I have reviewed the lab results: Yes - RAD Interpretation Radiology Orders: 12/17/17 13:18 HEAD W/O CONTRAST [CT] Stat - Medication Orders Current Medication Orders: Discontinued Medications Sodium Chloride (Sodium Chloride 0.9%) 1,000 mls @ 100 mls/hr IV .Q10H REGINA Last Admin: 12/17/17 13:32 Dose: 100 mls/hr eMAR Start Stop Document 12/17/17 13:32 SRE (Rec: 12/17/17 13:32 [id number]) Intravenous Solution Start Date 12/17/17 Start Time 13:32 Valproate Sodium (Depakene Cap) 1,000 mg PO STAT STA Stop: 12/17/17 16:26 Last Admin: 12/17/17 16:36 Dose: 1,000 mg - Scribe Statement The provider has reviewed the documentation as recorded by the Shane Jules Provider Shane Attestation: All medical record entries made by the Shane were at my direction and personally dictated by me. I have reviewed the chart and agree that the record accurately reflects my personal performance of the history, physical exam, medical decision making, and the department course for this patient. I have also personally directed, reviewed, and agree with the discharge instructions and disposition. Disposition/Present on Arrival - Present on Arrival Any Indicators Present on Arrival: No History of DVT/PE: No History of Uncontrolled Diabetes: No Urinary Catheter: No History of Decub. Ulcer: No History Surgical Site Infection Following: None - Disposition Have Diagnosis and Disposition been Completed?: Yes Diagnosis: Seizure Disposition: HOME/ ROUTINE Disposition Time: 16:03 Patient Plan: Discharge Condition: IMPROVED Discharge Instructions (ExitCare): Seizures, Adult (DC) Additional Instructions: Ms Tracey, thank you for letting us take care of you today. Your provider was Dr. Goldman. You were treated for Seizures. The emergency medical care you received today was directed at your acute symptoms. If you were prescribed any medication, please fill it and take as directed. It may take several days for your symptoms to resolve. Return to the Emergency Department if your symptoms worsen, do not improve, or if you have any other problems. Please contact your doctor or call one of the physicians/clinics you have been referred to that are listed on the Patient Visit Information form that is included in your discharge packet. Bring any paperwork you were given at discharge with you along with any medications you are taking to your follow up visit. Our treatment cannot replace ongoing medical care by a primary care provider (PCP) outside of the emergency department. Thank you for allowing the [facility] team to be part of your care today. If you had an X-Ray or CT scan: A Radiologist will review the ED reading if any change in treatment is needed we will contact you. If you had a blood, urine, or wound culture: It will take several days for the results, if any change in treatment is needed we will contact you. If you had an STI test: It will take 48 hours for the results. Please call after 1 week if you have not heard back. Prescriptions: Divalproex [Depakote DR(*BID*)] 1,000 mg PO BID #60 ect Referrals: Laine Barrera MD [Staff Provider] - Follow up with primary Gissel Michelle MD [Staff Provider] - Follow up with primary Forms: [employer] (Bel[place]ian), WORK NOTE
[2017-12-17] MEDS ORDERED: Sodium Chloride 0.9% 1,000 ML IV SCH (13:30)
[2017-12-17 13:51] LABS: BASO # 0.01 K/mm3 (0.0-2.0); BASO % 0.3 % (0.0-3.0); EOS # 0.1 (0.0-0.7); EOS % 1.6 % (1.5-5.0); GRAN # 1.95 (1.4-6.5); LYMPH # 1.5 (1.2-3.4); LYMPH % 38.7 % (22.0-35.0); MEAN CELL VOLUME 90.4 fl (80.0-105.0); MEAN CORPUSCULAR HEMOGLOBIN 30.7 pg (25.0-35.0); MEAN PLATELET VOLUME 9.7 fl (7.0-11.0); MONO # 0.3 (0.1-0.6); MONO % 8.4 % (1.0-6.0); RBC 4.56 10^6/uL (3.5-6.1); RED CELL DISTRIBUTION WIDTH 13.7 % (11.5-14.5); WHITE BLOOD COUNT 3.8 10^3/ul (4.5-11.0)
[2017-12-17 14:02] LABS: ALB/GLOB RATIO 1.3 (1.1-1.8); ALT/SGPT 28 U/L (7-56); AST/SGOT 30 U/L (17-59); BLOOD UREA NITROGEN 17 mg/dL (7-21); CALCIUM 9.3 mg/dL (8.4-10.5); GFR AFRICAN-AMERICAN > 60; GFR NON-AFRICAN AMERICAN > 60
--- NOTE | 2017-12-17 14:31 | CT ---
PROCEDURE: CT HEAD WITHOUT CONTRAST. HISTORY: Seizure. COMPARISON: None available. TECHNIQUE: Axial computed tomography images were obtained through the head/brain without intravenous contrast. Radiation dose: Total exam DLP = 960.93 mGy-cm. This CT exam was performed using one or more of the following dose reduction techniques: Automated exposure control, adjustment of the mA and/or kV according to patient size, and/or use of iterative reconstruction technique. FINDINGS: HEMORRHAGE: No acute parenchymal, subarachnoid nor extra-axial hemorrhage. BRAIN: Suspect mild diffuse/confluent chronic periventricular white matter ischemic changes are felt to be present. . There is a very tiny elliptical shaped focus low attenuation in the left frontal white matter the near the frontal horn that probably represents volume averaging of anterior margin of the circular sulcus. Dilated perivascular space left inferior basal ganglia unchanged. Mild generalized volume loss. Re- demonstrated is a prominent on dural base calcification within the left parasagittal anterior margin of the interhemispheric fissure with a smaller dural base calcification more posteriorly located. VENTRICLES: No obstructive hydrocephalus. CALVARIUM: There are no acute calvarial fractures. PARANASAL SINUSES: Unremarkable as visualized. No significant inflammatory changes. MASTOID AIR CELLS: Unremarkable as visualized. No inflammatory changes. OTHER FINDINGS: Orbits and contents unremarkable. Re- demonstrated IMPRESSION: No acute intracranial hemorrhage. Suspect mild chronic periventricular white matter ischemic changes. Mild volume loss.
[2017-12-17 16:39] VITALS: BP 125/84; PULSE 79; TEMP 98.5; O2SAT 96
[2017-12-17 16:43] LABS: URINE BILIRUBIN NEGATIVE (NEGATIVE); URINE BLOOD NEGATIVE (NEGATIVE); URINE GLUCOSE (UA) NEGATIVE (NEGATIVE); URINE LEUKOCYTE ESTERASE NEGATIVE Leu/uL (NEGATIVE); URINE PROTEIN NEGATIVE mg/dL (<30 mg/dL)
[2017-12-17 16:44] LABS: URINE APPEARANCE CLEAR (CLEAR); URINE COLOR DARK YELLOW (YELLOW)
[2017-12-17 16:50] LABS: BARBITURATES, UR NEGATIVE (NEGATIVE)
[2017-12-17 16:52] LABS: BENZODIAZEPINES, UR NEGATIVE (NEGATIVE); OPIATES, UR NEGATIVE (NEGATIVE); PHENCYCLIDINE, UR NEGATIVE (NEGATIVE)
--- NOTE | 2017-12-17 22:10 | CARD ---
APPROVED REPORT EKG Measurement Heart [id number] <Conclusion> Normal sinus rhythm Minimal voltage criteria for LVH, may be normal variant Borderline ECG
== END 2017-12-17 16:40 | disposition home or self-care (01) ==
LOC: ED 12:53
DX: G40.909 Epilepsy, unspecified, not intractable, without status epilepticus (principal); F17.210 Nicotine dependence, cigarettes, uncomplicated
CPT/HCPCS: 70450; 80053; 80164; 80320; 80324; 80345; 80346; 80349; 80353; 80358; 80361; 81003; 82948; 83992; 85025; 93005; 99285; J7040

== ENCOUNTER 2018-01-06 18:15 | Emergency (ER) | payer MEDICAID ==
[2018-01-06 18:16] VITALS: BMI 27.7
[2018-01-06 18:24] VITALS: O2SAT 99
--- NOTE | 2018-01-06 18:47 | ED PDOC ---
Arrival/HPI - General Chief Complaint: Seizure Time Seen by Provider: 01/06/18 18:22 Historian: Patient - History of Present Illness Narrative History of Present Illness (Text): 01/06/18 18:22 A 52 year old male, whose past medical history includes seizure disorder, presents to the emergency department complaining of a witnessed seizure. Patient [place] was [place] the park and had a seizure episode. Patient reports he takes Keppra and Depakote daily. Patient denies any appetite changes, fever, or any other complaints at this time. Patient also denies any alcohol abuse. Patient is uncertain if he has up-to-date tetanus shot. Patient also experiencing some right hand pain s/p seizure episode. PMD: Dr. Carranza Symptom Onset: Sudden Symptom Course: Improving Activities at Onset: Light Context: Other (Park) Past Medical History - Provider Review Nursing Documentation Reviewed: Yes - Infectious Disease Hx of Infectious Diseases: None - Cardiac Hx Cardiac Disorders: No - Pulmonary Hx Respiratory Disorders: No - Neurological Hx Seizures: Yes - HEENT Hx HEENT Disorder: No - Renal Hx Renal Disorder: No - Endocrine/Metabolic Hx Endocrine Disorders: No - Hematological/Oncological Hx Blood Disorders: No - Integumentary Hx Dermatological Disorder: No - Musculoskeletal/Rheumatological Hx Musculoskeletal Disorders: No - Gastrointestinal Hx Gastrointestinal Disorders: No - Genitourinary/Gynecological Hx Genitourinary Disorders: No - Psychiatric Hx Psychophysiologic Disorder: Yes Hx Substance Use: No Other/Comment: Substance abuse-HEROINE COCAINE AND MARIJUANA USE - Anesthesia Hx Anesthesia: No Hx Anesthesia Reactions: No Hx Malignant Hyperthermia: No Family/Social History - Physician Review Nursing Documentation Reviewed: Yes Family/Social History: No Known Family HX Smoking Status: Light Smoker < 10 Cigarettes Daily Hx Alcohol Use: No Hx Substance Use: No Allergies/Home Meds Allergies/Adverse Reactions: Allergies seafood Allergy (Uncoded 12/17/17 13:01) unknown Home Medications: Home Meds Medication Instructions Recorded Confirmed levETIRAcetam [Keppra] 500 mg PO BID 12/17/17 12/17/17 Review of Systems - Physician Review All systems were reviewed & negative as marked: Yes - Review of Systems Constitutional: absent: Fevers Gastrointestinal: absent: Appetite Changes Genitourinary Male: absent: Other (no self-urination) Musculoskeletal: Other (+right hand pain) Neurological: Seizure (no tongue bite) Physical Exam Vital Signs Reviewed: Yes Vital Signs Temp Pulse Resp BP Pulse Ox 01/06/18 22:15 98 F 88 16 120/76 99 01/06/18 20:05 88 18 120/76 99 01/06/18 18:16 98.2 F 91 H 21 144/73 99 Temperature: Afebrile Blood Pressure: Normal Pulse: Regular Respiratory Rate: Normal Appearance: Positive for: Well-Appearing Pain Distress: None Mental Status: Positive for: Alert and Oriented X 3 Finger Stick Blood Glucose: 125 - Systems Exam Head: Present: Atraumatic, Normocephalic Pupils: Present: PERRL Extroacular Muscles: Present: EOMI Conjunctiva: Present: Normal Mouth: Present: Normal Tounge (no tongue bite) Neck: Present: Normal Range of Motion Respiratory/Chest: Present: Clear to Auscultation, Good Air Exchange. No: Respiratory Distress, Accessory Muscle Use Cardiovascular: Present: Regular Rate and Rhythm, Normal S1, S2. No: Murmurs Abdomen: No: Tenderness, Distention, Peritoneal Signs Upper Extremity: Present: Normal ROM, NORMAL PULSES, Neurovascularly Intact, Capillary Refill < 2s, Other (abrasion to right hand). No: Swelling, Erythema, Deformity Lower Extremity: Present: Normal Inspection. No: Edema Neurological: Present: GCS=15, CN II-XII Intact, Speech Normal Skin: Present: Warm, Dry, Normal Color. No: Rashes Psychiatric: Present: Alert, Oriented x 3, Normal Insight, Normal Concentration Medical Decision Making ED Course and Treatment: 01/06/18 18:27 Impression: 52 year old male brought in for witnesses seizure. Physical exam shows abrasion to right hand; no tongue bite; no self-urination. Differential Diagnosis included but are not limited to: Seizure Plan: - -EKG -- Head CT -- Right Hand X-Ray -- Labs -- Fingerstick -- Reassess and disposition Prior Visits: Notes and results from previous visits were reviewed. Patient was last seen in the emergency department on 12/17/2017 for seizure episode. Patient was discharged home. Progress Notes: EKG: Ordered, reviewed, and independently interpreted the EKG. Rate : 85 BPM Rhythm : NSR Interpretation : No ST-segment elevations or depressions, no T-wave inversions, normal intervals. Comparison : No previous EKG for comparison. 01/06/2018 21:[address] FINDINGS: Brain: Mild atrophy. No intracranial hemorrhage. No mass. Minimal decreased attenuation within periventricular white matter. Dilated perivascular space vs chronic lacunar infarct about LEFT basal ganglia. No edema. Ventricles: No hydrocephalus. Bones/joints: No acute fracture. Soft tissues: Unremarkable. Sinuses: Scattered minimal mucosal thickening. Mastoid air cells: No mastoid effusion. Orbits: Unremarkable as visualized. IMPRESSION: 1. No intracranial hemorrhage. 2. Nonspecific white matter changes. 3. Incidental/non-acute findings are described above. Dictator: Bart Mohr MD 22:15 - Case was discussed with Dr. Jensen, Neurology transition teacher. He recommends increasing the patients Keppra to 1000mg BID and continue Depakote. He says patient can f/u with him as an outpatient. Xrays negative for fracture. Patient explained the instructions by Neurology and he agrees for follow up. He was advised not to drive a vehicle or any machinery until cleared by Neurology. He was told to also f/u with a primary doctor. He was advised to return to the eD with any worsening of symptoms or any other concern. - Lab Interpretations Lab Results: 01/06/18 18:49 01/06/18 18:49 Lab Results 01/06/18 20:53: Urine Opiates Screen Negative, Urine Methadone Screen Negative, Ur Barbiturates Screen Negative, Ur Phencyclidine Scrn Negative, Ur Amphetamines Screen Negative, U Benzodiazepines Scrn Negative, U Oth Cocaine Metabols Negative, U Cannabinoids Screen Negative 01/06/18 18:49: Valproic Acid 39 L 01/06/18 18:49: Alcohol, Quantitative < 10 01/06/18 18:49: Sodium 144, Potassium 3.8, Chloride 107, Carbon Dioxide 23, Anion Gap 18, BUN 25 H, Creatinine 0.8, Est GFR ( Amer) > 60, Est GFR ( Non-Af Amer) > 60, Random Glucose 96, Calcium 9.1, Magnesium 1.5 L, Total Bilirubin 0.3, AST 28, ALT 22, Alkaline Phosphatase 37 L D, Total Protein 6.9, Albumin 3.8, Globulin 3.1, Albumin/Globulin Ratio 1.2 01/06/18 18:49: WBC 5.5 D, RBC 4.38, Hgb 13.4 L, Hct 39.5 L, MCV 90.2, MCH 30.6 , MCHC 33.9, RDW 13.8, Plt Count 176, MPV 10.2, Gran % 48.6 L, Lymph % (Auto) 38.4 H, [place] % (Auto) 10.4 H, Eos % (Auto) 2.2, Baso % (Auto) 0.4, Gran # 2.66, Lymph # (Auto) 2.1, [place] # (Auto) 0.6, Eos # (Auto) 0.1, Baso # (Auto) 0.02 01/06/18 18:18: POC Glucose (mg/dL) 125 H I have reviewed the lab results: Yes - RAD Interpretation Radiology Orders: 01/06/18 18:27 HEAD W/O CONTRAST [CT] Stat 01/06/18 19:00 HAND RIGHT 3 VIEWS [RAD] Stat - Medication Orders Current Medication Orders: Discontinued Medications Sodium Chloride (Sodium Chloride 0.9%) 1,000 mls @ 999 mls/hr IV .Q1H1M STA Stop: 01/06/18 20:10 Last Admin: 01/06/18 19:19 Dose: 999 mls/hr eMAR Start Stop Document 01/06/18 19:19 MS (Rec: 01/06/18 19:19 [id number]) Intravenous Solution Start Date 01/06/18 Start Time 19:19 End Date 01/06/18 End time 20:20 Total Infusion Time 61 Valproate Sodium 1,500 mg/ (Sodium Chloride) 115 mls @ 100 mls/hr IVPB STAT STA Stop: 01/06/18 22:19 Last Admin: 01/06/18 21:38 Dose: 100 mls/hr eMAR Start Stop Document 01/06/18 21:38 MS (Rec: 01/06/18 21:39 [id number]) Intravenous Solution Start Date 01/06/18 Start Time 21:38 End Date 01/06/18 End time 22:50 Total Infusion Time 72 Tetanus/Reduced Diphtheria/Acell Pertussis (Boostrix Vaccine Inj) 0.5 ml IM .ONCE ONE Stop: 01/06/18 19:01 Last Admin: 01/06/18 19:19 Dose: 0.5 ml MAR Immunization Data Document 01/06/18 19:19 MS (Rec: 01/06/18 19:19 [id number]) Immunization Data Vaccine Information Sheet Given Yes Immunization Registry Document 01/06/18 19:19 MS (Rec: 01/06/18 19:19 MS [id number]) Immunization Registry Consent Date 12/11/17 - Scribe Statement The provider has reviewed the documentation as recorded by the Shane Jules Provider Scribe Attestation: All medical record entries made by the Scribe were at my direction and personally dictated by me. I have reviewed the chart and agree that the record accurately reflects my personal performance of the history, physical exam, medical decision making, and the department course for this patient. I have also personally directed, reviewed, and agree with the discharge instructions and disposition. Disposition/Present on Arrival - Present on Arrival Any Indicators Present on Arrival: No History of DVT/PE: No History of Uncontrolled Diabetes: No Urinary Catheter: No History of Decub. Ulcer: No History Surgical Site Infection Following: None - Disposition Have Diagnosis and Disposition been Completed?: Yes Diagnosis: Seizure Disposition: HOME/ ROUTINE Disposition Time: 22:15 Patient Plan: Discharge Condition: IMPROVED Discharge Instructions (ExitCare): Seizures, Adult (DC) Additional Instructions: Mr Tracey, thank you for letting us take care of you today. Your provider was Dr. Goldman. You were treated for Seizure. The emergency medical care you received today was directed at your acute symptoms. If you were prescribed any medication, please fill it and take as directed. It may take several days for your symptoms to resolve. Return to the Emergency Department if your symptoms worsen, do not improve, or if you have any other problems. Please contact your doctor or call one of the physicians/clinics you have been referred to that are listed on the Patient Visit Information form that is included in your discharge packet. Bring any paperwork you were given at discharge with you along with any medications you are taking to your follow up visit. Our treatment cannot replace ongoing medical care by a primary care provider (PCP) outside of the emergency department. Thank you for allowing the [facility] team to be part of your care today. If you had an X-Ray or CT scan: A Radiologist will review the ED reading if any change in treatment is needed we will contact you. If you had a blood, urine, or wound culture: It will take several days for the results, if any change in treatment is needed we will contact you. If you had an STI test: It will take 48 hours for the results. Please call after 1 week if you have not heard back. Prescriptions: levETIRAcetam [Keppra] 1,000 mg PO BID #30 tab Referrals: Adal Hui MD [Primary Care Provider] - Follow up with primary Allan Jensen MD [Staff Provider] - Follow up with primary Forms: [employer] (Turkish), WORK NOTE
[2018-01-06] MEDS ORDERED: TDAP Vaccine 0.5 mL Syr IM ONE (19:00)
[2018-01-06 19:08] LABS: ALB/GLOB RATIO 1.2 (1.1-1.8); ALBUMIN 3.8 g/dL (3.0-4.8); ALT/SGPT 22 U/L (7-56); AST/SGOT 28 U/L (17-59); BLOOD UREA NITROGEN 25 mg/dL (7-21); CALCIUM 9.1 mg/dL (8.4-10.5); GFR AFRICAN-AMERICAN > 60; GFR NON-AFRICAN AMERICAN > 60
[2018-01-06] MEDS ORDERED: Sodium Chloride 0.9% 1,000 ML IV STA (19:10)
[2018-01-06 19:11] LABS: BASO # 0.02 K/mm3 (0.0-2.0); BASO % 0.4 % (0.0-3.0); EOS # 0.1 (0.0-0.7); EOS % 2.2 % (1.5-5.0); GRAN # 2.66 (1.4-6.5); GRAN % 48.6 % (50.0-68.0); HEMOGLOBIN 13.4 g/dL (14.0-18.0); LYMPH # 2.1 (1.2-3.4); LYMPH % 38.4 % (22.0-35.0); MEAN CELL VOLUME 90.2 fl (80.0-105.0); MEAN CORPUSCULAR HEMOGLOBIN 30.6 pg (25.0-35.0); MEAN CORPUSCULAR HGB CONC 33.9 g/dl (31.0-37.0); MEAN PLATELET VOLUME 10.2 fl (7.0-11.0); MONO # 0.6 (0.1-0.6); MONO % 10.4 % (1.0-6.0); RBC 4.38 10^6/uL (3.5-6.1); RED CELL DISTRIBUTION WIDTH 13.8 % (11.5-14.5); WHITE BLOOD COUNT 5.5 10^3/ul (4.5-11.0)
[2018-01-06 20:06] VITALS: BP 120/76; PULSE 88
--- NOTE | 2018-01-06 21:03 | CT ---
EXAM: CT Head Without Intravenous Contrast CLINICAL HISTORY: 52 years old, male; Injury or trauma; Fall; Initial encounter; Blunt trauma (contusions or hematomas); Consciousness not specified; Additional info: Seizure with fall TECHNIQUE: Axial computed tomography images of the head/brain without intravenous contrast. All CT scans at this facility use one or more dose reduction techniques, viz.: automated exposure control; ma/kV adjustment per patient size (including targeted exams where dose is matched to indication; i.e. head); or iterative reconstruction technique. Coronal and sagittal reformatted images were created and reviewed. COMPARISON: CT - HEAD W/O CONTRAST 2017-12-17 14:08 FINDINGS: Brain: Mild atrophy. No intracranial hemorrhage. No mass. Minimal decreased attenuation within periventricular white matter. Dilated perivascular space vs chronic lacunar infarct about LEFT basal ganglia. No edema. Ventricles: No hydrocephalus. Bones/joints: No acute fracture. Soft tissues: Unremarkable. Sinuses: Scattered minimal mucosal thickening. Mastoid air cells: No mastoid effusion. Orbits: Unremarkable as visualized. IMPRESSION: 1. No intracranial hemorrhage. 2. Nonspecific white matter changes. 3. Incidental/non-acute findings are described above.
[2018-01-06] MEDS ORDERED: Valproate 1,500 MG in Sodium Chloride 0.9% 100 ML IVPB STA (21:11)
[2018-01-06 22:24] VITALS: RESP 16; TEMP 98
[2018-01-06 22:25] LABS: BARBITURATES, UR NEGATIVE (NEGATIVE); BENZODIAZEPINES, UR NEGATIVE (NEGATIVE); OPIATES, UR NEGATIVE (NEGATIVE); PHENCYCLIDINE, UR NEGATIVE (NEGATIVE)
--- NOTE | 2018-01-07 08:07 | RAD ---
PROCEDURE: Right Hand Radiographs. HISTORY: fall r/o fx COMPARISON: None. FINDINGS: BONES: Normal. No fracture. JOINTS: Normal. No osteoarthritic changes. SOFT TISSUES: Normal. OTHER FINDINGS: None. IMPRESSION: No acute findings related to/accounting for the clinical presentation. Concordant results with the preliminary interpretation rendered by the emergency department physician procedure.
--- NOTE | 2018-01-07 13:08 | CARD ---
APPROVED REPORT EKG Measurement Heart [id number] <Conclusion> Normal sinus rhythm LVH by voltage
== END 2018-01-06 22:15 | disposition home or self-care (01) ==
LOC: ED 18:15
DX: G40.909 Epilepsy, unspecified, not intractable, without status epilepticus (principal); Z23 Encounter for immunization
CPT/HCPCS: 70450; 73130; 80053; 80164; 80320; 80324; 80345; 80346; 80349; 80353; 80358; 80361; 82948; 83735; 83992; 85025; 90471; 90715; 93005; 96361; 96365; 99285; J7040

== ENCOUNTER 2018-01-13 12:49 | Emergency (ER) | payer MEDICAID ==
[2018-01-13 12:49] VITALS: BMI 27.7
[2018-01-13 13:09] VITALS: RESP 16; TEMP 97.7
--- NOTE | 2018-01-13 13:20 | ED PDOC ---
Arrival/HPI - General Chief Complaint: Seizure Time Seen by Provider: 01/13/18 13:11 Historian: Patient, EMS - History of Present Illness Time/Duration: Prior to Arrival Symptom Onset: Sudden Symptom Course: Resolved Associated Symptoms (Text): 01/13/18 13:18 Patient reports that he was walking down the street with a friend and apparently had a seizure which the friend witnessed. 911 was called and the patient was brought to the emergency department. There is a history of seizures. He was last seen in the emergency department one week ago after a seizure. He had a negative workup at that time including a CT scan. His Keppra dose was increased to 1000 mg a day. Patient reports that he is taking his medications. He denies any bowel or bladder incontinence. No tongue biting. No trauma. Past Medical History - Infectious Disease Hx of Infectious Diseases: None - Cardiac Hx Cardiac Disorders: No - Pulmonary Hx Respiratory Disorders: No - Neurological Hx Seizures: Yes - HEENT Hx HEENT Disorder: No - Renal Hx Renal Disorder: No - Endocrine/Metabolic Hx Endocrine Disorders: No - Hematological/Oncological Hx Blood Disorders: No - Integumentary Hx Dermatological Disorder: No - Musculoskeletal/Rheumatological Hx Musculoskeletal Disorders: No - Gastrointestinal Hx Gastrointestinal Disorders: No - Genitourinary/Gynecological Hx Genitourinary Disorders: No - Psychiatric Hx Psychophysiologic Disorder: Yes Hx Substance Use: No Other/Comment: Substance abuse-HEROINE COCAINE AND MARIJUANA USE - Anesthesia Hx Anesthesia: No Hx Anesthesia Reactions: No Hx Malignant Hyperthermia: No Family/Social History - Physician Review Nursing Documentation Reviewed: Yes Family/Social History: Unknown Family HX Smoking Status: Light Smoker < 10 Cigarettes Daily Hx Alcohol Use: No Hx Substance Use: No Allergies/Home Meds Allergies/Adverse Reactions: Allergies seafood Allergy (Uncoded 01/13/18 13:31) unknown Home Medications: Home Meds Medication Instructions Recorded Confirmed levETIRAcetam [Keppra] 500 mg PO BID 12/17/17 01/13/18 Review of Systems - Physician Review All systems were reviewed & negative as marked: Yes - Review of Systems Constitutional: Normal Respiratory: Normal Cardiovascular: Normal Gastrointestinal: Normal Neurological: Seizure. absent: Headache, Dizziness, Focal Weakness, Gait Changes, Speech Changes, Facial Droop, Disequilibrium Physical Exam Vital Signs Temp Pulse Resp BP Pulse Ox 01/13/18 13:08 97.7 F 81 16 131/79 100 Temperature: Afebrile Blood Pressure: Normal Pulse: Regular Respiratory Rate: Normal Appearance: Positive for: Well-Appearing, Non-Toxic, Comfortable Pain Distress: None Mental Status: Positive for: Alert and Oriented X 3 Finger Stick Blood Glucose: 78 - Systems Exam Head: Present: Atraumatic, Normocephalic Pupils: Present: PERRL Extroacular Muscles: Present: EOMI Conjunctiva: Present: Normal Mouth: Present: Moist Mucous Membranes Pharnyx: No: ERYTHEMA, EXUDATE, TONSILS ENLARGED Neck: Present: Normal Range of Motion Respiratory/Chest: Present: Clear to Auscultation, Good Air Exchange, Decreased Breath Sounds. No: Respiratory Distress, Accessory Muscle Use Cardiovascular: Present: Regular Rate and Rhythm, Normal S1, S2. No: Murmurs Abdomen: No: Tenderness, Distention, Peritoneal Signs, Rebound, Guarding Upper Extremity: Present: Normal Inspection. No: Cyanosis, Edema Lower Extremity: Present: Normal Inspection. No: Edema Neurological: Present: GCS=15, CN II-XII Intact, Speech Normal, Motor Func Grossly Intact, Normal Sensory Function, Normal Cerebellar Funct Skin: Present: Warm, Dry, Normal Color. No: Rashes Psychiatric: Present: Alert, Oriented x 3, Normal Insight, Normal Concentration Medical Decision Making ED Course and Treatment: 01/13/18 14:20 Breakthrough seizure. Patient given additional dose of Depakote. Follow-up with neurologist and PMD. Follow up in ER as needed. - Lab Interpretations Lab Results: 01/13/18 13:53 01/13/18 13:53 Lab Results 01/13/18 13:53: Valproic Acid 37 L 01/13/18 13:53: Sodium 144, Potassium 3.9, Chloride 108 H, Carbon Dioxide 24, Anion Gap 17, BUN 18, Creatinine 0.9, Est GFR ( Amer) > 60, Est GFR (Non- Af Amer) > 60, Random Glucose 91, Calcium 9.4, Magnesium 2.0, Total Bilirubin 0.6, AST 31, ALT 20, Alkaline Phosphatase 28 L D, Total Protein 7.8, Albumin 4.2 , Globulin 3.6, Albumin/Globulin Ratio 1.2 01/13/18 13:53: WBC 3.5 L D, RBC 4.81, Hgb 14.8, Hct 42.5, MCV 88.4, MCH 30.8, MCHC 34.8, RDW 13.5, Plt Count 179, MPV 9.3, Gran % 41.1 L, Lymph % (Auto) 35.4 H, Mitchell % (Auto) 20.0 H, Eos % (Auto) 2.6, Baso % (Auto) 0.9, Gran # 1.44, Lymph # (Auto) 1.2, Mitchell # (Auto) 0.7 H, Eos # (Auto) 0.1, Baso # (Auto) 0.03 - Medication Orders Current Medication Orders: Valproate Sodium (Depakene Cap) 500 mg PO DAILY STA Stop: 01/13/18 14:19 Disposition/Present on Arrival - Present on Arrival Any Indicators Present on Arrival: No History of DVT/PE: No History of Uncontrolled Diabetes: No Urinary Catheter: No History of Decub. Ulcer: No History Surgical Site Infection Following: None - Disposition Have Diagnosis and Disposition been Completed?: Yes Diagnosis: Seizure Disposition: HOME/ ROUTINE Disposition Time: 14:20 Patient Plan: Discharge Condition: GOOD Discharge Instructions (ExitCare): Seizures Additional Instructions: Must take medications as prescribed. Follow-up with PMD and neurologist. Follow up in ER as needed. Forms: [employer] ([employer])
[2018-01-13 13:58] LABS: BASO # 0.03 K/mm3 (0.0-2.0); BASO % 0.9 % (0.0-3.0); EOS # 0.1 (0.0-0.7); EOS % 2.6 % (1.5-5.0); GRAN # 1.44 (1.4-6.5); GRAN % 41.1 % (50.0-68.0); HEMOGLOBIN 14.8 g/dL (14.0-18.0); LYMPH # 1.2 (1.2-3.4); LYMPH % 35.4 % (22.0-35.0); MEAN CELL VOLUME 88.4 fl (80.0-105.0); MEAN CORPUSCULAR HEMOGLOBIN 30.8 pg (25.0-35.0); MEAN CORPUSCULAR HGB CONC 34.8 g/dl (31.0-37.0); MEAN PLATELET VOLUME 9.3 fl (7.0-11.0); MONO # 0.7 (0.1-0.6); RBC 4.81 10^6/uL (3.5-6.1); RED CELL DISTRIBUTION WIDTH 13.5 % (11.5-14.5); WHITE BLOOD COUNT 3.5 10^3/ul (4.5-11.0)
[2018-01-13 14:14] LABS: ALB/GLOB RATIO 1.2 (1.1-1.8); ALBUMIN 4.2 g/dL (3.0-4.8); ALT/SGPT 20 U/L (7-56); AST/SGOT 31 U/L (17-59); BLOOD UREA NITROGEN 18 mg/dL (7-21); CALCIUM 9.4 mg/dL (8.4-10.5); GFR NON-AFRICAN AMERICAN > 60
[2018-01-13 14:44] VITALS: BP 112/73; PULSE 72; O2SAT 97
== END 2018-01-13 14:43 | disposition home or self-care (01) ==
LOC: ED 12:49
DX: R56.9 Unspecified convulsions (principal); F17.210 Nicotine dependence, cigarettes, uncomplicated

== ENCOUNTER 2018-01-13 15:26 | Inpatient (IN) | payer MEDICAID ==
[2018-01-13 15:35] VITALS: BMI 28.3
[2018-01-13] MEDS ORDERED: TDAP Vaccine 0.5 mL Syr IM ONE (15:35)
--- NOTE | 2018-01-13 15:56 | CP.PCM.HP ---
<McgheeJosePrashant - Last Filed: 01/13/18 17:06> History of Present Illness - History of Present Illness History of Present Illness: 52 year old male with past medical history of seizure disorder who presents after a witnessed seizure on the street, brought in by EMS. Patient was in the hospital earlier for seizure was given medication and discharged. After being discharged he had another seizure while walking down the street with his friend. Patient does not know how long the seizure lasted for but denied hitting his head. He also denied any incontinence, tongue biting, or foaming from the mouth. He broke his fall with his hands and as a result has some abrasions on this right hand. Patient states he is compliant with his medication. We will reach out to his pharmacy to confirm. He was last admitted in October and November for similar episodes. Patient denies any chest pain, shortness of breath, fever, chills, headaches, nausea, vomiting, abdominal pain or any other complaints at this time. Neurologist: Deborah Avitia [phone] . Past Medical History: seizure disorders Surgical history: denies Allergies: seafood Family history: non contributory Medications: depakote, keppra, lamictal, has not picked up from regular pharmacy. [place] [facility] Social: denies alcohol and illicit drug use, patient smoked 8 cigarrettes a day. Present on Admission - Present on Admission Any Indicators Present on Admission: No Past Patient History - Infectious Disease Hx of Infectious Diseases: None - Past Social History Smoking Status: Light Smoker < 10 Cigarettes Daily - CARDIAC Hx Cardiac Disorders: No - PULMONARY Hx Respiratory Disorders: No - NEUROLOGICAL Hx Seizures: Yes - HEENT Hx HEENT Problems: No - RENAL Hx Chronic Kidney Disease: No - ENDOCRINE/METABOLIC Hx Endocrine Disorders: No - HEMATOLOGICAL/ONCOLOGICAL Hx Blood Disorders: No - INTEGUMENTARY Hx Dermatological Problems: No - MUSCULOSKELETAL/RHEUMATOLOGICAL Hx Musculoskeletal Disorders: No - GASTROINTESTINAL Hx Gastrointestinal Disorders: No - GENITOURINARY/GYNECOLOGICAL Hx Genitourinary Disorders: No - PSYCHIATRIC Hx Psychophysiologic Disorder: Yes Hx Substance Use: No Other/Comment: Substance abuse-HEROINE COCAINE AND MARIJUANA USE - SURGICAL HISTORY Hx Surgeries: No - ANESTHESIA Hx Anesthesia: No Hx Anesthesia Reactions: No Hx Malignant Hyperthermia: No Meds Allergies/Adverse Reactions: Allergies Allergy/AdvReac Type Severity Reaction Status Date / Time seafood Allergy unknown Uncoded 01/13/18 13:31 Physical Exam - Constitutional Appears: Non-toxic, Unkempt - Head Exam Head Exam: ATRAUMATIC - Eye Exam Eye Exam: EOMI, Normal appearance - ENT Exam ENT Exam: Mucous Membranes Moist - Respiratory Exam Respiratory Exam: Clear to Auscultation Bilateral, NORMAL BREATHING PATTERN - Cardiovascular Exam Cardiovascular Exam: REGULAR RHYTHM, +S1, +S2 - GI/Abdominal Exam GI & Abdominal Exam: Normal Bowel Sounds, Soft. absent: Distended - Extremities Exam Extremities exam: Positive for: full ROM. Negative for: pedal edema, tenderness Additional comments: abrasions on right hand - Neurological Exam Neurological exam: Alert, Oriented x3 - Psychiatric Exam Psychiatric exam: Anxious - Skin Skin Exam: Warm Results - Vital Signs Recent Vital Signs: Last Vital Signs Temp 98.7 F 01/13/18 15:39 Pulse 110 H 01/13/18 15:39 Resp 18 01/13/18 15:39 BP 134/89 01/13/18 15:39 Pulse Ox 99 01/13/18 15:39 Assessment & Plan - Assessment and Plan (Free Text) Assessment: 52 year old male with past medical history of seizure disorder who presents after a witnessed seizure on the street, brought in by EMS. Plan: Seizure-history of seizure disorder -CT done on recent admission, will order if needed -EKG pending official read -neuro consulted, fiona Michelle recs -UDS pending -Keppra 500 BID -Depakote ER 750 TID -Ativan PRN -fall precautions -seizure precautions -keppra level GI/DVT Prphylaxis -Sequential compression devices -protonix <[place] - Last Filed: 01/14/18 14:16> Results - Vital Signs Recent Vital Signs: Last Vital Signs Temp 98.4 F 01/14/18 12:00 Pulse 80 01/14/18 12:00 Resp 20 01/14/18 12:00 BP 131/63 01/14/18 12:00 Pulse Ox 100 01/14/18 05:50 - Labs Result Diagrams: 01/14/18 08:29 01/14/18 06:00 Labs: Laboratory Results - last 24 hr 01/13/18 01/13/18 01/13/18 17:00 17:00 17:00 WBC 3.7 L RBC 4.81 Hgb 14.9 Hct 42.7 MCV 88.8 MCH 31.0 MCHC 34.9 RDW 13.4 Plt Count 179 MPV 9.5 Gran % 53.0 Lymph % (Auto) 31.6 Sumner % (Auto) 13.6 H Eos % (Auto) 1.3 L Baso % (Auto) 0.5 Gran # 1.98 Lymph # (Auto) 1.2 Sumner # (Auto) 0.5 Eos # (Auto) 0.1 Baso # (Auto) 0.02 Sodium 147 Potassium 4.0 Chloride 107 Carbon Dioxide 27 Anion Gap 17 BUN 19 Creatinine 0.9 Est GFR ( Amer) > 60 Est GFR (Non-Af Amer) > 60 Random Glucose 89 Calcium 9.6 Phosphorus Magnesium Total Bilirubin 0.7 AST 27 ALT 19 Alkaline Phosphatase 29 L Total Creatine Kinase 353 H CK-MB (CK-2) 2.1 CK-MB (CK-2) % Cancelled Total Protein 7.4 Albumin 4.0 Globulin 3.4 Albumin/Globulin Ratio 1.2 Urine Opiates Screen Urine Methadone Screen Ur Barbiturates Screen Valproic Acid Ur Phencyclidine Scrn Ur Amphetamines Screen U Benzodiazepines Scrn U Oth Cocaine Metabols U Cannabinoids Screen Alcohol, Quantitative < 10 01/14/18 01/14/18 01/14/18 03:00 06:00 06:00 WBC RBC Hgb Hct MCV MCH MCHC RDW Plt Count MPV Gran % Lymph % (Auto) Sumner % (Auto) Eos % (Auto) Baso % (Auto) Gran # Lymph # (Auto) Sumner # (Auto) Eos # (Auto) Baso # (Auto) Sodium 145 Potassium 4.1 Chloride 107 Carbon Dioxide 24 Anion Gap 18 BUN 17 Creatinine 0.9 Est GFR ( Amer) > 60 Est GFR (Non-Af Amer) > 60 Random Glucose 79 Calcium 9.4 Phosphorus 4.1 Magnesium 2.1 Total Bilirubin 0.7 AST 34 ALT 19 Alkaline Phosphatase 28 L Total Creatine Kinase CK-MB (CK-2) CK-MB (CK-2) % Total Protein 7.2 Albumin 3.8 Globulin 3.4 Albumin/Globulin Ratio 1.1 Urine Opiates Screen Negative Urine Methadone Screen Negative Ur Barbiturates Screen Negative Valproic Acid 94 Ur Phencyclidine Scrn Negative Ur Amphetamines Screen Negative U Benzodiazepines Scrn Negative U Oth Cocaine Metabols Negative U Cannabinoids Screen Negative Alcohol, Quantitative 01/14/18 08:29 WBC 3.8 L RBC 4.78 Hgb 14.5 Hct 42.7 MCV 89.3 MCH 30.3 MCHC 34.0 RDW 13.5 Plt Count 176 MPV 9.9 Gran % 33.0 L Lymph % (Auto) 46.1 H Sumner % (Auto) 16.2 H Eos % (Auto) 3.9 Baso % (Auto) 0.8 Gran # 1.26 L Lymph # (Auto) 1.8 Sumner # (Auto) 0.6 Eos # (Auto) 0.2 Baso # (Auto) 0.03 Sodium Potassium Chloride Carbon Dioxide Anion Gap BUN Creatinine Est GFR ( Amer) Est GFR (Non-Af Amer) Random Glucose Calcium Phosphorus Magnesium Total Bilirubin AST ALT Alkaline Phosphatase Total Creatine Kinase CK-MB (CK-2) CK-MB (CK-2) % Total Protein Albumin Globulin Albumin/Globulin Ratio Urine Opiates Screen Urine Methadone Screen Ur Barbiturates Screen Valproic Acid Ur Phencyclidine Scrn Ur Amphetamines Screen U Benzodiazepines Scrn U Oth Cocaine Metabols U Cannabinoids Screen Alcohol, Quantitative Attending/Attestation - Attestation I have personally seen and examined this patient.: Yes I have fully participated in the care of the patient.: Yes I have reviewed all pertinent clinical information: Yes Notes (Text): 01/14/18 14:13 attending note; Patient seen and examined with resident. patient is a 52 year old male with past medical history of seizure disorder who presents after a witnessed seizure on the street, brought in by EMS. Patient was in the hospital earlier for seizure was given medication and discharged. Patient with seizure disorder since childhood. Patient also has some speech impairment/mild cognitive impairment. Patient lives with his sister. Patient has multiple ER visits for seizure. Medication compliance is in question. [place] [facility] According to patient he follows up with Dr. Shaikh. Neurology evaluation requested. Started on Depakote and Keppra. Monitor closely.
--- NOTE | 2018-01-13 15:56 | ED PDOC ---
Arrival/HPI - General Chief Complaint: Seizure Time Seen by Provider: 01/13/18 15:29 Historian: Patient, EMS - History of Present Illness Time/Duration: Prior to Arrival Symptom Onset: Sudden Symptom Course: Improving Associated Symptoms (Text): 01/13/18 15:54 Patient was just discharged from the emergency department. I saw the patient for recurrent seizures. His Depakote level was low. He was loaded with Depakote and discharge. He was found in the street having a seizure. He suffered some abrasions on his right dorsal hand. Nontender with full range of motion. No other injury or trauma. I discussed the case with the hospitalist and he will be admitted to the hospital. Past Medical History - Infectious Disease Hx of Infectious Diseases: None - Cardiac Hx Cardiac Disorders: No - Pulmonary Hx Respiratory Disorders: No - Neurological Hx Seizures: Yes - HEENT Hx HEENT Disorder: No - Renal Hx Renal Disorder: No - Endocrine/Metabolic Hx Endocrine Disorders: No - Hematological/Oncological Hx Blood Disorders: No - Integumentary Hx Dermatological Disorder: No - Musculoskeletal/Rheumatological Hx Musculoskeletal Disorders: No - Gastrointestinal Hx Gastrointestinal Disorders: No - Genitourinary/Gynecological Hx Genitourinary Disorders: No - Psychiatric Hx Psychophysiologic Disorder: Yes Hx Substance Use: No Other/Comment: Substance abuse-HEROINE COCAINE AND MARIJUANA USE - Anesthesia Hx Anesthesia: No Hx Anesthesia Reactions: No Hx Malignant Hyperthermia: No Family/Social History - Physician Review Nursing Documentation Reviewed: Yes Family/Social History: Unknown Family HX Smoking Status: Light Smoker < 10 Cigarettes Daily Hx Alcohol Use: No Hx Substance Use: No Allergies/Home Meds Allergies/Adverse Reactions: Allergies seafood Allergy (Uncoded 01/13/18 13:31) unknown Home Medications: Home Meds Medication Instructions Recorded Confirmed levETIRAcetam [Keppra] 500 mg PO BID 12/17/17 01/13/18 Divalproex [Depakote ER] 500 mg PO TID 01/13/18 01/13/18 Review of Systems - Physician Review All systems were reviewed & negative as marked: Yes Physical Exam Vital Signs Temp Pulse Resp BP Pulse Ox 01/13/18 15:39 98.7 F 110 H 18 134/89 99 Temperature: Afebrile Blood Pressure: Normal Pulse: Tachycardic Respiratory Rate: Normal Appearance: Positive for: Well-Appearing, Non-Toxic, Comfortable Pain Distress: None Mental Status: Positive for: Alert and Oriented X 3 Finger Stick Blood Glucose: 94 - Systems Exam Head: Present: Atraumatic, Normocephalic Pupils: Present: PERRL Extroacular Muscles: Present: EOMI Conjunctiva: Present: Normal Neck: Present: Normal Range of Motion Respiratory/Chest: Present: Clear to Auscultation, Good Air Exchange. No: Respiratory Distress, Accessory Muscle Use Cardiovascular: Present: Regular Rate and Rhythm, Normal S1, S2. No: Murmurs Upper Extremity: Present: Other (Superficial dorsal right hand abrasions with full range of motion and nontender). No: Normal Inspection Lower Extremity: Present: Normal Inspection. No: Edema Neurological: Present: GCS=15, CN II-XII Intact, Speech Normal, Motor Func Grossly Intact, Normal Cerebellar Funct, Gait Normal Skin: Present: Warm, Dry, Normal Color. No: Rashes Psychiatric: Present: Alert, Oriented x 3, Normal Insight, Normal Concentration Medical Decision Making - Medication Orders Current Medication Orders: Bacitracin (Bacitracin) 1 gm TOP BID REGINA Divalproex Sodium (Depakote Dr (*Bid*)) 750 mg PO TID REGINA PRN Reason: Protocol Levetiracetam (Keppra) 500 mg PO BID REGINA Lorazepam (Ativan) 1 mg IVP Q4 PRN; Protocol PRN Reason: Seizure activity Pantoprazole Sodium (Protonix Ec Tab) 40 mg PO 0600 REGINA Discontinued Medications Lorazepam (Ativan) 2 mg IVP PRN PRN; Protocol PRN Reason: Seizure activity Tetanus/Reduced Diphtheria/Acell Pertussis (Boostrix Vaccine Inj) 0.5 ml IM .ONCE ONE Stop: 01/13/18 15:36 Last Admin: 01/13/18 16:07 Dose: 0.5 ml Immunization Registry Document 01/13/18 16:07 CHANDRAKANT (Rec: 01/13/18 16:08 CHANDRAKANT [id number]) Immunization Registry Consent Date 12/11/17 Disposition/Present on Arrival - Present on Arrival Any Indicators Present on Arrival: No History of DVT/PE: No History of Uncontrolled Diabetes: No Urinary Catheter: No History of Decub. Ulcer: No History Surgical Site Infection Following: None - Disposition Have Diagnosis and Disposition been Completed?: Yes Diagnosis: Seizure, Abrasion of right hand Disposition: HOSPITALIZED Disposition Time: 15:56 Patient Plan: Admission, Telemetry Patient Problems: Current Active Problems Problem Status Onset Seizure Acute Condition: GOOD
[2018-01-13 17:25] LABS: BASO # 0.02 K/mm3 (0.0-2.0); BASO % 0.5 % (0.0-3.0); EOS # 0.1 (0.0-0.7); EOS % 1.3 % (1.5-5.0); GRAN # 1.98 (1.4-6.5); HEMOGLOBIN 14.9 g/dL (14.0-18.0); LYMPH # 1.2 (1.2-3.4); LYMPH % 31.6 % (22.0-35.0); MEAN CELL VOLUME 88.8 fl (80.0-105.0); MEAN CORPUSCULAR HGB CONC 34.9 g/dl (31.0-37.0); MEAN PLATELET VOLUME 9.5 fl (7.0-11.0); MONO # 0.5 (0.1-0.6); MONO % 13.6 % (1.0-6.0); RBC 4.81 10^6/uL (3.5-6.1); RED CELL DISTRIBUTION WIDTH 13.4 % (11.5-14.5); WHITE BLOOD COUNT 3.7 10^3/ul (4.5-11.0)
[2018-01-13 17:40] LABS: ALB/GLOB RATIO 1.2 (1.1-1.8); ALT/SGPT 19 U/L (7-56); AST/SGOT 27 U/L (17-59); BLOOD UREA NITROGEN 19 mg/dL (7-21); CALCIUM 9.6 mg/dL (8.4-10.5); GFR AFRICAN-AMERICAN > 60; GFR NON-AFRICAN AMERICAN > 60
[2018-01-13 17:59] LABS: CK-MB 2.1 ng/mL (0.0-3.6)
[2018-01-13] MEDS ORDERED: Divalproex 250 mg DR (BID formulation) PO SCH (18:00)
[2018-01-13] MEDS ORDERED: Divalproex 500 mg DR(BID formulation) PO ONE (18:37)
[2018-01-13] MEDS: Bacitracin Ointment 30 GM TUBE TOP SCH (18:38)
--- NOTE | 2018-01-13 20:31 | CARD ---
APPROVED REPORT EKG Measurement Heart [id number] NC [id number] [id number] <Conclusion> Normal sinus rhythm with sinus arrhythmia Normal ECG
[2018-01-13] MEDS ORDERED: Pneumococcal 23-Valent Vaccine IM ONE (23:24)
[2018-01-14 04:28] LABS: BARBITURATES, UR NEGATIVE (NEGATIVE)
[2018-01-14 04:40] LABS: BENZODIAZEPINES, UR NEGATIVE (NEGATIVE); OPIATES, UR NEGATIVE (NEGATIVE); PHENCYCLIDINE, UR NEGATIVE (NEGATIVE)
[2018-01-14] MEDS: Pantoprazole 40 mg EC Tab PO SCH (05:39)
[2018-01-14] MEDS ORDERED: Pantoprazole 40 mg EC Tab PO SCH (06:00)
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
[2018-01-14 09:23] LABS: ALB/GLOB RATIO 1.1 (1.1-1.8); ALBUMIN 3.8 g/dL (3.0-4.8); ALT/SGPT 19 U/L (7-56); AST/SGOT 34 U/L (17-59); BLOOD UREA NITROGEN 17 mg/dL (7-21); CALCIUM 9.4 mg/dL (8.4-10.5); GFR AFRICAN-AMERICAN > 60; GFR NON-AFRICAN AMERICAN > 60
[2018-01-14 09:25] LABS: BASO # 0.03 K/mm3 (0.0-2.0); BASO % 0.8 % (0.0-3.0); EOS # 0.2 (0.0-0.7); EOS % 3.9 % (1.5-5.0); GRAN # 1.26 (1.4-6.5); HEMOGLOBIN 14.5 g/dL (14.0-18.0); LYMPH # 1.8 (1.2-3.4); LYMPH % 46.1 % (22.0-35.0); MEAN CELL VOLUME 89.3 fl (80.0-105.0); MEAN CORPUSCULAR HEMOGLOBIN 30.3 pg (25.0-35.0); MEAN PLATELET VOLUME 9.9 fl (7.0-11.0); MONO # 0.6 (0.1-0.6); MONO % 16.2 % (1.0-6.0); RBC 4.78 10^6/uL (3.5-6.1); RED CELL DISTRIBUTION WIDTH 13.5 % (11.5-14.5); WHITE BLOOD COUNT 3.8 10^3/ul (4.5-11.0)
[2018-01-14] MEDS: Bacitracin Ointment 30 GM TUBE TOP SCH (10:21)
[2018-01-14] MEDS ORDERED: levETIRAcetam 1,000 MG in Sodium Chloride 0.9% 100 ML IV ONE (11:26)
[2018-01-14] MEDS ORDERED: Bacitracin Ointment 30 GM TUBE TOP SCH (11:28)
--- NOTE | 2018-01-14 13:34 | CT ---
PROCEDURE: CT HEAD WITHOUT CONTRAST. HISTORY: s/p fall COMPARISON: 01/06/2018 TECHNIQUE: Axial computed tomography images were obtained through the head/brain without intravenous contrast. Radiation dose: Total exam DLP = 919 mGy-cm. This CT exam was performed using one or more of the following dose reduction techniques: Automated exposure control, adjustment of the mA and/or kV according to patient size, and/or use of iterative reconstruction technique. FINDINGS: HEMORRHAGE: No intracranial hemorrhage. BRAIN: No mass effect or edema. No atrophy or chronic microvascular ischemic changes. VENTRICLES: Unremarkable. No hydrocephalus. CALVARIUM: Unremarkable. PARANASAL SINUSES: Unremarkable as visualized. No significant inflammatory changes. MASTOID AIR CELLS: Unremarkable as visualized. No inflammatory changes. OTHER FINDINGS: None. IMPRESSION: No acute finding
--- NOTE | 2018-01-14 13:43 | CP.PCM.PN ---
<Dayton Ricardo - Last Filed: 01/14/18 13:30> Subjective - Date & Time of Evaluation Date of Evaluation: 01/14/18 Time of Evaluation: 07:00 - Subjective Subjective: PGY1 Medicine Note for Dr. Downs Patient seen and examined at bedside this morning. No acute events overnight. Patient states he is feeling well and has not had any seizures while admitted. He is tolerating his diet and currently has no complaints. Denies fevers, chills , nausea, vomiting, diarrhea, constipation, chest pain, shortness of breath, abdominal pain, headaches, vision changes, numbness or tingling. Objective - Vital Signs/Intake and Output Vital Signs (last 24 hours): Temp Pulse Resp BP Pulse Ox 98.4 F 80 20 131/63 100 01/14/18 12:00 01/14/18 12:00 01/14/18 12:00 01/14/18 12:00 01/14/18 05:50 Intake and Output: 01/14/18 01/14/18 06:59 18:59 Intake Total 0 Output Total 100 Balance -100 - Medications Medications: Current Medications Bacitracin (Bacitracin) 0 gm TOP BID [facility] Levetiracetam (Keppra) 1,000 mg PO BID [facility] Lorazepam (Ativan) 1 mg IVP Q4 PRN; Protocol PRN Reason: Seizure activity Pantoprazole Sodium (Protonix Ec Tab) 40 mg PO 0600 [facility] Last Admin: 01/14/18 05:39 Dose: 40 mg - Labs Labs: 01/14/18 08:29 01/14/18 06:00 - Constitutional Appears: Non-toxic, No Acute Distress, Unkempt, Other (smells dirty.) - Head Exam Head Exam: ATRAUMATIC, NORMOCEPHALIC - Eye Exam Eye Exam: EOMI, Normal appearance - ENT Exam ENT Exam: Mucous Membranes Moist - Respiratory Exam Respiratory Exam: Clear to Ausculation Bilateral, NORMAL BREATHING PATTERN. absent: Accessory Muscle Use, Rales, Rhonchi, Wheezes, Respiratory Distress - Cardiovascular Exam Cardiovascular Exam: REGULAR RHYTHM, +S1, +S2 - GI/Abdominal Exam GI & Abdominal Exam: Soft, Normal Bowel Sounds. absent: Distended, Firm, Guarding, Rigid, Tenderness - Extremities Exam Extremities Exam: absent: Calf Tenderness, Pedal Edema Additional comments: abrasions on right hand - Neurological Exam Neurological Exam: Alert, Awake, CN II-XII Intact, Oriented x3 Additional comments: Patient is stammering - baseline - Psychiatric Exam Psychiatric exam: Normal Affect, Normal Mood - Skin Skin Exam: Dry, Warm Assessment and Plan - Assessment and Plan (Free Text) Assessment: 52 year old male with past medical history of seizure disorder who presents after a witnessed seizure on the street, brought in by EMS. Plan: Witnessed Seizure with history of seizure disorder - Neurology consulted, Dr. Michelle - help appreciated - Head CT 01/14 - No acute finding - EGG 01/14 - completed f/u official report - UDS negative - Laproic Acid level 94 (within therapeutic levels) - Keppra 500 BID --> increased to 1,000 mg PO BID - Given loading dose Keppra 1,000 mg IV once - Depakote ER 750 TID - discontinued - Ativan 1mg IVP Q4H PRN - fall precautions - seizure precautions - keppra level Right Hand Abrasion - Apply Bacitracin Onit to affected area BID GI/DVT Prphylaxis -Sequential compression devices -protonix Dispo: Resident Davion spoke with Patient's sister, Lynette Humphreys, on the phone today. She states that the patient has been receiving his medications by mail order from [facility]. She also states that she makes sure he has his medications and asks him if he takes his medications but does not physically give him the medications. He is in charge of his giving himself his own medications. It was discussed that there was a concern if the patient was actually taking his medications as directed and having breakthrough seizures or if he was not taking his medications and having seizures. She understands and states she will make sure that she is more vigilant when the patient is discharged home. Will look to discharge patient home if cleared by Neuro tomorrow. Case discussed with Dr. Himanshu Burris Davion PGY1 <Scot Downs - Last Filed: 01/14/18 14:19> Objective - Vital Signs/Intake and Output Vital Signs (last 24 hours): Temp Pulse Resp BP Pulse Ox 98.4 F 80 20 131/63 100 01/14/18 12:00 01/14/18 12:00 01/14/18 12:00 01/14/18 12:00 01/14/18 05:50 Intake and Output: 01/14/18 01/14/18 06:59 18:59 Intake Total 0 Output Total 100 Balance -100 - Medications Medications: Current Medications Bacitracin (Bacitracin) 0 gm TOP BID [facility] Levetiracetam (Keppra) 1,000 mg PO BID [facility] Lorazepam (Ativan) 1 mg IVP Q4 PRN; Protocol PRN Reason: Seizure activity Pantoprazole Sodium (Protonix Ec Tab) 40 mg PO 0600 [facility] Last Admin: 01/14/18 05:39 Dose: 40 mg - Labs Labs: 01/14/18 08:29 01/14/18 06:00 Attending/Attestation - Attestation I have personally seen and examined this patient.: Yes I have fully participated in the care of the patient.: Yes I have reviewed all pertinent clinical information, including history, physical exam and plan: Yes Notes (Text): 01/14/18 14:17 attending note; Patient seen and examined with resident. patient is a 52 year old male with past medical history of seizure disorder who presents after a witnessed seizure on the street, brought in by EMS. Patient was in the hospital earlier for seizure was given medication and discharged. Patient with seizure disorder since childhood. Patient also has some speech impairment/mild cognitive impairment. Patient lives with his sister. Patient has multiple ER visits for seizure. Medication compliance is in question. Neurology evaluation Appreciated. CT head is negative. EEG done and results pending. loaded with IV Keppra. Depakote discontinued. Monitor closely. Case discussed with patient's sister in detail by medical charge entry specialist. upon discharge patient will follow up with Dr. Shaikh neurologist.
[2018-01-14] MEDS ORDERED: Divalproex 500 mg DR(BID formulation) PO ONE (18:37)
[2018-01-15 00:29] VITALS: BP 109/73; RESP 18; TEMP 98.3; O2SAT 99
[2018-01-15 05:38] VITALS: PULSE 41
[2018-01-15] MEDS: Pantoprazole 40 mg EC Tab PO SCH (06:32)
--- NOTE | 2018-01-15 08:19 | CP.PCM.DIS ---
<Dayton Ricardo - Last Filed: 01/15/18 18:54> Provider - Provider Date of Admission: 01/13/18 15:56 Attending physician: Scot Downs MD Primary care physician: Magdy Barrera Consults: Neuro - Michelle Time Spent in preparation of Discharge (in minutes): 35 Diagnosis - Discharge Diagnosis (1) Abrasion of right hand Status: Acute (2) Seizure Status: Chronic (3) Seizure disorder Status: Acute Priority: Medium Hospital Course - Lab Results Lab Results: Most Recent Lab Values WBC 3.8 10^3/ul (4.5-11.0) L 01/14/18 08:29 RBC 4.78 10^6/uL (3.5-6.1) 01/14/18 08:29 Hgb 14.5 g/dL (14.0-18.0) 01/14/18 08:29 Hct 42.7 % (42.0-52.0) 01/14/18 08:29 MCV 89.3 fl (80.0-105.0) 01/14/18 08:29 MCH 30.3 pg (25.0-35.0) 01/14/18 08:29 MCHC 34.0 g/dl (31.0-37.0) 01/14/18 08:29 RDW 13.5 % (11.5-14.5) 01/14/18 08:29 Plt Count 176 10^3/uL (120.0-450.0) 01/14/18 08:29 MPV 9.9 fl (7.0-11.0) 01/14/18 08:29 Gran % 33.0 % (50.0-68.0) L 01/14/18 08:29 Lymph % (Auto) 46.1 % (22.0-35.0) H 01/14/18 08:29 [place] % (Auto) 16.2 % (1.0-6.0) H 01/14/18 08:29 Eos % (Auto) 3.9 % (1.5-5.0) 01/14/18 08:29 Baso % (Auto) 0.8 % (0.0-3.0) 01/14/18 08:29 Gran # 1.26 (1.4-6.5) L 01/14/18 08:29 Lymph # (Auto) 1.8 (1.2-3.4) 01/14/18 08:29 [place] # (Auto) 0.6 (0.1-0.6) 01/14/18 08:29 Eos # (Auto) 0.2 (0.0-0.7) 01/14/18 08:29 Baso # (Auto) 0.03 K/mm3 (0.0-2.0) 01/14/18 08:29 Sodium 145 mmol/L (132-148) 01/14/18 06:00 Potassium 4.1 mmol/L (3.6-5.0) 01/14/18 06:00 Chloride 107 mmol/L (98-107) 01/14/18 06:00 Carbon Dioxide 24 mmol/L (21-33) 01/14/18 06:00 Anion Gap 18 (10-20) 01/14/18 06:00 BUN 17 mg/dL (7-21) 01/14/18 06:00 Creatinine 0.9 mg/dl (0.8-1.5) 01/14/18 06:00 Est GFR ( Amer) > 60 01/14/18 06:00 Est GFR (Non-Af Amer) > 60 01/14/18 06:00 Random Glucose 79 mg/dL (70-110) 01/14/18 06:00 Calcium 9.4 mg/dL (8.4-10.5) 01/14/18 06:00 Phosphorus 4.1 mg/dL (2.5-4.5) 01/14/18 06:00 Magnesium 2.1 mg/dL (1.7-2.2) 01/14/18 06:00 Total Bilirubin 0.7 mg/dL (0.2-1.3) 01/14/18 06:00 AST 34 U/L (17-59) 01/14/18 06:00 ALT 19 U/L (7-56) 01/14/18 06:00 Alkaline Phosphatase 28 U/L (38-126) L 01/14/18 06:00 Total Creatine Kinase 353 U/L (35-230) H 01/13/18 17:00 CK-MB (CK-2) 2.1 ng/mL (0.0-3.6) 01/13/18 17:00 CK-MB (CK-2) % Cancelled 01/13/18 17:00 Total Protein 7.2 g/dL (5.8-8.3) 01/14/18 06:00 Albumin 3.8 g/dL (3.0-4.8) 01/14/18 06:00 Globulin 3.4 gm/dL 01/14/18 06:00 Albumin/Globulin Ratio 1.1 (1.1-1.8) 01/14/18 06:00 Urine Opiates Screen Negative (NEGATIVE) 01/14/18 03:00 Urine Methadone Screen Negative (NEGATIVE) 01/14/18 03:00 Ur Barbiturates Screen Negative (NEGATIVE) 01/14/18 03:00 Valproic Acid 94 ug/mL (50.0-100.0) 01/14/18 06:00 Ur Phencyclidine Scrn Negative (NEGATIVE) 01/14/18 03:00 Ur Amphetamines Screen Negative (NEGATIVE) 01/14/18 03:00 U Benzodiazepines Scrn Negative (NEGATIVE) 01/14/18 03:00 U Oth Cocaine Metabols Negative (NEGATIVE) 01/14/18 03:00 U Cannabinoids Screen Negative (NEGATIVE) 01/14/18 03:00 Alcohol, Quantitative < 10 mg/dL (0-10) 01/13/18 17:00 - Hospital Course Hospital Course: As per admission documentation 52 year old male with past medical history of seizure disorder who presents after a witnessed seizure on the street, brought in by EMS. Patient was in the hospital earlier for seizure was given medication and discharged. After being discharged he had another seizure while walking down the street with his friend. Patient does not know how long the seizure lasted for but denied hitting his head. He also denied any incontinence, tongue biting, or foaming from the mouth. He broke his fall with his hands and as a result has some abrasions on this right hand. Patient states he is compliant with his medication. We will reach out to his pharmacy to confirm. He was last admitted in October and November for similar episodes. Patient denies any chest pain, shortness of breath, fever, chills, headaches, nausea, vomiting, abdominal pain or any other complaints at this time. Hospital Course Patient was admitted for breakthrough seizure with known seizure disorder. Patient was evaluated by Dr. Michelle, Neurology. - Head CT 01/14 - No acute finding - EGG 01/14 - completed, no official report - UDS negative Patient was initially on Keppra 500 mg PO BID and Depakote ER 750 mg PO TID when he came into the hospital. He was switched to Keppra 1,000 PO BID and monitored overnight. There was a question of if the patient was compliant with his medications or if this was a breakthrough seizure with medication compliance. Patient's sister stated that the patient had his drugs mailed to him from [facility] and she knows he has them but the patient is responsible for his own medications. Patient's neurologist was unable to be reached because the patient could not remember the name of the neurologist and neither could the patient's sister. Patient was stable throughout his hospital stay without seizure activity. He was discharged home with the following instructions. Discharge Instructions Patient is to be discharged home. Patient is to follow up with his Neurologist in 1-2 days. Patient is to follow up with his primary care physician within one week of being discharged. Patient is to take his medications as directed in these instructions until he sees his neurologist. - Levetiracetam (Keppra/Roweepra) 1,000mg by mouth twice a day. If patient experiences any new or concerning symptoms, please go to the nearest emergency room. These discharge instructions were called and relayed to the patient's sister, Lynette Humphreys . She states understands the patient is now only on Keppra and no longer taking any other medications. She will make sure he follows up with his Neurologist and primary care physician. This is just a brief summary of the patient's hospital course. For full detail, please see EMR. Discharge Exam - Head Exam Head Exam: ATRAUMATIC, NORMOCEPHALIC - Eye Exam Eye Exam: EOMI, Normal appearance - ENT Exam ENT Exam: Mucous Membranes Moist - Neck Exam Neck exam: Full Rom - Respiratory Exam Respiratory Exam: Clear to PA & Lateral, NORMAL BREATHING PATTERN, UNREMARKABLE. absent: Accessory Muscle Use, Rales, Rhonchi, Wheezes, Respiratory Distress - Cardiovascular Exam Cardiovascular Exam: REGULAR RHYTHM, +S1, +S2 - GI/Abdominal Exam GI & Abdominal Exam: Normal Bowel Sounds, Soft, Unremarkable. absent: Distended , Firm, Guarding, Tenderness - Extremities Exam Extremities exam: normal inspection - Back Exam Back exam: absent: CVA tenderness (L), CVA tenderness (R) - Neurological Exam Neurological exam: Alert, CN II-XII Intact, Oriented x3 - Psychiatric Exam Psychiatric exam: Normal Affect, Normal Mood - Skin Skin Exam: Dry, Warm Discharge Plan - Discharge Medications Prescriptions: Levetiracetam [Roweepra] 1,000 mg PO BID #120 tablet - Follow Up Plan Condition: GOOD Disposition: HOME/ ROUTINE Instructions: Seizures, Adult (DC), Skin Abrasions (DC) Additional Instructions: Patient is to be discharged home. Patient is to follow up with his Neurologist in 1-2 days. Patient is to follow up with his primary care physician within one week of being discharged. Patient is to take his medications as directed in these instructions until he sees his neurologist. - Levetiracetam (Keppra/Roweepra) 1,000mg by mouth twice a day. If patient experiences any new or concerning symptoms, please go to the nearest emergency room. Referrals: Magdy Barrera MD [Primary Care Provider] - <Scot Downs - Last Filed: 01/16/18 14:20> Provider - Provider Date of Admission: 01/13/18 15:56 Attending physician: Scot Downs MD Primary care physician: [facility] Course - Lab Results Lab Results: Most Recent Lab Values WBC 3.8 10^3/ul (4.5-11.0) L 01/14/18 08:29 RBC 4.78 10^6/uL (3.5-6.1) 01/14/18 08:29 Hgb 14.5 g/dL (14.0-18.0) 01/14/18 08:29 Hct 42.7 % (42.0-52.0) 01/14/18 08:29 MCV 89.3 fl (80.0-105.0) 01/14/18 08:29 MCH 30.3 pg (25.0-35.0) 01/14/18 08:29 MCHC 34.0 g/dl (31.0-37.0) 01/14/18 08:29 RDW 13.5 % (11.5-14.5) 01/14/18 08:29 Plt Count 176 10^3/uL (120.0-450.0) 01/14/18 08:29 MPV 9.9 fl (7.0-11.0) 01/14/18 08: Gran % 33.0 % (50.0-68.0) L 01/14/18 08:29 Lymph % (Auto) 46.1 % (22.0-35.0) H 01/14/18 08: [place] % (Auto) 16.2 % (1.0-6.0) H 01/14/18 08:29 Eos % (Auto) 3.9 % (1.5-5.0) 01/14/18 08: Baso % (Auto) 0.8 % (0.0-3.0) 01/14/18 08: Gran # 1.26 (1.4-6.5) L 01/14/18 08: Lymph # (Auto) 1.8 (1.2-3.4) 01/14/18 08: [place] # (Auto) 0.6 (0.1-0.6) 01/14/18 08:29 Eos # (Auto) 0.2 (0.0-0.7) 01/14/18 08: Baso # (Auto) 0.03 K/mm3 (0.0-2.0) 01/14/18 08:29 Sodium 145 mmol/L (132-148) 01/14/18 06:00 Potassium 4.1 mmol/L (3.6-5.0) 01/14/18 06:00 Chloride 107 mmol/L (98-107) 01/14/18 06:00 Carbon Dioxide 24 mmol/L (21-33) 01/14/18 06:00 Anion Gap 18 (10-20) 01/14/18 06:00 BUN 17 mg/dL (7-21) 01/14/18 06:00 Creatinine 0.9 mg/dl (0.8-1.5) 01/14/18 06:00 Est GFR ( Amer) > 60 01/14/18 06:00 Est GFR (Non-Af Amer) > 60 01/14/18 06:00 Random Glucose 79 mg/dL (70-110) 01/14/18 06:00 Calcium 9.4 mg/dL (8.4-10.5) 01/14/18 06:00 Phosphorus 4.1 mg/dL (2.5-4.5) 01/14/18 06:00 Magnesium 2.1 mg/dL (1.7-2.2) 01/14/18 06:00 Total Bilirubin 0.7 mg/dL (0.2-1.3) 01/14/18 06:00 AST 34 U/L (17-59) 01/14/18 06:00 ALT 19 U/L (7-56) 01/14/18 06:00 Alkaline Phosphatase 28 U/L (38-126) L 01/14/18 06:00 Total Creatine Kinase 353 U/L (35-230) H 01/13/18 17:00 CK-MB (CK-2) 2.1 ng/mL (0.0-3.6) 01/13/18 17:00 CK-MB (CK-2) % Cancelled 01/13/18 17:00 Total Protein 7.2 g/dL (5.8-8.3) 01/14/18 06:00 Albumin 3.8 g/dL (3.0-4.8) 01/14/18 06:00 Globulin 3.4 gm/dL 01/14/18 06:00 Albumin/Globulin Ratio 1.1 (1.1-1.8) 01/14/18 06:00 Urine Opiates Screen Negative (NEGATIVE) 01/14/18 03:00 Urine Methadone Screen Negative (NEGATIVE) 01/14/18 03:00 Ur Barbiturates Screen Negative (NEGATIVE) 01/14/18 03:00 Valproic Acid 94 ug/mL (50.0-100.0) 01/14/18 06:00 Ur Phencyclidine Scrn Negative (NEGATIVE) 01/14/18 03:00 Ur Amphetamines Screen Negative (NEGATIVE) 01/14/18 03:00 U Benzodiazepines Scrn Negative (NEGATIVE) 01/14/18 03:00 U Oth Cocaine Metabols Negative (NEGATIVE) 01/14/18 03:00 U Cannabinoids Screen Negative (NEGATIVE) 01/14/18 03:00 Alcohol, Quantitative < 10 mg/dL (0-10) 01/13/18 17:00 Attending/Attestation - Attestation I have personally seen and examined this patient.: Yes I have fully participated in the care of the patient.: Yes I have reviewed all pertinent clinical information, including history, physical exam and plan: Yes Notes (Text): 01/16/18 14:19 attending note; Patient seen and examined with resident. Patient is a 52 year old male with past medical history of seizure disorder who presents after a witnessed seizure on the street, brought in by EMS. Patient was in the hospital earlier for seizure was given medication and discharged. Patient with seizure disorder since childhood. Patient also has some speech impairment/mild cognitive impairment. Patient lives with his sister. Patient has multiple ER visits for seizure. Medication compliance is in question. Neurology evaluation Appreciated. CT head is negative. EEG done and results pending. loaded with IV Keppra. Depakote discontinued. Will be discharged home with by mouth Keppra. Monitor closely. Case discussed with patient's sister in detail by medical and health services manager. upon discharge patient will follow up with PMD and neurologist.
== END 2018-01-15 09:04 | disposition home or self-care (01) | DRG 890 ==
LOC: ED 15:26 → ERH 15:56 → 2RNO 18:12
PROVIDERS: ADMIT Internal Medicine; ATTEND Internal Medicine
DX: G40.909 Epilepsy, unspecified, not intractable, without status epilepticus (principal); S60.511A Abrasion of right hand, initial encounter; G31.84 Mild cognitive impairment of uncertain or unknown etiology; F17.210 Nicotine dependence, cigarettes, uncomplicated; W19.XXXA Unspecified fall, initial encounter; Y93.01 Activity, walking, marching and hiking; Y92.410 Unspecified street and highway as the place of occurrence of the external cause; Z79.899 Other long term (current) drug therapy

== ENCOUNTER 2018-01-21 12:08 | Emergency (ER) | payer MEDICAID ==
[2018-01-21 12:13] VITALS: BMI 27.7
[2018-01-21 12:37] LABS: BASO # 0.02 K/mm3 (0.0-2.0); BASO % 0.5 % (0.0-3.0); EOS # 0.1 (0.0-0.7); EOS % 2.3 % (1.5-5.0); GRAN # 1.99 (1.4-6.5); GRAN % 50.1 % (50.0-68.0); HEMOGLOBIN 13.9 g/dL (14.0-18.0); LYMPH # 1.5 (1.2-3.4); MEAN CELL VOLUME 88.8 fl (80.0-105.0); MEAN CORPUSCULAR HEMOGLOBIN 30.4 pg (25.0-35.0); MEAN CORPUSCULAR HGB CONC 34.2 g/dl (31.0-37.0); MEAN PLATELET VOLUME 9.8 fl (7.0-11.0); MONO # 0.4 (0.1-0.6); MONO % 10.1 % (1.0-6.0); RBC 4.57 10^6/uL (3.5-6.1); RED CELL DISTRIBUTION WIDTH 13.3 % (11.5-14.5)
[2018-01-21 12:46] LABS: ALB/GLOB RATIO 1.2 (1.1-1.8); ALBUMIN 3.7 g/dL (3.0-4.8); AST/SGOT 21 U/L (17-59); BLOOD UREA NITROGEN 17 mg/dL (7-21); GFR AFRICAN-AMERICAN > 60; GFR NON-AFRICAN AMERICAN > 60
[2018-01-21 12:51] LABS: ALT/SGPT 26 U/L (7-56); CALCIUM 9.4 mg/dL (8.4-10.5)
[2018-01-21] MEDS ORDERED: Divalproex 500 mg ER (ONCE DAILY formulation) PO STA (14:25)
[2018-01-21 15:10] VITALS: BP 125/69; PULSE 78; RESP 20; TEMP 98.2; O2SAT 98
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
--- NOTE | 2018-01-22 09:19 | CARD ---
APPROVED REPORT EKG Measurement Heart [id number] CO [id number] <Conclusion> Normal sinus rhythm with sinus arrhythmia Normal ECG
== END 2018-01-21 15:20 | disposition home or self-care (01) ==
LOC: ED 12:08
DX: G40.909 Epilepsy, unspecified, not intractable, without status epilepticus (principal)

== ENCOUNTER 2018-02-21 18:28 | Emergency (ER) | payer MEDICAID ==
[2018-02-21 18:29] VITALS: BMI 27.7
[2018-02-21 18:43] VITALS: RESP 18; TEMP 98.2
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
[2018-02-21 19:32] VITALS: BP 129/75; PULSE 80; O2SAT 100
[2018-02-21 20:32] LABS: URINE BILIRUBIN SMALL (NEGATIVE); URINE BLOOD NEGATIVE (NEGATIVE); URINE GLUCOSE (UA) NEGATIVE (NEGATIVE); URINE LEUKOCYTE ESTERASE NEGATIVE Leu/uL (NEGATIVE); URINE PROTEIN 30 mg/dL (<30 mg/dL)
[2018-02-21 20:33] LABS: URINE APPEARANCE CLEAR (CLEAR); URINE COLOR YELLOW (YELLOW)
[2018-02-21 20:45] LABS: URINE BACTERIA FEW (NEG); URINE CALCIUM OXALATE CRYSTALS FEW /hpf; URINE RBC NEGATIVE /hpf (0-2)
[2018-02-21 21:02] LABS: BARBITURATES, UR NEGATIVE (NEGATIVE); BENZODIAZEPINES, UR NEGATIVE (NEGATIVE); OPIATES, UR NEGATIVE (NEGATIVE); PHENCYCLIDINE, UR NEGATIVE (NEGATIVE)
== END 2018-02-21 19:19 | disposition left against medical advice (07) ==
LOC: ED 18:28
DX: G40.909 Epilepsy, unspecified, not intractable, without status epilepticus (principal); F19.10 Other psychoactive substance abuse, uncomplicated

== ENCOUNTER 2018-02-25 22:15 | Observation (INO) | payer MEDICAID ==
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
[2018-02-26 00:03] LABS: HEMOGLOBIN 12.4 g/dL (14.0-18.0); MEAN CORPUSCULAR HEMOGLOBIN 27.2 pg (25.0-35.0); MEAN CORPUSCULAR HGB CONC 31.8 g/dl (31.0-37.0); MEAN PLATELET VOLUME 9.3 fl (7.0-11.0); RBC 4.56 10^6/uL (3.5-6.1); RED CELL DISTRIBUTION WIDTH 13.4 % (11.5-14.5); WHITE BLOOD COUNT 4.6 10^3/ul (4.5-11.0)
[2018-02-26 00:07] LABS: MEAN CELL VOLUME 85.5 fl (80.0-105.0)
[2018-02-26 00:18] LABS: ALB/GLOB RATIO 1.2 (1.1-1.8); ALBUMIN 4.1 g/dL (3.0-4.8); ALT/SGPT 18 U/L (7-56); AST/SGOT 31 U/L (17-59); BLOOD UREA NITROGEN 14 mg/dL (7-21); CALCIUM 9.5 mg/dL (8.4-10.5); GFR AFRICAN-AMERICAN > 60; GFR NON-AFRICAN AMERICAN > 60
[2018-02-26 00:29] LABS: TROPONIN I < 0.01 ng/mL
[2018-02-26 00:33] LABS: CK-MB 2.7 ng/mL (0.0-3.6)
[2018-02-26] MEDS ORDERED: Sodium Chloride 0.9% 1,000 ML IV SCH (02:45)
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
[2018-02-26] MEDS ORDERED: Barium Sulfate Susp 2.1% w/v, 2.0% w/w 450 mL Bottle PO ONE (08:35)
--- NOTE | 2018-02-26 08:38 | RAD ---
HISTORY: seizure COMPARISON: 12/11/2017 FINDINGS: LUNGS: No active pulmonary disease. PLEURA: No significant pleural effusion identified, no pneumothorax apparent. CARDIOVASCULAR: Normal. OSSEOUS STRUCTURES: No significant abnormalities. VISUALIZED UPPER ABDOMEN: Normal. OTHER FINDINGS: None. IMPRESSION: No active disease.
[2018-02-26] MEDS: Sodium Chloride 0.9% 1,000 ML IV SCH ×2 (09:55→14:19)
--- NOTE | 2018-02-26 09:58 | CT ---
PROCEDURE: CT HEAD WITHOUT CONTRAST. HISTORY: s/p seizure COMPARISON: None available. TECHNIQUE: Axial computed tomography images were obtained through the head/brain without intravenous contrast. Radiation dose: Total exam DLP = mGy-cm. This CT exam was performed using one or more of the following dose reduction techniques: Automated exposure control, adjustment of the mA and/or kV according to patient size, and/or use of iterative reconstruction technique. FINDINGS: HEMORRHAGE: No intracranial hemorrhage. BRAIN: No mass effect or edema. No atrophy or chronic microvascular ischemic changes. Left basal ganglia a sub centimeter lacune. VENTRICLES: Unremarkable. No hydrocephalus. CALVARIUM: Unremarkable. PARANASAL SINUSES: Unremarkable as visualized. No significant inflammatory changes. MASTOID AIR CELLS: Unremarkable as visualized. No inflammatory changes. OTHER FINDINGS: Right posterior parietal subcutaneous soft tissue hematoma. IMPRESSION: Left basal ganglia a sub centimeter lacune. Right posterior parietal subcutaneous soft tissue hematoma.
[2018-02-26 10:58] LABS: BARBITURATES, UR NEGATIVE (NEGATIVE); BENZODIAZEPINES, UR NEGATIVE (NEGATIVE); OPIATES, UR NEGATIVE (NEGATIVE); PHENCYCLIDINE, UR NEGATIVE (NEGATIVE)
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
[2018-02-26 11:33] VITALS: RESP 18
[2018-02-26 14:39] LABS: PH,URINE 6.5 (4.7-8.0); URINE APPEARANCE CLEAR (CLEAR); URINE BILIRUBIN NEGATIVE (NEGATIVE); URINE BLOOD NEGATIVE (NEGATIVE); URINE COLOR YELLOW (YELLOW); URINE GLUCOSE (UA) NEGATIVE (NEGATIVE); URINE LEUKOCYTE ESTERASE NEGATIVE Leu/uL (NEGATIVE); URINE PROTEIN NEGATIVE mg/dL (<30 mg/dL); URINE UROBILINOGEN 0.2 E.U./dL (<1 E.U./dL)
--- NOTE | 2018-02-26 22:23 | CARD ---
APPROVED REPORT EKG Measurement Heart [id number] <Conclusion> Normal sinus rhythm with sinus arrhythmia Normal ECG
[2018-02-27] MEDS ORDERED: Pantoprazole 40 mg EC Tab PO SCH (06:00)
[2018-02-27 06:14] VITALS: O2SAT 100
[2018-02-27 06:26] LABS: BASO # 0.01 K/mm3 (0.0-2.0); BASO % 0.3 % (0.0-3.0); EOS # 0.2 (0.0-0.7); EOS % 5.1 % (1.5-5.0); GRAN # 0.86 (1.4-6.5); GRAN % 24.2 % (50.0-68.0); HEMOGLOBIN 13.4 g/dL (14.0-18.0); LYMPH # 2.1 (1.2-3.4); LYMPH % 57.7 % (22.0-35.0); MEAN CORPUSCULAR HEMOGLOBIN 30.2 pg (25.0-35.0); MEAN CORPUSCULAR HGB CONC 33.7 g/dl (31.0-37.0); MONO # 0.5 (0.1-0.6); MONO % 12.7 % (1.0-6.0); RBC 4.43 10^6/uL (3.5-6.1); RED CELL DISTRIBUTION WIDTH 13.8 % (11.5-14.5); WHITE BLOOD COUNT 3.6 10^3/ul (4.5-11.0)
[2018-02-27 06:40] LABS: MEAN CELL VOLUME 89.8 fl (80.0-105.0)
[2018-02-27 07:30] LABS: ALBUMIN 3.1 g/dL (3.0-4.8); ALT/SGPT 13 U/L (7-56); AST/SGOT 21 U/L (17-59); BLOOD UREA NITROGEN 9 mg/dL (7-21); CALCIUM 9.1 mg/dL (8.4-10.5); GFR AFRICAN-AMERICAN > 60; GFR NON-AFRICAN AMERICAN > 60
--- NOTE | 2018-02-27 09:28 | RAD ---
PROCEDURE: Radiographs of the Right Shoulder HISTORY: Status post seizure COMPARISON: No prior. FINDINGS: BONES: Normal. No fracture. JOINTS: Degenerative changes of the right acromioclavicular joint with apparent deformity of the the acromion possibly representing old posttraumatic sequela. Mild degenerative changes of the right humeral joint. SOFT TISSUES: Normal. OTHER FINDINGS: None. IMPRESSION: No evidence of acute displaced fracture nor dislocation. Deformity of with apparent overgrowth of the acromion possibly representing old posttraumatic sequela. Degenerative changes of the acromioclavicular and glenohumeral joint.
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
--- NOTE | 2018-02-27 11:28 | CP.PCM.DIS ---
<Erica Fallon - Last Filed: 02/27/18 12:14> Provider - Provider Date of Admission: 02/26/18 02:13 Attending physician: Scot Downs MD Primary care physician: Juan Carlos Guillen MD Consults: Dr. Camila Foster Time Spent in preparation of Discharge (in minutes): 40 Hospital Course - Lab Results Lab Results: Most Recent Lab Values WBC 3.6 10^3/ul (4.5-11.0) L D 02/27/18 06:00 RBC 4.43 10^6/uL (3.5-6.1) 02/27/18 06:00 Hgb 13.4 g/dL (14.0-18.0) L 02/27/18 06:00 Hct 39.8 % (42.0-52.0) L 02/27/18 06:00 MCV 89.8 fl (80.0-105.0) D 02/27/18 06:00 MCH 30.2 pg (25.0-35.0) 02/27/18 06:00 MCHC 33.7 g/dl (31.0-37.0) 02/27/18 06:00 RDW 13.8 % (11.5-14.5) 02/27/18 06:00 Plt Count 144 10^3/uL (120.0-450.0) 02/27/18 06:00 MPV 10.0 fl (7.0-11.0) 02/27/18 06:00 Gran % 24.2 % (50.0-68.0) L 02/27/18 06:00 Lymph % (Auto) 57.7 % (22.0-35.0) H 02/27/18 06:00 [place] % (Auto) 12.7 % (1.0-6.0) H 02/27/18 06:00 Eos % (Auto) 5.1 % (1.5-5.0) H 02/27/18 06:00 Baso % (Auto) 0.3 % (0.0-3.0) 02/27/18 06:00 Gran # 0.86 (1.4-6.5) L 02/27/18 06:00 Lymph # (Auto) 2.1 (1.2-3.4) 02/27/18 06:00 [place] # (Auto) 0.5 (0.1-0.6) 02/27/18 06:00 Eos # (Auto) 0.2 (0.0-0.7) 02/27/18 06:00 Baso # (Auto) 0.01 K/mm3 (0.0-2.0) 02/27/18 06:00 Sodium 144 mmol/L (132-148) 02/27/18 06:00 Potassium 4.5 mmol/L (3.6-5.0) 02/27/18 06:00 Chloride 111 mmol/L (98-107) H 02/27/18 06:00 Carbon Dioxide 24 mmol/L (21-33) 02/27/18 06:00 Anion Gap 14 (10-20) 02/27/18 06:00 BUN 9 mg/dL (7-21) 02/27/18 06:00 Creatinine 0.9 mg/dl (0.8-1.5) 02/27/18 06:00 Est GFR ( Amer) > 60 02/27/18 06:00 Est GFR (Non-Af Amer) > 60 02/27/18 06:00 Random Glucose 92 mg/dL (70-110) 02/27/18 06:00 Calcium 9.1 mg/dL (8.4-10.5) 02/27/18 06:00 Phosphorus 3.0 mg/dL (2.5-4.5) 02/25/18 23:46 Magnesium 2.1 mg/dL (1.7-2.2) 02/26/18 09:30 Total Bilirubin 0.4 mg/dL (0.2-1.3) 02/27/18 06:00 AST 21 U/L (17-59) 02/27/18 06:00 ALT 13 U/L (7-56) 02/27/18 06:00 Alkaline Phosphatase 28 U/L (38-126) L 02/27/18 06:00 Lactate Dehydrogenase 578 U/L (333-699) 02/25/18 23:46 Total Creatine Kinase 362 U/L (35-230) H 02/27/18 06:00 CK-MB (CK-2) 1.0 ng/mL (0.0-3.6) 02/27/18 06:00 CK-MB (CK-2) % Cancelled 02/25/18 23:46 Troponin I < 0.01 ng/mL 02/25/18 23:46 Total Protein 6.2 g/dL (5.8-8.3) 02/27/18 06:00 Albumin 3.1 g/dL (3.0-4.8) 02/27/18 06:00 Globulin 3.1 gm/dL 02/27/18 06:00 Albumin/Globulin Ratio 1.0 (1.1-1.8) L 02/27/18 06:00 Urine Color Yellow (YELLOW) 02/26/18 14:20 Urine Appearance Clear (CLEAR) 02/26/18 14:20 Urine pH 6.5 (4.7-8.0) 02/26/18 14:20 Ur Specific [place] 1.010 (1.005-1.035) 02/26/18 14:20 Urine Protein Negative mg/dL (<30 mg/dL) 02/26/18 14:20 Urine Glucose (UA) Negative mg/dL (NEGATIVE) 02/26/18 14:20 Urine Ketones Negative mg/dL (NEGATIVE) 02/26/18 14:20 Urine Blood Negative (NEGATIVE) 02/26/18 14:20 Urine Nitrate Negative (NEGATIVE) 02/26/18 14:20 Urine Bilirubin Negative (NEGATIVE) 02/26/18 14:20 Urine Urobilinogen 0.2 E.U./dL (<1 E.U./dL) 02/26/18 14:20 Ur Leukocyte Esterase Negative [place]/uL (NEGATIVE) 02/26/18 14:20 Urine Opiates Screen Negative (NEGATIVE) 02/26/18 10:10 Urine Methadone Screen Negative (NEGATIVE) 02/26/18 10:10 Ur Barbiturates Screen Negative (NEGATIVE) 02/26/18 10:10 Ur Phencyclidine Scrn Negative (NEGATIVE) 02/26/18 10:10 Ur Amphetamines Screen Negative (NEGATIVE) 02/26/18 10:10 U Benzodiazepines Scrn Negative (NEGATIVE) 02/26/18 10:10 U Oth Cocaine Metabols Negative (NEGATIVE) 02/26/18 10:10 U Cannabinoids Screen Negative (NEGATIVE) 02/26/18 10:10 Alcohol, Quantitative < 10 mg/dL (0-10) 02/25/18 23:46 - Hospital Course Hospital Course: 52 year old male with a history of seizures comes in today after having a seizure. The patient was attending a Narcotics anonymous meeting when he reports going blank and doesn't remember anything after that. When the patient came to the friend reported that he had been down on the floor for approximately 5 minutes. He also reports biting the inside of his lip on the left side. He denies any confusion after the seizure. Patient was recently discharged from [facility] in October 2017 for similar episodes. At that time he had a Head CT done that was negative and EEG showed normal awake and drowsy cycle. Patient was denies any fevers, chills, nausea, vomiting, dizziness, chest pain, headache, syncopal episodes, or any other complaints. Further questioning revealed that the patient did miss a dose or so prior to his seizure. The patient was admitted to telemetry with seizure, aspiration precautions , and fall precautions. CT of the head showed an old, sub-centimeter left basal ganglia lacunar infect and a right posterior parietal subcutaneous soft tissue hematoma. Patient underwent a right shoulder X-ray given he complained of of right shoulder pain that showed no evidence of acute displaced fracture nor dislocation. Deformity of with apparent overgrowth of the acromion possibly representing old posttraumatic sequela. Degenerative changes of the acromioclavicular and glenohumeral joint. Neurology was consulted and recommended the patient take Keppra 1,500 mg BID and follow up with Dr. Michelle as an outpatient. Psychiatry was consulted thought the patients periodic agitation at home, that was reported from his sister that he used to live with and his current roomate, is related to the patients neurocognitive deficits, impulse control disorder, poor insight, but is not a danger to himself and others. The patient was informed that his Keppra dose was increased and that he should take it once at 8:00 AM and once at 8:00 PM. He was discharged with the below written instructions and recommendations. - Date & Time of H&P Date of H&P: 02/27/18 Time of H&P: 12:19 Discharge Exam - Head Exam Head Exam: ATRAUMATIC, NORMAL INSPECTION, NORMOCEPHALIC - Eye Exam Eye Exam: EOMI, Normal appearance - ENT Exam ENT Exam: Mucous Membranes Moist - Neck Exam Neck exam: Normal Inspection - Respiratory Exam Respiratory Exam: Clear to PA & Lateral, NORMAL BREATHING PATTERN. absent: Accessory Muscle Use - Cardiovascular Exam Cardiovascular Exam: RRR, +S1, +S2 - GI/Abdominal Exam GI & Abdominal Exam: Normal Bowel Sounds - Extremities Exam Extremities exam: normal inspection - Back Exam Back exam: NORMAL INSPECTION. absent: CVA tenderness (L), CVA tenderness (R) - Neurological Exam Neurological exam: Alert, CN II-XII Intact, Oriented x3 - Psychiatric Exam Psychiatric exam: Normal Affect, Normal Mood - Skin Skin Exam: Dry, Intact, Normal Color, Warm Discharge Plan - Discharge Medications Prescriptions: Levetiracetam [Keppra] 1,500 mg PO Q12H #60 tablet - Follow Up Plan Condition: STABLE Disposition: HOME/ ROUTINE Instructions: Seizures, Adult (DC) Additional Instructions: 1) Please follow up with your neurologist, or can see Dr Michelle in the office within 1 -2 weeks. 2) Also follow up with your primary care doctor, Dr. Guillen, or if you do not have one at this time you can come to the outpatient [facility]. 3) Its extremely important that you dont drive or operate any heavy machinery. 4) Its extremely important that you take your Keppra, 1500 mg at 08:00 AM in the morning and 08:00 PM at night. 5) Avoid stressors, keep hydrated, and eat a well balance diet. Referrals: Wilmer ABDULLAHI,Juan Carlos [Primary Care Provider] - <Scot Downs - Last Filed: 02/27/18 15:11> Provider - Provider Date of Admission: 02/26/18 02:13 Attending physician: Scot Downs MD Primary care physician: Juan Carlos Guillen MD Hospital Course - Lab Results Lab Results: Most Recent Lab Values WBC 3.6 10^3/ul (4.5-11.0) L D 02/27/18 06:00 RBC 4.43 10^6/uL (3.5-6.1) 02/27/18 06:00 Hgb 13.4 g/dL (14.0-18.0) L 02/27/18 06:00 Hct 39.8 % (42.0-52.0) L 02/27/18 06:00 MCV 89.8 fl (80.0-105.0) D 02/27/18 06:00 MCH 30.2 pg (25.0-35.0) 02/27/18 06:00 MCHC 33.7 g/dl (31.0-37.0) 02/27/18 06:00 RDW 13.8 % (11.5-14.5) 02/27/18 06:00 Plt Count 144 10^3/uL (120.0-450.0) 02/27/18 06:00 MPV 10.0 fl (7.0-11.0) 02/27/18 06:00 Gran % 24.2 % (50.0-68.0) L 02/27/18 06:00 Lymph % (Auto) 57.7 % (22.0-35.0) H 02/27/18 06:00 [place] % (Auto) 12.7 % (1.0-6.0) H 02/27/18 06:00 Eos % (Auto) 5.1 % (1.5-5.0) H 02/27/18 06:00 Baso % (Auto) 0.3 % (0.0-3.0) 02/27/18 06:00 Gran # 0.86 (1.4-6.5) L 02/27/18 06:00 Lymph # (Auto) 2.1 (1.2-3.4) 02/27/18 06:00 [place] # (Auto) 0.5 (0.1-0.6) 02/27/18 06:00 Eos # (Auto) 0.2 (0.0-0.7) 02/27/18 06:00 Baso # (Auto) 0.01 K/mm3 (0.0-2.0) 02/27/18 06:00 Sodium 144 mmol/L (132-148) 02/27/18 06:00 Potassium 4.5 mmol/L (3.6-5.0) 02/27/18 06:00 Chloride 111 mmol/L (98-107) H 02/27/18 06:00 Carbon Dioxide 24 mmol/L (21-33) 02/27/18 06:00 Anion Gap 14 (10-20) 02/27/18 06:00 BUN 9 mg/dL (7-21) 02/27/18 06:00 Creatinine 0.9 mg/dl (0.8-1.5) 02/27/18 06:00 Est GFR ( Amer) > 60 02/27/18 06:00 Est GFR (Non-Af Amer) > 60 02/27/18 06:00 Random Glucose 92 mg/dL (70-110) 02/27/18 06:00 Calcium 9.1 mg/dL (8.4-10.5) 02/27/18 06:00 Phosphorus 3.0 mg/dL (2.5-4.5) 02/25/18 23:46 Magnesium 2.1 mg/dL (1.7-2.2) 02/26/18 09:30 Total Bilirubin 0.4 mg/dL (0.2-1.3) 02/27/18 06:00 AST 21 U/L (17-59) 02/27/18 06:00 ALT 13 U/L (7-56) 02/27/18 06:00 Alkaline Phosphatase 28 U/L (38-126) L 02/27/18 06:00 Lactate Dehydrogenase 578 U/L (333-699) 02/25/18 23:46 Total Creatine Kinase 362 U/L (35-230) H 02/27/18 06:00 CK-MB (CK-2) 1.0 ng/mL (0.0-3.6) 02/27/18 06:00 CK-MB (CK-2) % Cancelled 02/25/18 23:46 Troponin I < 0.01 ng/mL 02/25/18 23:46 Total Protein 6.2 g/dL (5.8-8.3) 02/27/18 06:00 Albumin 3.1 g/dL (3.0-4.8) 02/27/18 06:00 Globulin 3.1 gm/dL 02/27/18 06:00 Albumin/Globulin Ratio 1.0 (1.1-1.8) L 02/27/18 06:00 Urine Color Yellow (YELLOW) 02/26/18 14:20 Urine Appearance Clear (CLEAR) 02/26/18 14:20 Urine pH 6.5 (4.7-8.0) 02/26/18 14:20 Ur Specific [place] 1.010 (1.005-1.035) 02/26/18 14:20 Urine Protein Negative mg/dL (<30 mg/dL) 02/26/18 14:20 Urine Glucose (UA) Negative mg/dL (NEGATIVE) 02/26/18 14:20 Urine Ketones Negative mg/dL (NEGATIVE) 02/26/18 14:20 Urine Blood Negative (NEGATIVE) 02/26/18 14:20 Urine Nitrate Negative (NEGATIVE) 02/26/18 14:20 Urine Bilirubin Negative (NEGATIVE) 02/26/18 14:20 Urine Urobilinogen 0.2 E.U./dL (<1 E.U./dL) 02/26/18 14:20 Ur Leukocyte Esterase Negative [place]/uL (NEGATIVE) 02/26/18 14:20 Urine Opiates Screen Negative (NEGATIVE) 02/26/18 10:10 Urine Methadone Screen Negative (NEGATIVE) 02/26/18 10:10 Ur Barbiturates Screen Negative (NEGATIVE) 02/26/18 10:10 Ur Phencyclidine Scrn Negative (NEGATIVE) 02/26/18 10:10 Ur Amphetamines Screen Negative (NEGATIVE) 02/26/18 10:10 U Benzodiazepines Scrn Negative (NEGATIVE) 02/26/18 10:10 U Oth Cocaine Metabols Negative (NEGATIVE) 02/26/18 10:10 U Cannabinoids Screen Negative (NEGATIVE) 02/26/18 10:10 Alcohol, Quantitative < 10 mg/dL (0-10) 02/25/18 23:46 Attending/Attestation - Attestation I have personally seen and examined this patient.: Yes I have fully participated in the care of the patient.: Yes I have reviewed all pertinent clinical information, including history, physical exam and plan: Yes Notes (Text): 02/27/18 15:09 attending note; Patient seen and examined with resident. patient is a 52-year-old male well-known to our service was admitted with an episode of seizure. patient is seizure free since admission. Patient with a history of mild cognitive impairment/speech impairment. Noncompliance with medications Leading to seizure. Keppra dosage increased to 1500 by mouth twice a day. Psychiatric evaluation appreciated. Patient has impulse control problem at times due to cognitive impairment. Patient is currently medically stable. We will follow up with PMD. Patient is strongly advised to take medications regularly. Strongly advised to avoid alcohol/drug abuse.
[2018-02-27 12:19] VITALS: BP 119/81; PULSE 59; TEMP 98
--- NOTE | 2018-02-28 00:46 | CON ---
DATE: 02/27/2018 HISTORY OF PRESENT ILLNESS: In short, the patient is a 52-year-old male, medical history includes seizure disorder. The patient also has questionable history of alcohol use disorder. The patient is familiar to this publicity writer from the previous admission on the medical side. 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 The patient was admitted on the medical side for possible seizure episode. Psych consult was called because the patient has history of aggression 2 years back. The patient was seen and examined, discussed with the medical team as well as nursing staff. As per medical team, the patient has questionable history of compliance with the medications. The patient has history of aggression, but most recent aggression was about 2 years back. The patient was seen and examined today. The patient presented to be in happy mood. The patient has concrete thought process. The patient was smiling at times inappropriately. The patient has no abstractive abilities. The patient reported that he is compliant with the medications. When this publicity writer asked if he sure the patient got offended, the patient said he always compliant with the medication and he takes medication three times a day. The patient said that he has no problems. The patient said that he is not using any drugs. The patient reported that he has good appetite and sleep. The patient denied that he had history of depression, denied thoughts of harming himself or others. The patient denied thoughts of hopelessness or helplessness and this publicity writer is not sure if the patient understood the question. The patient presented relatively well. VITAL SIGNS: Vital signs seems to be stable. Temperature 98, pulse is 59, blood pressure 119/81, respirations 18, oxygen saturation is 100. MEDICATIONS: Reviewed. The patient is on heparin, Keppra, Protonix and sodium chloride. LABORATORY DATA: Labs reviewed. WBC 3.6, granulocytes 0.86. Chemistry reviewed. Urine reviewed. Toxicology is negative. MENTAL STATUS EXAMINATION: The patient presented to be alert. The patient oriented in self and place, but not in time. The patient most likely has some neurocognitive deficit. The patient has childlike demeanor. The patient was smiling inappropriately. Intermittent eye contact. Thought process seems to be concrete. Thought content, the patient denied visual, auditory, tactile hallucinations. Denied paranoid ideation. The patient adamantly denied thoughts of harming himself or others. Denied intent or plan. Insight and judgment seems to be limited. Impulses are well controlled while in the hospital. IMPRESSION: Most likely, the patient has neurocognitive deficits. The patient has developmental disability most likely, but this publicity writer is not sure. The patient also might have some impulse control disorder or aggressive episodes, which took place more than 2 years ago, could be related either to medications or impulse control disorder or neurocognitive deficit. PLAN: Continue current management. Continue current medication. At this point, the patient pose no imminent danger to self or others. The patient does not want to take any other medication other than he is taking right now. Case was discussed with Dr. Downs in detail. Should you have any questions, give me a call back. Thank you very much. Kristin Lomeli MD
== END 2018-02-27 14:13 | disposition home or self-care (01) ==
LOC: ED 22:15 → ERH 02-26 02:13 → 2RSO 02-26 03:15
PROVIDERS: ADMIT Internal Medicine; ATTEND Internal Medicine
DX: G40.909 Epilepsy, unspecified, not intractable, without status epilepticus (principal); F63.9 Impulse disorder, unspecified; R41.83 Borderline intellectual functioning; M25.511 Pain in right shoulder; F17.210 Nicotine dependence, cigarettes, uncomplicated; Z91.14 Patient's other noncompliance with medication regimen
CPT/HCPCS: 36415; 70450; 71045; 73030; 80053; 80177; 80320; 80324; 80345; 80346; 80349; 80353; 80358; 80361; 81003; 82550; 82553; 83615; 83735; 83992; 84100; 84484; 85025; 85027; 93005; 96372; 96374; 99285; C9113; G0378; J1644; J7030

== ENCOUNTER 2018-03-02 17:23 | Emergency (ER) | payer MEDICAID ==
[2018-03-02] MEDS ORDERED: Metoprolol 1 mg/ml Inj IVP STA (18:28)
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
[2018-03-02] MEDS ORDERED: Insulin Regular 1 UNITS/0.01 ML ML IVP STA (18:29)
[2018-03-02 19:24] VITALS: RESP 18; TEMP 98.2; O2SAT 99
[2018-03-02 20:01] LABS: BASO # 0.03 K/mm3 (0.0-2.0); BASO % 0.4 % (0.0-3.0); EOS % 0.6 % (1.5-5.0); GRAN # 4.32 (1.4-6.5); GRAN % 64.5 % (50.0-68.0); HEMOGLOBIN 13.6 g/dL (14.0-18.0); LYMPH # 1.7 (1.2-3.4); LYMPH % 25.4 % (22.0-35.0); MEAN CORPUSCULAR HGB CONC 34.4 g/dl (31.0-37.0); MEAN PLATELET VOLUME 9.2 fl (7.0-11.0); MONO # 0.6 (0.1-0.6); MONO % 9.1 % (1.0-6.0); RBC 4.54 10^6/uL (3.5-6.1); RED CELL DISTRIBUTION WIDTH 13.8 % (11.5-14.5); WHITE BLOOD COUNT 6.7 10^3/ul (4.5-11.0)
[2018-03-02 20:19] LABS: ALB/GLOB RATIO 1.1 (1.1-1.8); ALBUMIN 4.2 g/dL (3.0-4.8); ALT/SGPT 30 U/L (7-56); AST/SGOT 31 U/L (17-59); BLOOD UREA NITROGEN 30 mg/dL (7-21); CALCIUM 9.5 mg/dL (8.4-10.5); GFR AFRICAN-AMERICAN > 60; GFR NON-AFRICAN AMERICAN > 60
--- NOTE | 2018-03-02 20:41 | ED PDOC ---
Physical Exam Vital Signs Reviewed: Yes Vital Signs Temp Pulse Resp Pulse Ox 03/02/18 19:23 98.2 F 93 H 18 99 Temperature: Afebrile Blood Pressure: Normal Pulse: Tachycardic Respiratory Rate: Normal Appearance: Positive for: Well-Appearing, Non-Toxic, Comfortable Pain Distress: None Mental Status: Positive for: Alert and Oriented X 3 - Systems Exam Head: Present: Atraumatic, Normocephalic Pupils: Present: PERRL Extroacular Muscles: Present: EOMI Conjunctiva: Present: Normal Mouth: Present: Moist Mucous Membranes Neck: Present: Normal Range of Motion Respiratory/Chest: Present: Clear to Auscultation, Good Air Exchange. No: Respiratory Distress, Accessory Muscle Use Cardiovascular: Present: Regular Rate and Rhythm, Normal S1, S2. No: Murmurs Abdomen: No: Tenderness, Distention, Peritoneal Signs Back: Present: Normal Inspection Upper Extremity: Present: Normal Inspection. No: Cyanosis, Edema Lower Extremity: Present: Normal Inspection. No: Edema Neurological: Present: GCS=15, CN II-XII Intact, Speech Normal Skin: Present: Warm, Dry, Normal Color. No: Rashes Psychiatric: Present: Alert, Oriented x 3, Normal Insight, Normal Concentration Medical Decision Making ED Course and Treatment: 03/02/18 19:00 Case endorsed to me by Dr. Lees, who evaluated patient with medical office scheduler, for pending labs/final disposition. Patient is a 52 year old male, with past medical history of seizure disorder on Keppra/lamictal, presented to the Emergency department earlier today for seizure with no history of urinary incontinence or tongue biting. Patient states he feels fine. Patient has hx. of recurrent visits to the Emergency department for similar episodes. Patient denies any chest pain or shortness of breath. Patient is resting comfortably in bed with no new complaints. Patient with hx. of inconsistent compliance with his anticonvulsant medications. 03/02/18 22:03 Patient continues to feel fine completely asymptomatic.Requesting discharge.Patient is strongly advised to remain compliant with his meds.States he will do so. - Lab Interpretations Lab Results: 03/02/18 19:48 03/02/18 19:48 Lab Results 03/02/18 19:48: Sodium 141, Potassium 4.1, Chloride 104, Carbon Dioxide 25, Anion Gap 16, BUN 30 H, Creatinine 0.9, Est GFR ( Amer) > 60, Est GFR ( Non-Af Amer) > 60, Random Glucose 95, Calcium 9.5, Total Bilirubin 0.6, AST 31, ALT 30, Alkaline Phosphatase 29 L, Total Protein 7.9, Albumin 4.2, Globulin 3.7 , Albumin/Globulin Ratio 1.1 03/02/18 19:48: WBC 6.7 D, RBC 4.54, Hgb 13.6 L, Hct 39.5 L, MCV 87.0, MCH 30.0 , MCHC 34.4, RDW 13.8, Plt Count 215, MPV 9.2, Gran % 64.5, Lymph % (Auto) 25.4 , Bent % (Auto) 9.1 H, Eos % (Auto) 0.6 L, Baso % (Auto) 0.4, Gran # 4.32, Lymph # (Auto) 1.7, Bent # (Auto) 0.6, Eos # (Auto) 0.0, Baso # (Auto) 0.03 - Scribe Statement The provider has reviewed the documentation as recorded by the Scribe Robin Tidwell. All medical record entries made by the Scribe were at my direction and personally dictated by me. I have reviewed the chart and agree that the record accurately reflects my personal performance of the history, physical exam, medical decision making, and the department course for this patient. I have also personally directed, reviewed, and agree with the discharge instructions and disposition. Disposition/Present on Arrival - Present on Arrival Any Indicators Present on Arrival: No History of DVT/PE: No History of Uncontrolled Diabetes: No Urinary Catheter: No History of Decub. Ulcer: No History Surgical Site Infection Following: None - Disposition Have Diagnosis and Disposition been Completed?: Yes Diagnosis: Seizure disorder Disposition: HOME/ ROUTINE Disposition Time: 22:05 Patient Plan: Discharge Patient Problems: Current Active Problems Problem Status Onset Seizure Chronic Condition: GOOD Forms: [employer] ([place] [employer])
[2018-03-02 22:11] VITALS: BP 132/86; PULSE 88
== END 2018-03-02 22:11 | disposition home or self-care (01) ==
LOC: ED 17:23
DX: G40.909 Epilepsy, unspecified, not intractable, without status epilepticus (principal)

== ENCOUNTER 2018-03-03 22:31 | Emergency (ER) | payer MEDICAID ==
[2018-03-03 23:22] VITALS: BP 126/70; PULSE 76; RESP 18; TEMP 98.2; O2SAT 99
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
== END 2018-03-03 23:40 | disposition home or self-care (01) ==
LOC: ED 22:31
DX: G40.909 Epilepsy, unspecified, not intractable, without status epilepticus (principal)

== ENCOUNTER 2018-05-03 10:38 | Emergency (ER) | payer MEDICAID ==
[2018-05-03 10:41] VITALS: RESP 18; TEMP 98.2; O2SAT 98; BMI 27.1
[2018-05-03 11:16] LABS: BASO # 0.03 K/mm3 (0.0-2.0); BASO % 0.5 % (0.0-3.0); EOS # 0.1 (0.0-0.7); EOS % 1.7 % (1.5-5.0); GRAN # 3.53 (1.4-6.5); GRAN % 60.8 % (50.0-68.0); HEMOGLOBIN 14.6 g/dL (14.0-18.0); LYMPH # 1.6 (1.2-3.4); LYMPH % 27.4 % (22.0-35.0); MEAN CELL VOLUME 86.6 fl (80.0-105.0); MEAN CORPUSCULAR HEMOGLOBIN 30.2 pg (25.0-35.0); MEAN CORPUSCULAR HGB CONC 34.8 g/dl (31.0-37.0); MEAN PLATELET VOLUME 9.5 fl (7.0-11.0); MONO # 0.6 (0.1-0.6); MONO % 9.6 % (1.0-6.0); RBC 4.84 10^6/uL (3.5-6.1); RED CELL DISTRIBUTION WIDTH 13.7 % (11.5-14.5); WHITE BLOOD COUNT 5.8 10^3/ul (4.5-11.0)
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
[2018-05-03 11:26] LABS: ALB/GLOB RATIO 1.1 (1.1-1.8); ALBUMIN 3.7 g/dL (3.0-4.8); ALT/SGPT 12 U/L (7-56); AST/SGOT 25 U/L (17-59); BLOOD UREA NITROGEN 15 mg/dL (7-21); CALCIUM 9.4 mg/dL (8.4-10.5); GFR NON-AFRICAN AMERICAN > 60
[2018-05-03] MEDS ORDERED: levETIRAcetam 1,000 MG in Sodium Chloride 0.9% 100 ML IV ONE (11:34)
[2018-05-03 13:14] VITALS: BP 123/79; PULSE 75
== END 2018-05-03 13:11 | disposition home or self-care (01) ==
LOC: ED 10:38
DX: G40.909 Epilepsy, unspecified, not intractable, without status epilepticus (principal); F17.210 Nicotine dependence, cigarettes, uncomplicated
CPT/HCPCS: 80053; 80164; 85025; 96374; 99285; J1953